=== PATIENT | male | born 1960 | race Caucasian/White ===

== ENCOUNTER 2019-06-28 11:03 | Outpatient (CLI) | payer MEDICARE, MEDICAID, SELFPAY ==
[2019-06-28 12:28] LABS: Free T4 Free Thyroxine 1.35 ng/mL (0.78-2.19)
== END 2019-06-28 11:04 | disposition home or self-care (01) ==
PROVIDERS: Visit Provider Internal Medicine Endocrinology, Diabetes & Metabolism
DX: E03.9 Hypothyroidism, unspecified (principal)
CPT/HCPCS: 36415; 84439; 84443

== ENCOUNTER 2019-07-06 11:41 | Outpatient (CLI) | payer MEDICARE, MEDICAID, SELFPAY ==
[2019-07-06 12:13] LABS: Hematocrit 33.5 % (42.0-52.0); Hemoglobin 10.5 g/dL (14.0-18.0); Immature Platelet Fraction Pct 2.9 % (0.9-11.2); Mean Corpuscular HGB Conc 31.3 g/dl (32-36); Mean Corpuscular Hemoglobin 28.8 pg (26-34); Mean Corpuscular Volume 91.8 fl (80-100); Platelet Count Result 117 k/mm3 (150-375); Red Blood Count 3.65 M/mm3 (4.6-6.20); Red Cell Distribution Width 14.4 % (11.5-14.5); White Blood Count 6.3 K/mm3 (4.5-10.0)
[2019-07-06 12:23] LABS: Alanine Aminotransferase 19 U/L (4-50); Albumin Level 4.5 g/dL (3.5-5.1); Blood Urea Nitrogen 43 mg/dL (9-20); Calcium 9.1 mg/dL (8.4-10.2); Carbon Dioxide 24 mmol/L (22-30); Chloride 106 mmol/L (98-107); Cholesterol 84 mg/dL (0-200); Estimated Glomerular Filt Rate 19; Glucose 153 mg/dL (75-110); HDL Direct 35 mg/dL; Phosphorus 4.3 mg/dL (2.5-4.5); Potassium 4.1 mmol/L (3.4-5.0); Sodium 140 mmol/L (137-145); Triglycerides 136 mg/dL (<150)
[2019-07-06 12:34] LABS: LDL Cholesterol Direct < 30 mg/dL; Parathyroid Intact 155.2 pg/mL (7.5-53.5)
[2019-07-06 13:06] LABS: Total Protein Urine Random 578 mg/dL
[2019-07-06 13:09] LABS: Vitamin D 25 Hydroxy 40.5 ng/mL
== END 2019-07-06 11:42 | disposition home or self-care (01) ==
PROVIDERS: Visit Provider Internal Medicine Nephrology
DX: N18.4 Chronic kidney disease, stage 4 (severe) (principal)
CPT/HCPCS: 36415; 80061; 80069; 82306; 82570; 83970; 84156; 84460; 85027; 85055

== ENCOUNTER 2019-11-12 19:09 | Inpatient (IN) | payer MEDICARE, MEDICAID, SELFPAY ==
--- NOTE | ~2019-11-12 | CT_ITS ---
EXAMINATION: CT brain wo con EXAM DATE: 11/12/2019 20:31 INDICATION: Fall, head injury. TECHNIQUE: Spiral CT of the head was performed without contrast. Axial, coronal and sagittal images were reviewed. The dose-length product (DLP) for this examination was 681.00 mGy-cm. The exposure w as tailored according to patient size, and iterative reconstruction (ASIR) was used as additional dos e reduction technique. There is no prior study for comparison. 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 There is no acute intraparenchymal hemorrhage. N o evidence of intraparenchymal brain mass lesion. No evidence of acute infarction. There is no mass effect or midline shift. The ventricles are normal in size. There are no extra-axial collections. There are no acute calvarial fractures. The orbits are unremarkable. Soft tissue is unremarkable. The visualized sinuses and mastoid air cells are well aerated. IMPRESSION: 1. No acute intracranial findings. Reviewed, dictated and finalized at location A.
--- NOTE | ~2019-11-12 | XR_ITS ---
EXAMINATION: XR hip LT 1V DATE: 11/13/2019 10:56 INDICATION: Proximal left femur fracture. TECHNIQUE: A single view of left hip was obtained. COMPARISON: Pelvis and left hip radiographs 11/12/2019 FINDINGS: There is an intertrochanteric fracture of proximal left femur in near-anatomic alignment. T here is a subcapital fracture of left femoral neck with impaction. There is mild left hip osteoarthri tis. Vascular stents overlie left pelvis. IMPRESSION: 1. Comminuted fracture of proximal left femur including intertrochanteric and subcapital fracture com ponents. 2. Mild left hip osteoarthritis. Reviewed, dictated and finalized at location A. IMPRESSION: 1. Comminuted fracture of proximal left femur including intertrochanteric and s ubcapital fracture components. 2. Mild left hip osteoarthritis.
--- NOTE | ~2019-11-12 | XR_ITS ---
EXAMINATION: XR hip LT 2V w AP pelvis EXAM DATE: 11/12/2019 20:50 INDICATION: Fall, deformity. TECHNIQUE: Left hip frontal, crosstable lateral projections for interpretation. Frontal projection pe lvis. Comparison is made to prior examination from 02/24/2017. FINDINGS: There is acute closed posttraumatic left hip intertrochanteric fracture. No hip dislocation . Aortobiiliac stents. Mild bilateral hip osteoarthritis. Pelvis appears intact. IMPRESSION: Acute left hip intertrochanteric fracture. Reviewed, dictated and finalized at location A.
--- NOTE | ~2019-11-12 | XR_ITS ---
EXAMINATION: XR knee LT 3V DATE: 11/16/2019 13:06 INDICATION: Left knee pain TECHNIQUE: Three views of the left knee were obtained. COMPARISON: None. FINDINGS: Alignment is normal. No fracture or osteochondral lesion. Joint spaces are normal with no e rosions. No joint effusion/synovitis. Calcified atherosclerosis is noted. IMPRESSION: 1. No acute osseous abnormality. Reviewed, dictated and finalized at location A.
--- NOTE | ~2019-11-12 | MR_ITS ---
EXAMINATION: MR knee LT wo con DATE: 11/17/2019 17:54 INDICATION: Left knee pain post trauma TECHNIQUE: Magnetic resonance imaging (MRI) of the left knee was performed without intravenous contra st. Sequences included coronal PD-weighted FSE, coronal PD-weighted FS FSE, sagittal T2-weighted FSE , sagittal PD-weighted FS FSE and axial PD weighted fat saturated FSE. COMPARISON: None. FINDINGS: There is motion artifact or blurring to some degree on all sequences. This mild to moderately limits evaluation, primarily of the articular cartilage. Medial compartment: Medial meniscus is normal. No definitive chondromalacia. Lateral compartment: Lateral meniscus is normal. No definitive chondromalacia. Patellofemoral compartment: No definitive chondromalacia. Ligaments and tendons: Anterior and posterior cruciate ligaments are normal. The medial collateral ligament and fibular meir ateral ligament complex are normal. The extensor mechanism is normal. The visualized medial and later al hamstring tendons as well as the iliotibial band are normal. Fluid: Physiologic amount of fluid in the joint space. No loose osteochondral bodies identified. Small Casey 's cyst. Osseous/other: Normal marrow signal. No fracture or pathologic marrow replacing process. IMPRESSION: 1. Small Casey cyst. Otherwise unremarkable left knee MRI. Assessment of the cartilage is however mod erately limited by motion artifact on multiple sequences. Reviewed, dictated and finalized at location A. IMPRESSION: 1. Small Casey cyst. Otherwise unremarkable left knee MRI. Assessment of the ca rtilage is however moderately limited by motion artifact on multiple sequences.
--- NOTE | ~2019-11-12 | XR_ITS ---
EXAMINATION: XR surgery orthopedic DATE: 11/14/2019 09:05 INDICATION: Intertrochanteric fracture of proximal left femur. TECHNIQUE: 5 intraoperative fluoroscopic views of left femur were obtained. I was not present. Fluoro scopy exposure time was 104 seconds. COMPARISON: Left hip CT 11/13/2019 FINDINGS: There is an intertrochanteric fracture of proximal left femur status post open reduction in ternal fixation with antegrade intramedullary josue, femoral head/neck screw, and distal interlocking s crew. There is mild left hip osteoarthritis. IMPRESSION: 1. Intertrochanteric fracture of proximal left femur status post open reduction internal fixation. 2. Mild left hip osteoarthritis. Reviewed, dictated and finalized at location A.
--- NOTE | ~2019-11-12 | CT_ITS ---
EXAMINATION: CT hip LT wo con DATE: 11/13/2019 12:21 INDICATION: Left hip fracture. TECHNIQUE: Computed tomography (CT) of the left hip was performed without intravenous contrast. Autom ated exposure control and iterative reconstruction technique were employed. The dose-length product w as 669.04 mGy-cm. COMPARISON: Left hip radiographs 11/12/2019, 11/13/2019 FINDINGS: There are stents in abdominal aorta and the common and external iliac arteries. The prostat e is mildly enlarged. There is moderate lumbar spondylosis. There is a comminuted intertrochanteric f racture of proximal left femur. The main distal fracture fragment demonstrates impaction and mild barb us and posterior angulation. There is a large distribution of serpiginous sclerosis in left femoral h ead, consistent with osteonecrosis. There is mild left hip osteoarthritis. IMPRESSION: 1. Comminuted intertrochanteric fracture of proximal left femur. 2. Osteonecrosis of left femoral head. 3. Mild left hip osteoarthritis. Reviewed, dictated and finalized at location A.
--- NOTE | ~2019-11-12 | XR_ITS ---
EXAMINATION: XR chest 1V EXAM DATE: 11/12/2019 20:50 INDICATION: Fall, history COPD, CHF, stents. TECHNIQUE: Portable AP frontal chest x-ray was obtained. Comparison is made to prior examination from 08/21/2018. FINDINGS: Sternotomy wires are present without findings to suggest sternal dehiscence. Cardiac valve replacement. The lungs are clear. There are no pleural effusions. Cardiac silhouette is prominent b ut magnified on this AP technique. There is no pneumothorax suspected. The bones and soft tissues are unremarkable. IMPRESSION: No acute cardiopulmonary findings. Reviewed, dictated and finalized at location A.
--- NOTE | 2019-11-12 19:04 | ED.FALL ---
HPI - Fall General Chief Complaint: Fall Stated Complaint: fall Source: patient and EMS Mode of arrival: EMS Limitations: no limitations History of Present Illness HPI Narrative: Patient is a 59-year-old male with a history of atrial fibrillation, congestive heart failure, CABG in July 2018, single-vessel, COPD, diabetes who presents for evaluation of fall and left hip pain. Patient reports that he was taking some food from his car to inside of his house when he fell ascending 2 steps inside of his garage. Patient denies any prodromal symptoms such as dizziness, palpitations, but is also unsure if he tripped over anything. Patient is unsure if he hit his head. He is currently reporting severe left hip pain. His left leg is shortened and externally rotated. He denies any numbness. Pain is severe in nature. No radiation to the back. No current chest pain or shortness of breath. Related Data Home Medications Medication Instructions Recorded Confirmed amlodipine 10 mg PO DAILY 11/12/19 11/12/19 apixaban [Eliquis] 5 mg PO BID 11/12/19 11/12/19 clopidogrel 11/12/19 finasteride mg 11/12/19 hydrocodone-acetaminophen 1 tablet PO PRN PRN 11/12/19 11/12/19 insulin aspart U-100 [Novolog 11/12/19 U-100 Insulin aspart] levothyroxine 125 mcg PO DAILY 11/12/19 11/12/19 loratadine 10 mg PO DAILY 11/12/19 11/12/19 metoprolol succinate 100 mg PO DAILY 11/12/19 11/12/19 morphine 30 mg PO PRN PRN 11/12/19 11/12/19 rosuvastatin mg 11/12/19 tamsulosin mg PO 11/12/19 Allergies Allergy/AdvReac Type Severity Reaction Status Date / Time Penicillins Allergy Unknown Verified 06/09/14 14:32 Review of Systems Review of Systems: Narrative: CONSTITUTIONAL: Denies fever, chills, or sweats. EYES: Denies visual changes CARDIOVASCULAR: Denies chest pain, palpitations, or edema. RESPIRATORY: Denies cough or dyspnea. GASTROINTESTINAL: Denies abdominal pain, nausea, vomiting, or diarrhea. GENITOURINARY: Denies dysuria or hematuria. SKIN: Denies rash or itching. MUSCULOSKELETAL: Denies back pain, reports left hip pain NEUROLOGIC: Denies headache, numbness, or weakness. [facility] Past Medical History Medical History (Updated 11/12/19 @ 21:25 by Maryann England MD) Congestive heart failure Diabetes Endocarditis Hyperlipidemia Hypertension Surgical History Surgical History (Updated 11/12/19 @ 19:34 by Maryann England MD) S/P CABG x 1 Family History Family History (Updated 11/25/13 @ 07:13 by DOCTOR UNKNOWN) Father Family history of liver disease Mother Family history of heart disease in male family member before age 55 Social History Social History Smoking status: Never smoker Second hand tobacco smoke exposure: Yes Alcohol intake: never Gender identity (if verbalized by the patient): Male Exam Narrative: Exam Narrative: Nursing note and vitals reviewed. CONSTITUTIONAL: The patient appears well-developed and well-nourished. Acutely uncomfortable. HEAD: Normocephalic and atraumatic. EYES: PERRL, EOMI, normal conjunctiva, anicteric EARS: External ears clear bilaterally, no hemotympanum MOUTH: OP clear, no erythema, exudates NECK: midline trachea, supple, FROM. No midline cervical spinal tenderness. CARDIOVASCULAR: Normal rate, regular rhythm, normal heart sounds and intact distal pulses. No murmurs, rubs, gallops. PULMONARY: Effort normal and breath sounds normal. No respiratory distress. The patient has no wheezes, rales, ronchi. No chest wall tenderness, crepitus or ecchymoses. ABDOMINAL: Soft. Nontender, nondistended. No palpable masses EXTREMITIES:: moving all extremities symmetrically. -RUE: No deformity. Normal ROM at shoulder, elbow, wrist, and hand. Sensation intact M/U/R. Pulse 2+. -LUE: No deformity. Normal ROM at shoulder, elbow, wrist, and hand., Sensation intact M/U/R. Pulse 2+ -RLE: No deformity. Normal ROM at hip, knee, ankle. Sensation intact distally. -LLE: There is pain at the left hip. T
[2019-11-12 19:18] VITALS: BP 142/74; PULSE 79; RESP 20; TEMP 37.1; O2SAT 100
--- NOTE | 2019-11-12 19:30 | ECG_ITS ---
Measurements Intervals Alloy Rate: 75 P: 51 UT: 199 QRS: 50 QRSD: 100 T: 84 QT: 405 QTc: 453 Interpretive Statements SINUS RHYTHM BORDERLINE ST-T WAVE ABNORMALITY- HIGH LATERAL LEADS BASELINE ARTIFACT- I, II, III, AVR, AVL, AVF BORDERLINE ECG Electronically Signed On 11-13-2019 7:37:07 CDT by Deondre Wise D.O.
[2019-11-12] MEDS: SODIUM CHLORIDE 0.9% IV 1,000 ML 999 ML IV CONT (19:36)
[2019-11-12] MEDS: ONDANSETRON INJ 4 MG/2 ML VIAL IV PUSH (19:37)
[2019-11-12 20:25] LABS: Basophils Percent Auto 0.1 % (0.2-1.2); Eosinophils Absolute Auto 0.2 K/mm3 (0-0.3); Hematocrit 30.1 % (42.0-52.0); Hemoglobin 9.7 g/dL (14.0-18.0); Immature Granulocyte Absolute 0.08 K/mm3 (0.00-0.031); Lymphocytes Percent Auto 19.7 % (18.3-44.2); Mean Corpuscular HGB Conc 32.2 g/dl (32-36); Mean Corpuscular Hemoglobin 28.7 pg (26-34); Mean Corpuscular Volume 89.1 fl (80-100); Mean Platelet Volume 10.4 fl (7.4-10.4); Monocytes Absolute Auto 0.5 K/mm3 (0.1-0.6); Monocytes Percent Auto 6.7 % (2.6-8.5); Neutrophils Absolute Auto 5.7 K/mm3 (1.3-6.7); Neutrophils Percent Auto 70.5 % (45.5-73.1); Platelet Count Result 104 k/mm3 (150-375); Red Blood Count 3.38 M/mm3 (4.6-6.20); Red Cell Distribution Width 15.1 % (11.5-14.5); White Blood Count 8.1 K/mm3 (4.5-10.0)
[2019-11-12 20:35] LABS: INR 1.2; Prothrombin Time 14.7 Seconds (11.1-14.7)
[2019-11-12 20:36] LABS: Partial Thromboplastin Time 32.7 SECONDS (22.3-36.8)
[2019-11-12 20:37] LABS: Anion Gap 9 mmol/L (8-16); Blood Urea Nitrogen 54 mg/dL (9-20); Calcium 8.1 mg/dL (8.4-10.2); Carbon Dioxide 22 mmol/L (22-30); Chloride 106 mmol/L (98-107); Estimated CRCL calculation 30 ml/min; Estimated Glomerular Filt Rate 19; Glucose 140 mg/dL (75-110); Potassium 4.4 mmol/L (3.4-5.0); Sodium 137 mmol/L (137-145)
[2019-11-12 20:49] LABS: Troponin I < 0.012 ng/mL (0.000-0.034)
[2019-11-12 21:24] VITALS: TEMP 37.1
[2019-11-12 21:28] VITALS: BP 116/79; PULSE 74; RESP 20; O2SAT 92
[2019-11-12 21:52] VITALS: BP 122/73; PULSE 77; RESP 18; O2SAT 94
[2019-11-12 22:20] VITALS: BP 135/79; PULSE 88; RESP 16; TEMP 37.1; O2SAT 94
[2019-11-12 22:28] VITALS: BP 133/72; PULSE 77; RESP 18; TEMP 37.1; O2SAT 97; BMI 30.6
--- NOTE | 2019-11-12 22:55 | PM.IMHP ---
H&P: HPI History of Present Illness Date/Time: 11/12/19 22:55 Chief complaint: left hip fracture Narrative: This is a pleasant 59 year old Diabetic male with known history of atrial fibrillation on chronic anticoagulation w/ Eliquis, CHF, CABG x 1, COPD and Aortic Valve replacement with Porcine valve who presented to the hospital with a complaint of suffering a fall at home and ambulatory dysfunction. The patient was going up 2 steps in his garage when he fell. He doesn't remember exactly if he just lost his balance or tripped on something. He denies any shortness of breath or chest pain before falling and wasn't sure if he suffered any head trauma. The patient could not ambulate after his fall. On arrival to the hospital the patient was found to have a left hip intertrochanteric fracture on xray films. Ortho was consulted by ER provider and we were asked to admit the patient to the hospital for further care. He denies any other symptoms other than left hip pain. No chest pain, shortness of breath, fever, cough, sore throat, abdominal pain, dysuria, headache, abdominal pain, nausea, vomiting, diarrhea or rectal bleeding. The patient has been on antibiotics for the past week for a left ear infection which he states is now resolved. Review of Systems Review of Systems: All systems reviewed & are unremarkable except as noted in HPI and below PMFSH Past Medical History Medical History Atrial fibrillation Congestive heart failure COPD (chronic obstructive pulmonary disease) Diabetes Endocarditis Hyperlipidemia Hypertension Hypothyroidism Surgical History Surgical History S/P CABG x 1 Family History Family History (Updated 11/12/19 @ 23:43 by Pili Roldan RN) Father Family history of liver disease Mother Family history of heart disease in male family member before age 55 Sibling Acute myocardial infarction Social History Social History Smoking packs per day: 1 Smoking cigarettes per day: 20.0 Years smoked: 30 Smoking pack-years: 30.00 Smoking status: Current every day smoker Tobacco type: cigarettes Second hand tobacco smoke exposure: Yes Alcohol intake: never Substance use: never Gender identity (if verbalized by the patient): Male Spiritual care concerns: No Meds Home Medications and Allergies Home Medications Medication Instructions Recorded Confirmed Type amlodipine 10 mg PO DAILY 11/12/19 11/12/19 History apixaban [Eliquis] 5 mg PO BID 11/12/19 11/12/19 History clopidogrel 75 mg PO DAILY 11/12/19 11/13/19 History finasteride 5 mg PO DAILY 11/12/19 11/13/19 History hydrocodone-acetaminophen 1 tablet PO Q6H PRN 11/12/19 11/13/19 History insulin aspart U-100 [Novolog 5 unit SUBCUT USEASDIRECTD 11/12/19 11/13/19 History U-100 Insulin aspart] levothyroxine 125 mcg PO DAILY 11/12/19 11/12/19 History loratadine 10 mg PO DAILY 11/12/19 11/12/19 History metoprolol succinate 100 mg PO DAILY 11/12/19 11/12/19 History morphine 30 mg PO BID 11/12/19 11/13/19 History rosuvastatin 20 mg PO DAILY 11/12/19 11/13/19 History tamsulosin 0.4 mg PO HS 11/12/19 11/13/19 History doxycycline hyclate 100 mg PO BID 11/13/19 11/13/19 History duloxetine 60 mg PO DAILY 11/13/19 11/13/19 History pantoprazole 40 mg PO DAILY 11/13/19 11/13/19 History Allergies Allergy/AdvReac Type Severity Reaction Status Date / Time Penicillins Allergy Unknown Verified 06/09/14 14:32 Vital Signs Vital Signs - 24 hr 11/12/19 19:18 11/12/19 21:24 11/12/19 21:28 Temperature 37.1 C 37.1 C Pulse Rate 79 74 Respiratory Rate 20 20 Blood Pressure 142/74 H 116/79 Pulse Oximetry 100 92 11/12/19 21:52 11/12/19 22:20 11/12/19 22:28 Temperature 37.1 C 37.1 C Pulse Rate 77 88 77 Respiratory Rate 18 16 18 Blood Pressure 122/73 135/79 133/72 Pulse Ox
--- NOTE | 2019-11-12 23:26 | ADMGEN ---
This patient, Dustin Angel, was admitted to [facility] Surg Room 303-01. Patient/family oriented to hospital policies and general routines including ID bracelet, bed and alarms, visiting hours, pain management, procedures, bathroom and other care routines, personal items, smoking policy, room service/diet, and visiting hours. Valuables list has been completed. Information on how to activate the Rapid Response Team has been discussed. Patient/Family are encouraged to report perceived risks to care and to ask questions if they do not understand what they are told or what they should do.
[2019-11-13] VITALS (7 sets, daily range): BP systolic 152–161; BP diastolic 73–84; PULSE 81–98; RESP 16–22; TEMP 36.6–37.9; O2SAT 90–94
[2019-11-13 00:41] LABS: Glucose Point of Care 171 (65-105)
[2019-11-13 06:35] LABS: Basophils Percent Auto 0.1 % (0.2-1.2); Eosinophils Percent Auto 0.4 % (0-4.4); Hematocrit 30.4 % (42.0-52.0); Hemoglobin 9.8 g/dL (14.0-18.0); Immature Granulocyte Absolute 0.06 K/mm3 (0.00-0.031); Immature Granulocyte Percent A 0.6 % (0-0.5); Lymphocytes Absolute Auto 1.18 K/mm3 (0.9-3.2); Lymphocytes Percent Auto 10.9 % (18.3-44.2); Mean Corpuscular HGB Conc 32.2 g/dl (32-36); Mean Corpuscular Hemoglobin 28.4 pg (26-34); Mean Corpuscular Volume 88.1 fl (80-100); Mean Platelet Volume 10.9 fl (7.4-10.4); Monocytes Absolute Auto 0.5 K/mm3 (0.1-0.6); Platelet Count Result 126 k/mm3 (150-375); Red Blood Count 3.45 M/mm3 (4.6-6.20); White Blood Count 10.8 K/mm3 (4.5-10.0)
[2019-11-13 06:54] LABS: Anion Gap 11 mmol/L (8-16); Blood Urea Nitrogen 54 mg/dL (9-20); Calcium 8.5 mg/dL (8.4-10.2); Carbon Dioxide 21 mmol/L (22-30); Chloride 106 mmol/L (98-107); Estimated CRCL calculation 32 ml/min; Estimated Glomerular Filt Rate 21; Glucose 225 mg/dL (75-110); Potassium 4.6 mmol/L (3.4-5.0); Sodium 138 mmol/L (137-145)
--- NOTE | 2019-11-13 08:58 | WPDANESEPP ---
Anes - Eval Pre Procedure Procedure: Left IM nailing Date/Time: 11/13/19 08:58 Surgeon: Kd Grimes M.D. Preop Diagnosis: left hip fracture Pre Op Diagnosis: left hip fracture Patient Data Age: 59 Gender: M Height: 1.91 m Weight: 111.2 kg Last Vital Signs Temp 37.6 C H 11/13/19 06:00 Pulse 98 11/13/19 06:00 Resp 20 11/13/19 06:00 BP 153/84 H 11/13/19 06:00 Pulse Ox 94 11/13/19 06:00 Allergies Allergy/AdvReac Type Severity Reaction Status Date / Time Penicillins Allergy Unknown Verified 06/09/14 14:32 Home Medications Medication Instructions Recorded Confirmed Type amlodipine 10 mg PO DAILY 11/12/19 11/12/19 History apixaban [Eliquis] 5 mg PO BID 11/12/19 11/12/19 History clopidogrel 75 mg PO DAILY 11/12/19 11/13/19 History finasteride 5 mg PO DAILY 11/12/19 11/13/19 History hydrocodone-acetaminophen 1 tablet PO Q6H PRN 11/12/19 11/13/19 History insulin aspart U-100 [Novolog 5 unit SUBCUT USEASDIRECTD 11/12/19 11/13/19 History U-100 Insulin aspart] levothyroxine 125 mcg PO DAILY 11/12/19 11/12/19 History loratadine 10 mg PO DAILY 11/12/19 11/12/19 History metoprolol succinate 100 mg PO DAILY 11/12/19 11/12/19 History morphine 30 mg PO BID 11/12/19 11/13/19 History rosuvastatin 20 mg PO DAILY 11/12/19 11/13/19 History tamsulosin 0.4 mg PO HS 11/12/19 11/13/19 History doxycycline hyclate 100 mg PO BID 11/13/19 11/13/19 History duloxetine 60 mg PO DAILY 11/13/19 11/13/19 History pantoprazole 40 mg PO DAILY 11/13/19 11/13/19 History Laboratory Tests 11/12/19 11/12/19 11/12/19 20:20 20:20 20:20 WBC 8.1 K/mm3 K/mm3 (4.5-10.0) RBC 3.38 M/mm3 L M/mm3 (4.6-6.20) Hgb 9.7 g/dL L g/dL (14.0-18.0) Hct 30.1 % L % (42.0-52.0) MCV 89.1 fl fl (80-100) MCH 28.7 pg pg (26-34) MCHC 32.2 g/dl g/dl (32-36) RDW 15.1 % H % (11.5-14.5) Plt Count 104 k/mm3 L k/mm3 (150-375) MPV 10.4 fl fl (7.4-10.4) Immature Gran % (Auto) 1.0 % H % (0-0.5) Neut % (Auto) 70.5 % % (45.5-73.1) Lymph % (Auto) 19.7 % % (18.3-44.2) Taliaferro % (Auto) 6.7 % % (2.6-8.5) Eos % (Auto) 2.0 % % (0-4.4) Baso % (Auto) 0.1 % L % (0.2-1.2) Lymph # (Auto) 1.60 K/mm3 K/mm3 (0.9-3.2) Tal[place]ferro # (Auto) 0.5 K/mm3 K/mm3 (0.1-0.6) Eos # (Auto) 0.2 K/mm3 K/mm3 (0-0.3) Baso # (Auto) 0.0 K/mm3 K/mm3 (0.0-0.1) Abs Immat Gran (auto) 0.08 K/mm3 H K/mm3 (0.00-0.031) Absolute Neuts (auto) 5.7 K/mm3 K/mm3 (1.3-6.7) Absolute Nucleated RBC 0.0 K/mm3 K/mm3 (0.0-0.012) Nucleated RBC % 0.0 % % (0.0-0.2) PT 14.7 Seconds Seconds (11.1-14.7) INR 1.2 APTT 32.7 SECONDS SECONDS (22.3-36.8) Sodium 137 mmol/L mmol/L (137-145) Potassium 4.4 mmol/L mmol/L (3.4-5.0) Chloride 106 mmol/L mmol/L (98-107) Carbon Dioxide 22 mmol/L mmol/L (22-30) Anion Gap 9 mmol/L mmol/L (8-16) BUN 54 mg/dL H D mg/dL (9-20) Creatinine 3.30 mg/dL H mg/dL (0.7-1.3) Estim Creat Clear Calc 30 ml/min ml/min Estimated GFR 19 L (59 - ) Glucose 140 mg/dL H mg/dL (75-110) POC Capillary Glucose Calcium 8.1 mg/dL L mg/dL (8.4-10.2) Troponin I < 0.012 ng/mL ng/mL (0.000-0.034) 11/12/19 11/13/19 11/13/19 23:35 06:09 06:09 WBC 10.8 K/mm3 H K/mm3 (4.5-10.0) RBC 3.45 M/mm3 L M/mm3 (4.6-6.20) Hgb 9.8 g/dL L g/dL (14.0-18.0) Hct 30.4 % L % (42.0-52.0) MCV 88.1 fl fl (80-100) MCH 28.4 pg pg (26-34) MCHC 32.2 g/dl g/dl (32-36) RDW 15.0 % H % (11.5-14.5) Plt Count 126 k/mm3 L k/mm3 (150-375) MPV 10.9 fl H fl (7.4-10.4) Immature G
[2019-11-13] MEDS: LEVOTHYROXINE SODIUM 125 MCG TABLET PO (09:29)
[2019-11-13] MEDS: amLODIPine BESYLATE 5 MG TABLET 10 MG PO (09:29)
[2019-11-13] MEDS: METOPROLOL SUCCINATE EXT REL 100 MG TABCR PO (09:30)
[2019-11-13] MEDS: LORATADINE 10 MG TABLET PO (09:30)
[2019-11-13] MEDS: FINASTERIDE 5 MG TABLET PO (09:30)
[2019-11-13] MEDS: DULoxetine HCL 60 MG CAPSULE.DR PO (09:30)
[2019-11-13] MEDS: PANTOPRAZOLE 40 MG TABLET PO (09:31)
[2019-11-13] MEDS: ROSUVASTATIN 10 MG TABLET 20 MG PO (09:31)
[2019-11-13 10:30] LABS: Glucose Point of Care 214 (65-105)
[2019-11-13] MEDS: INSULIN ASPART (*BKC) 100 UNITS/ML SUB-Q ×2 (10:34→18:22)
--- NOTE | 2019-11-13 12:33 | PM.CNNEP ---
Assessment and Plan Assessment and plan (1) CKD stage 4 due to type 1 diabetes mellitus: Code(s): E10.22 - Type 1 diabetes mellitus with diabetic chronic kidney disease; N18.4 - Chronic kidney disease, stage 4 (severe) Status: Acute Assessment and Plan: the patient has chronic kidney disease. In June his creatinine was 3.4 and GFR was 19. In February of 2019 it was 3.2 in the GFR was 20. His chronic kidney disease is stable. This is from his diabetes hypertension and probably vascular disease. Patient is a it a bit higher risk for surgery however he is at his baseline risk and we cannot reduce it by waiting. So it is okay to proceed with surgery from the kidney standpoint. (2) Hypertension: Qualifiers: Hypertension type: unspecified Qualified Code(s): I10 - Essential (primary) hypertension Code(s): I10 - Essential (primary) hypertension Status: Chronic Assessment and Plan: his blood pressure is pretty well controlled. It is a bit high when he is in pain. (3) Diabetes: Qualifiers: Diabetes mellitus type: type 2 Diabetes mellitus [employer] insulin use: with fdc use Diabetes mellitus complication status: with kidney complications Diabetes mellitus complication detail: with chronic kidney disease Chronic kidney disease stage: stage 4 (severe) Qualified Code(s): E11.22 - Type 2 diabetes mellitus with diabetic chronic kidney disease; N18.4 - Chronic kidney disease, stage 4 (severe); Z79.4 - longterm (current) use of insulin Code(s): E11.9 - Type 2 diabetes mellitus without complications Status: Chronic Assessment and Plan: On Accu-Cheks and sliding-scale insulin (4) Congestive heart failure: Qualifiers: Heart failure type: unspecified Heart failure chronicity: chronic Qualified Code(s): I50.9 - Heart failure, unspecified Code(s): I50.9 - Heart failure, unspecified Status: Chronic (5) Atrial fibrillation: Qualifiers: Atrial fibrillation type: unspecified Qualified Code(s): I48.91 - Unspecified atrial fibrillation Code(s): I48.91 - Unspecified atrial fibrillation Status: Chronic Assessment and Plan: He is on Eliquis. Heart rate is well controlled. (6) COPD (chronic obstructive pulmonary disease): Qualifiers: COPD type: unspecified COPD Qualified Code(s): J44.9 - Chronic obstructive pulmonary disease, unspecified Code(s): J44.9 - Chronic obstructive pulmonary disease, unspecified Status: Chronic Assessment and Plan: He continues to smoke. History of Present Illness Reason for Consult Consult date: 11/13/19 Chief Complaint Chief complaint: left hip fracture History of Present Illness Narrative: Dustin is a very pleasant 59-year-old gentleman who has multiple medical problems including chronic kidney disease disease stage IV due to diabetes, hypertension, vascular disease. He also has coronary artery disease and had an aortic valve replacement, mitral valve replacement, and bypass earlier this year. He has peripheral vascular disease, gastric ulcer, BPH, diabetes, hypertension, neuropathy,. The patient came in the hospital because he fell at home. He was walking up 1 step and stumbled and fell and fractured his left greater trochanter. The patient is in bed now. Dr. Grimse saw the patient and is going to take him to surgery tomorrow after his Eliquis wears off. The patient received pain meds but is groggy. I get information from the chart, him, and his who was in the room. He says he did not faint but rather he stumbled. Review of Systems Constitutional: Constitutional: Reports no additional constitutional complaints Eyes: Eyes: Reports no additional eye complaints ENT: Reports system reviewed and no additional complaints, except as documented Cardiovascular: Cardiovascular: Reports no additional card
[2019-11-13] MEDS: ACETAMINOPHEN 325 MG TABLET 650 MG PO ×3 (12:51→23:45)
[2019-11-13 13:05] LABS: Glucose Point of Care 196 (65-105)
--- NOTE | 2019-11-13 13:23 | PM.CNCAR ---
Assessment and Plan Additional Plan 59-year-old man with: acute inter trochanteric hip fracture anticipating surgical repair tomorrow ischemic heart disease with PRESTON graft to the LAD last year valvular heart disease with bioprosthetic AVR and mitral valve repair last year atrial fibrillation currently in sinus rhythm not requiring antiarrhythmic therapy sleep apnea chronic renal failure since the patient's cardiac surgery was quite recent I do not believe the cardiac risk for hip surgery is significantly elevated. His principal cardiac concern in my opinion would be the likelihood of recurrence of atrial fibrillation which would not be serious should that occur. The patient's 's principal concern is regarding his chronic kidney disease obviously none of this can be avoided. The operation in question here is not elective and must proceed as soon as is reasonable. Tomorrow seems appropriate given time to withdraw from apixaban. Jose Manuel Hendricks MD [facility] History of Present Illness History of Present Illness Consult date/time: 11/13/19 13:23 Reason For Visit: left hip fracture Narrative: This is a 59-year-old man very unfortunate patient who fell and is carotid yesterday came to the hospital and was found to have sustained an acute hip fracture. The patient has a significant cardiac history also history of renal failure. He follows in our practice with Dr. Hunter. The patient was in his usual state of health when he was in his garage yesterday and had just come back from a shopping trip he was walking up a couple of steps to get into his home missed step fell on the concrete and sustained a hip fracture. He did not fall because of a syncopal episode sounds like a mechanical fall. In any event we have been asked to see him to comment on his cardiac risk preoperatively. He is anticipating surgery to treat his hip fracture tomorrow morning. Surgery is being delayed for a couple of days because he has been anticoagulated with apixaban. The patient has a history of paroxysmal atrial fibrillation, coronary heart disease and valvular heart disease. He was treated at [facility] in August of 2018 for his valvular heart disease and coronary disease with a or aortic valve replacement which was done to treat severe aortic regurgitation. He has a aortic bioprosthesis and he has a PRESTON graft placed to the LAD. At the same time he also had a mitral valve repair I believe an annuloplasty. He does not have any current cardiac symptoms such as palpitations chest pain shortness of breath orthopnea PND or edema. He does also have hypertension a small abdominal aortic aneurysm and a history of obstructive sleep apnea which is being would treated with CPAP. Review of Systems Constitutional: Constitutional: Reports fatigue and Reports weakness Eyes: Eyes: Reports no additional eye complaints ENT: Reports system reviewed and no additional complaints, except as documented Cardiovascular: Cardiovascular: Reports no additional cardiovascular complaints Respiratory: Respiratory: Reports no additional respiratory complaints Gastrointestinal: Gastrointestinal: Reports nausea Genitourinary: Genitourinary: Reports no additional male genitourinary complaints Musculoskeletal: Musculoskeletal: Reports as per HPI Integumentary/Breasts: Skin/Breast: Reports system reviewed and no additional complaints, except as docu Neurologic: Reports system reviewed and no additional complaints, except as documented Psychiatric: Psychiatric: Reports no additional psychiatric complaints Endocrine: Endocrine: Reports no additional endocrine complaints Hematologic/Lymphatic: Hematologic/Lymphatic: Reports no additional hematologic/lymphatic complaints [facility] Past Medical History Medical History (Updated 11/13/19 @ 12:37 by Jabari Hairston MD) Atrial fibrillation 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
--- NOTE | 2019-11-13 15:07 | PM.CNOR ---
Assessment and Plan Additional Plan Patient is a 59-year-old gentleman who stumbled and fell sustaining a left intertrochanteric hip fracture yesterday evening taking the step from his garage into his house. He denies loss of consciousness but noted that he did hit his head as well. He was evaluated emergency room and found to have a mildly comminuted intertrochanteric left femur fracture. 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 He has a significant cardiac history and this is outlined in Dr. Hendricks is consultation note. Since his heart surgery has had stage III to stage IV kidney failure. His most recent creatinine was 3.1 estimated creatinine clearance 32 GFR 21. His tells me that his GFR last week at an office visit was only 18. He normally sees Dr. Hairston and Dr. Hairston has seen him in consultation today as well. His troponin at 820 last night was normal. He has type 1 diabetes as well and chronic numbness in his feet. He has a history of atrial fibrillation and this is why he takes the Eliquis. He also takes Plavix and loaded Pean finasteride morphine 30 mg twice daily for chronic severe back pain, levothyroxine, loratadine, metoprolol, rosuvastatin, and tamsulosin. He has a Carmen catheter in currently in his urine output looks excellent. He has history of COPD in the has smoked 1 pack of cigarettes per day for last 30 years and continues to smoke and he was advised to stop smoking completely at this time. He has history of congestive heart failure endocarditis hyperlipidemia hypertension hypothyroidism history of coronary artery bypass. He lives with his . His states that he does not walk around very much and is a minimal ambulator currently. He states that many years ago he had a rash with penicillin and denies any throat swelling shortness of breath Or angioedema symptoms. His laboratory studies today white count 10.8. Urine and reflex in acid been ordered. Hemoglobin was 9.8 this morning unchanged from yesterday. Four months ago it was 10.4 and 8 months ago was 11.2. He has chronic anemia. His platelets were 126,000. glucose 225. We will check a 25 hydroxy vitamin-D level tomorrow morning. I will also check CBC and Chem panel tomorrow morning. On exam he is alert and oriented. He denies any other injury except for pain in the left hip which is severe. We have him on schedule Tylenol and hydromorphone injections. Cap not graph E is in place in case he develops respiratory depression as he is tolerant to narcotics and will require higher doses than usual. He had 2+ dorsalis pedis and posterior tibial artery pulses in the left foot. He did wiggle his toes a little bit of dorsiflexion but complained of severe pain in his left hip when he tried to move so he is inhibited. He reports diminished light touch sensation in both feet which is chronic due to diabetic neuropathy it is believed. I have discussed options with patient and his . With his degree of comminution I would recommend a trochanteric nail and sliding screw device. We have made arrangements to proceed tomorrow morning at 7:30 a.m. at which point he will be about 46 hours since his last 5 mg Eliquis does. His Eliquis will be metabolized more slowly because of his renal failure. Postoperatively I would want him to be on a lower dose of Eliquis for DVT prophylaxis and hopefully the cardiology service will feel that is acceptable. He is at significantly higher risk for bleeding and needing transfusion since he is on both Plavix and Eliquis now and he starts out with significant anemia which may be lower tomorrow before surgery due to ongoing blood loss. I discussed that he is at some increased risk for infection because of his history of diabetes. We wi
--- NOTE | 2019-11-13 15:11 | PCRCNOTE ---
pt has a cpap at home and does not wear machine and has not worn it in a few years. Family and patient stated he wont wear ours either
--- NOTE | 2019-11-13 15:18 | PM.IMPN ---
Progress Note: A&P Assessment and Plan (1) Closed fracture of left hip: Qualifiers: Encounter type: initial encounter Qualified Code(s): S72.002A - Fracture of unspecified part of neck of left femur, initial encounter for closed fracture Code(s): S72.002A - Fracture of unspecified part of neck of left femur, initial encounter for closed fracture Status: Acute Assessment and Plan: Dr. Grimes has been consulted and appreciate recommendations. Plan is for surgery tomorrow Continue pain control w/ IV dilaudid for now; post op pain per Ortho Continue ashley catheter PT/OT per Ortho CC following and possibly working on placement for disposition (2) Chronic kidney disease: Qualifiers: Chronic kidney disease stage: stage 1 Qualified Code(s): N18.1 - Chronic kidney disease, stage 1 Code(s): N18.9 - Chronic kidney disease, unspecified Status: Chronic Assessment and Plan: Cr 3.10. Appears to be at baseline. Follows Dr. Hairston as outpatient; he has been consulted per Ortho given complexity of continuous pillowcase cutter renal function avoid nephrotoxic agents renally dose medications Appreciate Nephrology recommendations (3) Diabetes: Qualifiers: Chronic kidney disease stage: stage 4 (severe) Diabetes mellitus complication detail: with chronic kidney disease Diabetes mellitus complication status: with kidney complications Diabetes mellitus correction insulin use: with yacht master use Diabetes mellitus type: type 2 Qualified Code(s): E11.22 - Type 2 diabetes mellitus with diabetic chronic kidney disease; N18.4 - Chronic kidney disease, stage 4 (severe); Z79.4 - ornithology teacher (current) use of insulin Code(s): E11.9 - Type 2 diabetes mellitus without complications Status: Chronic Assessment and Plan: BGL high 100s-low 200s Accuchecks, SSI Coverage, hypoglycemic protocol, diabetic diet Consider resuming home insulin regimen (4) Hypertension: Qualifiers: Hypertension type: unspecified Qualified Code(s): I10 - Essential (primary) hypertension Code(s): I10 - Essential (primary) hypertension Status: Chronic Assessment and Plan: Stable but somewhat elevated today - BP 150s sys, Likely secondary to pain Monitor blood pressure. Continue amlodipine and metoprolol. (5) Congestive heart failure: Qualifiers: Heart failure chronicity: chronic Heart failure type: unspecified Qualified Code(s): I50.9 - Heart failure, unspecified Code(s): I50.9 - Heart failure, unspecified Status: Chronic Assessment and Plan: Currently compensated. Monitor Is and Os, daily weights. continue home CHF medications. (6) Atrial fibrillation: Qualifiers: Atrial fibrillation type: unspecified Qualified Code(s): I48.91 - Unspecified atrial fibrillation Code(s): I48.91 - Unspecified atrial fibrillation Status: Chronic Assessment and Plan: Appears to be in sinus rhythm at time of visit; rate controlled Hold Eliquis as the patient will need surgery Continue beta rich. (7) COPD (chronic obstructive pulmonary disease): Qualifiers: COPD type: unspecified COPD Qualified Code(s): J44.9 - Chronic obstructive pulmonary disease, unspecified Code(s): J44.9 - Chronic obstructive pulmonary disease, unspecified Status: Chronic Assessment and Plan: No acute issues. Lung exam unremarkable Continue bronchodilators as needed. (8) Hypothyroidism: Qualifiers: Hypothyroidism type: unspecified Qualified Code(s): E03.9 - Hypothyroidism, unspecified Code(s): E03.9 - Hypothyroidism, unspecifi
[2019-11-13] MEDS: LACTATED RINGERS 1,000 ML 30 ML IV CONT (16:04)
[2019-11-13 19:11] LABS: Glucose Point of Care 207 (65-105)
[2019-11-13] MEDS: TAMSULOSIN HCL 0.4 MG CAPSULE PO (20:17)
[2019-11-13 20:59] LABS: Glucose Point of Care 179 (65-105)
[2019-11-14] VITALS (23 sets, daily range): BP systolic 110–155; BP diastolic 67–103; PULSE 63–82; RESP 12–22; TEMP 36.3–37.1; O2SAT 92–99
[2019-11-14] MEDS: LEVOTHYROXINE SODIUM 125 MCG TABLET PO (05:26)
[2019-11-14] MEDS: ACETAMINOPHEN 325 MG TABLET 650 MG PO ×3 (05:27→17:23)
[2019-11-14 06:32] LABS: Hematocrit 28.5 % (42.0-52.0); Hemoglobin 9.2 g/dL (14.0-18.0); Mean Corpuscular HGB Conc 32.3 g/dl (32-36); Mean Corpuscular Hemoglobin 28.9 pg (26-34); Mean Corpuscular Volume 89.6 fl (80-100); Mean Platelet Volume 11.2 fl (7.4-10.4); Platelet Count Result 111 k/mm3 (150-375); Red Blood Count 3.18 M/mm3 (4.6-6.20); Red Cell Distribution Width 15.1 % (11.5-14.5); White Blood Count 9.2 K/mm3 (4.5-10.0)
--- NOTE | 2019-11-14 06:58 | WPDHPUPDATE1 ---
History and Physical Update Update Date/Time: 11/14/19 06:58 History and Physical has been reviewed, including an updated exam of the patient. There are NO changes in the patient's condition. Risks, benefits, and alternatives have been discussed and questions answered. Patient agrees to proceed with procedure.
[2019-11-14 07:02] LABS: Hemoglobin A1C 7.2 % (<5.7)
[2019-11-14 07:18] LABS: Alanine Aminotransferase 17 U/L (4-50); Albumin Level 3.8 g/dL (3.5-5.1); Alkaline Phosphatase 154 U/L (38-126); Anion Gap 9 mmol/L (8-16); Aspartate Amino Transferase 25 U/L (17-59); Bilirubin,Total 0.4 mg/dL (0.2-1.3); Blood Urea Nitrogen 27 mg/dL (9-20); Calcium 8.9 mg/dL (8.4-10.2); Carbon Dioxide 22 mmol/L (22-30); Chloride 108 mmol/L (98-107); Estimated CRCL calculation 35 ml/min; Estimated Glomerular Filt Rate 23; Glucose 212 mg/dL (75-110); Magnesium 2.1 mg/dL (1.6-2.3); Potassium 4.2 mmol/L (3.4-5.0); Sodium 139 mmol/L (137-145)
--- NOTE | 2019-11-14 07:26 | P.PNAN_ITS ---
Anes - Eval Final PreProcedure Day of Procedure 11/14/19 07:26 Patient weight: obese Heart: regular rate and rhythm Lungs: clear to auscultation Airway: Mallampati scale class II Neurological: alert and oriented Last oral intake: >/= 8 hours ASA classification: III Emergent: yes Anesthetic plan: proceed Anesthesia type and monitoring: general ETT and standard monitoring Informed Consent: The patient's anesthetic plan and its attendant risks and b enefits were discussed with the patient/family/POA. Questions were solicited and answers provided to the satisfaction of the patient/family/POA.
--- NOTE | 2019-11-14 07:30 | PC.NURSE ---
To OR per [hospital bed ], IV [ Infusing 1750mg Vancomycin per doctor Sydney's orders.]. Report given to [ MACHINE CLOTH TRIMMER and Patient SBAR faxed to Preop].
[2019-11-14 07:41] LABS: Glucose Point of Care 217 (65-105)
[2019-11-14] MEDS: ceFAZolin 2 GM/D5W 50 ML 2 GM/50 ML BAG IVPB (08:00)
[2019-11-14 08:16] LABS: Vitamin D 25 Hydroxy 35.9 ng/mL
[2019-11-14] MEDS: ceFAZolin SODIUM 1 GM VIAL IV PUSH ×3 (08:30→09:00)
--- NOTE | 2019-11-14 09:10 | P.OP_ITS ---
Procedure Note - Detailed Date of procedure: 11/14/19 Pre-op diagnosis: left hip fracture Left intertrochanteric hip fracture Post-op diagnosis: same Procedure performed: open reduction internal fixation with Biomet PT and trochanteric nail device left intertrochanteric hip fracture Description of procedure: patient was brought to the operating room and general anesthesia was administered endotracheal tube. He received weight based vancomycin 2 g of Ancef and 1 g of tranexamic acid preoperatively. The lateral left hip and thigh were scrubbed with the chlorhexidine cloth. He was placed on the fracture table and longitudinal traction applied through a traction boot the right hip flexed abducted out of the way and this gave us near anatomic alignment. The left hip and lateral thigh were prepped and draped usual fashion. A 1/2 inch longitudinal incision was made proximal to the greater trochanter and a guide josue inserted through the fascia into the tip of the greater trochanter in the proper position confirmed on biplanar fluoroscopy. A starter hole was made and the long guide josue inserted and the canal reamed to 13 mm which gave us a fair amount of chatter. The proximal femur was reamed to 16 mm in the trochanteric region. A 22 cm x 11 mm Biomet PTN trochanteric nail was chosen and inserted under manual pressure. A guide pin was inserted into the center of the femoral head on the AP and lateral views. Anatomic reduction was maintained. This was reamed in a 105 mm telescoping lag screw was inserted and the sleeve impacted flush the lateral cortex and tightened with the torque limit ing and aluminum shingle roofer handle. Because of the posterior trochanteric comminution, a distal interlocking screw was placed in the static mode. The wounds were irrigated with antibiotic solution. Third g of Ancef given at time of wound closure. Fascia was closed with 0 Vicryl skin with 2 subcutaneous Vicryl and glue EBL was 50 cc. There were no complications and anesthesia reported that he tolerated the surgery well. Implants: Biomet PTN nail Anesthesia: YAKELINA Surgeon: Kd Grimes MD [employer] Supervisor: Brenda Vega Estimated blood loss (mL): 50 Drains: No Packing: No Pathology: none sent Complications: No immediate complications Condition: stable Disposition: PACU
[2019-11-14] MEDS: LACTATED RINGERS 1,000 ML 30 ML IV CONT ×2 (09:35)
[2019-11-14 10:08] LABS: Glucose Point of Care 203 (65-105)
--- NOTE | 2019-11-14 10:35 | SUR.PHASEI ---
LEGS ELEVATED ON PILLOW; ICE PACK TO LEFT HIP.
[2019-11-14] MEDS: amLODIPine BESYLATE 5 MG TABLET 10 MG PO (11:52)
[2019-11-14] MEDS: PANTOPRAZOLE 40 MG TABLET PO (11:52)
[2019-11-14] MEDS: ROSUVASTATIN 10 MG TABLET 20 MG PO (11:52)
[2019-11-14] MEDS: FINASTERIDE 5 MG TABLET PO (11:53)
[2019-11-14] MEDS: LORATADINE 10 MG TABLET PO (11:53)
[2019-11-14] MEDS: DULoxetine HCL 60 MG CAPSULE.DR PO (11:53)
[2019-11-14] MEDS: METOPROLOL SUCCINATE EXT REL 100 MG TABCR PO (11:53)
[2019-11-14 12:12] LABS: Glucose Point of Care 220 (65-105)
[2019-11-14] MEDS: INSULIN ASPART (*BKC) 100 UNITS/ML SUB-Q (12:50)
--- NOTE | 2019-11-14 14:28 | PM.IMPN ---
Progress Note: A&P Assessment and Plan (1) Closed fracture of left hip: Qualifiers: Encounter type: initial encounter Qualified Code(s): S72.002A - Fracture of unspecified part of neck of left femur, initial encounter for closed fracture Code(s): S72.002A - Fracture of unspecified part of neck of left femur, initial encounter for closed fracture Status: Acute Assessment and Plan: Dr. Grimes has been consulted and appreciate recommendations. POD 0 ORIF with Biomet PT and trochanteric nail device left intertrochanteric hip fracture. TOlerated procedure well per EMR. No complaints at the moment Post op care, pain management, PT/OT, DVT ppx per Dr. Grimes Continue Carmen catheter CC following and possibly working on placement for disposition (2) Chronic kidney disease: Qualifiers: Chronic kidney disease stage: stage 1 Qualified Code(s): N18.1 - Chronic kidney disease, stage 1 Code(s): N18.9 - Chronic kidney disease, unspecified Status: Chronic Assessment and Plan: Cr 2.80. Appears to be at baseline. Follows Dr. Hairston as outpatient; he has been consulted per Ortho given complexity of case advocate renal function avoid nephrotoxic agents renally dose medications Appreciate Nephrology recommendations (3) Diabetes: Qualifiers: Diabetes mellitus type: type 2 Diabetes mellitus correction insulin use: with final inspector and tester use Diabetes mellitus complication status: with kidney complications Diabetes mellitus complication detail: with chronic kidney disease Chronic kidney disease stage: stage 4 (severe) Qualified Code(s): E11.22 - Type 2 diabetes mellitus with diabetic chronic kidney disease; N18.4 - Chronic kidney disease, stage 4 (severe); Z79.4 - superintendent operations division (current) use of insulin Code(s): E11.9 - Type 2 diabetes mellitus without complications Status: Chronic Assessment and Plan: BGL low 200s Accuchecks, SSI Coverage, hypoglycemic protocol, diabetic diet Consider resuming home insulin regimen (4) Hypertension: Qualifiers: Hypertension type: unspecified Qualified Code(s): I10 - Essential (primary) hypertension Code(s): I10 - Essential (primary) hypertension Status: Chronic Assessment and Plan: Stable but somewhat elevated today - BP 150s sys postoperatively. 130s sys prior to surgery Monitor blood pressure. Continue amlodipine and metoprolol. (5) Congestive heart failure: Qualifiers: Heart failure type: unspecified Heart failure chronicity: chronic Qualified Code(s): I50.9 - Heart failure, unspecified Code(s): I50.9 - Heart failure, unspecified Status: Chronic Assessment and Plan: Currently compensated. Monitor Is and Os, daily weights. continue home CHF medications. (6) Atrial fibrillation: Qualifiers: Atrial fibrillation type: unspecified Qualified Code(s): I48.91 - Unspecified atrial fibrillation Code(s): I48.91 - Unspecified atrial fibrillation Status: Chronic Assessment and Plan: Appears to be in sinus rhythm at time of visit; rate controlled Will defer resumption of Eliquis to Orthopedic surgery Continue beta rich. (7) COPD (chronic obstructive pulmonary disease): Qualifiers: COPD type: unspecified COPD Qualified Code(s): J44.9 - Chronic obstructive pulmonary disease, unspecified Code(s): J44.9 - Chronic obstructive pulmonary disease, unspecified Status: Chronic Assessment and Plan: No acute issues. Lung exam unremarkable Continue bronchodilators as needed. (8) Hypothyroidism: Qualifiers: Hypothyroidism type: u
[2019-11-14] MEDS: DOCUSATE SODIUM 100 MG CAPSULE PO (17:23)
[2019-11-14] MEDS: SENNA/DOCUSATE SODIUM TABLET 2 TAB PO (17:23)
[2019-11-14 17:57] LABS: Glucose Point of Care 173 (65-105)
[2019-11-14] MEDS: TAMSULOSIN HCL 0.4 MG CAPSULE PO (21:24)
[2019-11-14] MEDS: MELATONIN 3 MG TABLET PO (21:24)
[2019-11-14 23:27] LABS: Glucose Point of Care 180 (65-105)
[2019-11-15] VITALS (13 sets, daily range): BP systolic 107–143; BP diastolic 60–91; PULSE 63–119; RESP 18–20; TEMP 36.4–36.9; O2SAT 93–97; BMI 30.6
[2019-11-15] MEDS: ACETAMINOPHEN 325 MG TABLET 650 MG PO ×4 (00:53→18:19)
--- NOTE | 2019-11-15 05:30 | PC.NURSE ---
Walked in to patient's room to the capnography alarm going off. Asked patient to put the nasal cannula back on, and he began yelling at me, the RN, about him going home immediately. Refusing to put capnography back on, to wear the oxygen, or to take any more medicine. He claims that we are drugging him and not giving him his correct home medications. Patient cannot tell me where he is right now, and when I try to reorient him, he begins yelling more about needing to call his human resources talent manager and his girlfriend. RN requested for a second RN, Rehana to come in and witness the patient's outburst and to try to deescalate the situation. Allowed patient to call and leave his girlfriend a message, RN also left a message requesting that she call back to try and reorient the patient. Patient is refusing all medications at this time.
[2019-11-15] MEDS: LEVOTHYROXINE SODIUM 125 MCG TABLET PO (06:10)
[2019-11-15 06:32] LABS: Hematocrit 25.9 % (42.0-52.0); Hemoglobin 8.4 g/dL (14.0-18.0); Immature Granulocyte Absolute 0.04 K/mm3 (0.00-0.031); Immature Granulocyte Percent A 0.5 % (0-0.5); Immature Platelet Fraction Pct 3.7 % (0.9-11.2); Lymphocytes Absolute Auto 0.72 K/mm3 (0.9-3.2); Lymphocytes Percent Auto 8.2 % (18.3-44.2); Mean Corpuscular HGB Conc 32.4 g/dl (32-36); Mean Corpuscular Hemoglobin 28.8 pg (26-34); Mean Corpuscular Volume 88.7 fl (80-100); Mean Platelet Volume 10.9 fl (7.4-10.4); Monocytes Absolute Auto 0.5 K/mm3 (0.1-0.6); Monocytes Percent Auto 5.6 % (2.6-8.5); Neutrophils Absolute Auto 7.5 K/mm3 (1.3-6.7); Neutrophils Percent Auto 85.7 % (45.5-73.1); Platelet Count Result 110 k/mm3 (150-375); Red Blood Count 2.92 M/mm3 (4.6-6.20); White Blood Count 8.8 K/mm3 (4.5-10.0)
[2019-11-15 06:46] LABS: Anion Gap 7 mmol/L (8-16); Blood Urea Nitrogen 38 mg/dL (9-20); Calcium 8.5 mg/dL (8.4-10.2); Carbon Dioxide 23 mmol/L (22-30); Chloride 106 mmol/L (98-107); Estimated CRCL calculation 34 ml/min; Estimated Glomerular Filt Rate 22; Glucose 187 mg/dL (75-110); Potassium 4.4 mmol/L (3.4-5.0); Sodium 136 mmol/L (137-145)
--- NOTE | 2019-11-15 07:14 | WPDANESPN ---
Anes - Prog Note Post-Op Date/Time: 11/15/19 07:14 Cardiovascular status: normal Respiratory status: normal Airway patency: baseline Mental status: baseline Post-Op hydration status: normal Vital Signs: Last Vital Signs Temp 98.4 F 11/15/19 06:00 Pulse 82 11/15/19 06:00 Resp 20 11/15/19 06:00 BP 143/91 H 11/15/19 06:00 Pulse Ox 94 11/15/19 06:00 I/O: Intake & Output 11/14/19 11/14/19 11/15/19 15:59 23:59 07:59 Intake Total 490 370 150 Output Total 250 600 725 Balance 824 -768 -943 Laboratory Tests 11/15/19 06:05 11/15/19 06:05 11/14/19 11/14/19 11/14/19 05:59 05:59 07:36 WBC RBC Hgb Hct MCV MCH MCHC RDW Plt Count MPV Immature Gran % (Auto) Neut % (Auto) Lymph % (Auto) [place] % (Auto) Eos % (Auto) Baso % (Auto) Lymph # (Auto) [place] # (Auto) Eos # (Auto) Baso # (Auto) Abs Immat Gran (auto) Absolute Neuts (auto) Absolute Nucleated RBC Nucleated RBC % % Immature Plt Fraction Sodium 139 Potassium 4.2 Chloride 108 H Carbon Dioxide 22 Anion Gap 9 BUN 27 H D Creatinine 2.80 H Estim Creat Clear Calc 35 Estimated GFR 23 L Glucose 212 H POC Capillary Glucose 217 H Calcium 8.9 Magnesium 2.1 Total Bilirubin 0.4 AST 25 ALT 17 Alkaline Phosphatase 154 H Total Protein 7.0 Albumin 3.8 Vitamin D 25-Hydroxy 35.9 TSH (Reflex) 2.890 11/14/19 11/14/19 11/14/19 10:06 11:59 16:36 WBC RBC Hgb Hct MCV MCH MCHC RDW Plt Count MPV Immature Gran % (Auto) Neut % (Auto) Lymph % (Auto) [place] % (Auto) Eos % (Auto) Baso % (Auto) Lymph # (Auto) [place] # (Auto) Eos # (Auto) Baso # (Auto) Abs Immat Gran (auto) Absolute Neuts (auto) Absolute Nucleated RBC Nucleated RBC % % Immature Plt Fraction Sodium Potassium Chloride Carbon Dioxide Anion Gap BUN Creatinine Estim Creat Clear Calc Estimated GFR Glucose POC Capillary Glucose 203 H 220 H 173 H Calcium Magnesium Total Bilirubin AST ALT Alkaline Phosphatase Total Protein Albumin Vitamin D 25-Hydroxy TSH (Reflex) 11/14/19 11/15/19 11/15/19 21:23 06:05 06:05 WBC 8.8 RBC 2.92 L Hgb 8.4 L Hct 25.9 L MCV 88.7 MCH 28.8 MCHC 32.4 RDW 15.0 H Plt Count 110 L MPV 10.9 H Immature Gran % (Auto) 0.5 Neut % (Auto) 85.7 H Lymph % (Auto) 8.2 L Canyon % (Auto) 5.6 Eos % (Auto) 0.0 Baso % (Auto) 0.0 L Lymph # (Auto) 0.72 L [place] # (Auto) 0.5 Eos # (Auto) 0.0 Baso # (Auto) 0.0 Abs Immat Gran (auto) 0.04 H Absolute Neuts (auto) 7.5 H Absolute Nucleated RBC 0.0 Nucleated RBC % 0.0 % Immature Plt Fraction 3.7 Sodium 136 L Potassium 4.4 Chloride 106 Carbon Dioxide 23 Anion Gap 7 L BUN 38 H D Creatinine 2.90 H Estim Creat Clear Calc 34 Estimated GFR 22 L Glucose 187 H POC Capillary Glucose 180 H Calcium 8.5 Magnesium 2.0 Total Bilirubin AST ALT Alkaline Phosphatase Total Protein Albumin Vitamin D 25-Hydroxy TSH (Reflex) Post-procedural complaints: none Patient Feedback: Patient satisfied with anesthetic care.
--- NOTE | 2019-11-15 08:42 | PM.PNNEP ---
Progress Note: A&P Assessment and Plan (1) CKD stage 4 due to type 1 diabetes mellitus: Code(s): E10.22 - Type 1 diabetes mellitus with diabetic chronic kidney disease; N18.4 - Chronic kidney disease, stage 4 (severe) Status: Acute Assessment and Plan: the patient has chronic kidney disease. This is from his diabetes hypertension and probably vascular disease. his baseline GFR is around 20 his creatinine looks stable postop. Patient is a it a bit higher risk for surgery however he is at his baseline risk and we cannot reduce it by waiting. So it is okay to proceed with surgery from the kidney standpoint. (2) Hypertension: Qualifiers: Hypertension type: unspecified Qualified Code(s): I10 - Essential (primary) hypertension Code(s): I10 - Essential (primary) hypertension Status: Chronic Assessment and Plan: his blood pressure is pretty well controlled. Systolic is running between 130 and 151 he is on metoprolol and amlodipine. (3) Diabetes: Qualifiers: Diabetes mellitus type: type 2 Diabetes mellitus alf insulin use: with alf use Diabetes mellitus complication status: with kidney complications Diabetes mellitus complication detail: with chronic kidney disease Chronic kidney disease stage: stage 4 (severe) Qualified Code(s): E11.22 - Type 2 diabetes mellitus with diabetic chronic kidney disease; N18.4 - Chronic kidney disease, stage 4 (severe); Z79.4 - terminal gauger (current) use of insulin Code(s): E11.9 - Type 2 diabetes mellitus without complications Status: Chronic Assessment and Plan: On Accu-Cheks and sliding-scale insulin (4) Congestive heart failure: Qualifiers: Heart failure type: unspecified Heart failure chronicity: chronic Qualified Code(s): I50.9 - Heart failure, unspecified Code(s): I50.9 - Heart failure, unspecified Status: Chronic Assessment and Plan: Volume status looks stable. (5) Atrial fibrillation: Qualifiers: Atrial fibrillation type: unspecified Qualified Code(s): I48.91 - Unspecified atrial fibrillation Code(s): I48.91 - Unspecified atrial fibrillation Status: Chronic Assessment and Plan: He is on Eliquis. Heart rate is well controlled. He is currently in sinus rhythm (6) COPD (chronic obstructive pulmonary disease): Qualifiers: COPD type: unspecified COPD Qualified Code(s): J44.9 - Chronic obstructive pulmonary disease, unspecified Code(s): J44.9 - Chronic obstructive pulmonary disease, unspecified Status: Chronic Assessment and Plan: He continues to smoke. hopefully he will quit. Subjective Date/time seen: 11/15/19 08:42 Interval history: Patient is alert. No chest pain or shortness of breath He was uncomfortable overnight. Getting pain medicine. Review of Systems Cardiovascular: Cardiovascular: Reports no additional cardiovascular complaints Respiratory: Respiratory: Reports no additional respiratory complaints Gastrointestinal: Gastrointestinal: Reports no additional gastrointestinal complaints Genitourinary: Genitourinary: Reports no additional male genitourinary complaints Exam Narrative: Exam Narrative: WDWN in NAD skin no rash head ncat lungs clear cor reg no rub abd BS+ nontender and soft ext no edema. Objective Data Vital Signs Vital Signs: Vital Signs - 24 hr 11/14/19 09:35 11/14/19 09:50 11/14/19 10:05 Temperature 36.3 C L Pulse Rate 71 63 63 Respiratory Rate 17 13 12 Blood Pressure 153/81 H 140/81 145/103 H Pulse Oximetry 93 93 93 11/14/19 10:20 11/14/19 10:32 11/14/19 10:45 Temperature Pulse Rate 63 63 64 Respiratory Rate 12 15 13 Blood Pressure 110/97 H 155/80 H 150/79 H Pulse Oximetry 97 96 93 11/14/19 11:00 11/14/19 11:20 11/14/19 11:35 Temperature 36.9 C 36.5 C Pulse Rate 65 68 69 Respiratory Rate 12 20
[2019-11-15] MEDS: PANTOPRAZOLE 40 MG TABLET PO (09:07)
[2019-11-15] MEDS: ROSUVASTATIN 10 MG TABLET 20 MG PO (09:07)
[2019-11-15] MEDS: polyethylene glycoL 3350 17 GM POWD.PACK PO (09:07)
[2019-11-15] MEDS: METOPROLOL SUCCINATE EXT REL 100 MG TABCR PO (09:08)
[2019-11-15] MEDS: DULoxetine HCL 60 MG CAPSULE.DR PO (09:09)
[2019-11-15] MEDS: DOCUSATE SODIUM 100 MG CAPSULE PO ×2 (09:09→18:18)
[2019-11-15] MEDS: FINASTERIDE 5 MG TABLET PO (09:09)
[2019-11-15] MEDS: LORATADINE 10 MG TABLET PO (09:09)
[2019-11-15] MEDS: amLODIPine BESYLATE 5 MG TABLET 10 MG PO (09:10)
[2019-11-15] MEDS: APIXABAN 2.5 MG TABLET PO ×2 (09:10→21:19)
--- NOTE | 2019-11-15 09:29 | WPDCDIQUERY2 ---
CDI Query Clarification Request - 11/11 H&H 9.7/30.1 11/14 H&H 8.4/.9 Please clarify if there is any clinical significance/ diagnosis for above findings.
--- NOTE | 2019-11-15 09:36 | PM.PNCARD ---
Progress Note: A&P Assessment and Plan (1) Atrial fibrillation: Qualifiers: Atrial fibrillation type: unspecified Qualified Code(s): I48.91 - Unspecified atrial fibrillation Code(s): I48.91 - Unspecified atrial fibrillation Status: Chronic Assessment and Plan: Paroxysmal. Maintaining sinus rhythm. Continue Metoprolol succinate. Resume apixaban 5 mg q.12 hours when safe to do so from a surgical standpoint. The criteria for decreasing apixaban from 5 mg to 2.5 mg is 2 of the 3, renal function greater than 1.5, age greater than 80 and weight less than 60 Kg. He does not meet the age or weight criteria. (2) CAD (coronary artery disease) of artery bypass graft: Code(s): I25.810 - Atherosclerosis of coronary artery bypass graft(s) without angina pectoris Status: Acute Assessment and Plan: PRESTON To LAD 2018. Valvular heart disease with bioprosthetic AVR and mitral valve repair 2019. Denied chest discomfort or shortness of breath. Vital signs are stable . Continue clopidogrel, Metoprolol succinate, rosuvastatin and amlodipine. Additional Plan No further cardiac recommendations. Cardiology will sign off. He has an appointment to see Dr Hunter on February 28, 2020 at 3:15 p.m.. Plan discussed with Dr. Hendricks 0950 11/15/2019 Subjective Date/time seen: 11/15/19 09:36 Interval history: Follow-up for: Coronary artery disease status post CABG, aortic valve replacement, hypertension, paroxysmal atrial fibrillation, long-term use of anticoagulation Date of service: 11/15/2019 Subjective: Having a lot of pain in the hip. Denied any chest discomfort, shortness of breath or lightheadedness. Review of Systems Constitutional: Constitutional: Reports fatigue Eyes: Eyes: Denies blurry vision ENT: Reports Normal hearing present Cardiovascular: Cardiovascular: Denies chest pain, Denies pedal edema, Denies leg edema, Denies lightheadedness and Denies dyspnea Respiratory: Respiratory: Denies dyspnea Gastrointestinal: Gastrointestinal: Reports nausea Genitourinary: Genitourinary: Denies hematuria Musculoskeletal: Musculoskeletal: Reports other ( Hip pain) Integumentary/Breasts: Skin/Breast: Denies erythema and Denies rash Neurologic: Reports Normal hearing present and Denies dizziness Psychiatric: Psychiatric: Denies anxiety and Denies depression Endocrine: Endocrine: Reports fatigue Hematologic/Lymphatic: Hematologic/Lymphatic: Denies easy bleeding Allergic/Immunologic: Allergic/Immunologic: Denies throat swelling and Denies wheezing Exam Const: General: uncomfortable Other: Up in chair. Significant pain from hip fracture. HENMT: Mouth: Yes moist mucous membranes Eyes: Sclera: sclerae normal Pupils: Equal, round and reactive pupils present Neck: Neck: supple Resp: Effort & Inspection: normal respiratory effort Auscultation: clear to auscultation bilaterally Cardio: Rate: regular rate Rhythm: regular rhythm Other: Very soft systolic crescendo decrescendo murmur at the base no diastolic murmur no gallop GI: Auscultation: normal bowel sounds Skin: General skin exam: normal color Neuro: General: patient oriented x3 Cranial nerves: Yes Equal, round and reactive pupils present Cognition (Neuro): normal cognition Other: Extrem: General: capillary refill normal and no clubbing, cyanosis or edema Psych: Appearance: grossly normal Mental Status: mental status grossly normal Speech and movement: Normal speech and movement present Affect: normal affect Attitude: cooperative Thought process: Normal thought process present Thought content: Yes Normal thought content present Objective Data Vital Signs Vital Signs: Vital Signs - 24 hr 11/14/19 09:50 11/14/19 10:05 11/14/19 10:20 Temperature Pulse Rate 63 63 63 Respiratory Rate 13 12 12 Blood Pres
[2019-11-15 09:45] LABS: Glucose Point of Care 188 (65-105)
[2019-11-15] MEDS: SENNA/DOCUSATE SODIUM TABLET 2 TAB PO ×2 (10:27→18:18)
[2019-11-15] MEDS: CLOPIDOGREL BISULFATE 75 MG TABLET PO (10:27)
--- NOTE | 2019-11-15 11:49 | PM.PNORT ---
Progress Note: A&P Additional Plan POD 1 alert avss hgb-8.7. wds-dry wiggles toes, mild thigh swelling, pt is confused- was here this am, spoke with her, pt is overall calm, needing max assist with 2 people today. Pt will need rehab facility-psych social worker taqking care of. Pts concerned because of his confusion and going to rehab-at this point it is not safe to send home due to needing max assist. She is agreeable to send to rehab. Will recheck HGB is am-pt may need blood if cont. to trend down <MILLIE Sargent - Last Filed: 11/15/19 11:53> Subjective Subjective Date/Time Seen: 11/15/19 11:49 <MILLIE Sargent - Last Filed: 11/15/19 11:53> Objective Data Vital Signs Vital Signs: Vital Signs - 24 hr 11/14/19 11:53 11/14/19 12:00 11/14/19 14:00 Temperature 36.3 C L Pulse Rate 67 67 69 Respiratory Rate 20 Blood Pressure 136/70 Pulse Oximetry 95 11/14/19 16:00 11/14/19 18:00 11/14/19 19:54 Temperature 36.4 C L Pulse Rate 71 69 78 Respiratory Rate 20 16 Blood Pressure 130/70 Pulse Oximetry 98 96 11/14/19 20:00 11/14/19 21:10 11/14/19 22:00 Temperature 36.9 C Pulse Rate 81 81 Respiratory Rate 20 Blood Pressure 144/82 H Pulse Oximetry 95 93 11/14/19 22:30 11/15/19 00:00 11/15/19 01:21 Temperature Pulse Rate 72 76 Respiratory Rate 19 Blood Pressure Pulse Oximetry 95 94 11/15/19 04:00 11/15/19 05:46 11/15/19 06:00 Temperature 36.9 C Pulse Rate 73 82 Respiratory Rate 20 Blood Pressure 143/91 H Pulse Oximetry 94 94 11/15/19 08:00 11/15/19 09:08 Temperature Pulse Rate 73 78 Respiratory Rate Blood Pressure Pulse Oximetry <MILLIE Sargent - Last Filed: 11/15/19 11:53> Intake/Output Intake/Output: Intake & Output 11/12/19 11/13/19 11/14/1911/14/20 23:59 23:59 23:59 23:59 Intake Total 1100 1090 1410 200 Output Total 7573 2811 631 Balance 1100 -1710 -815 -525 <MILLIE Sargent - Last Filed: 11/15/19 11:53> Meds/Results Medications: Active Medications Generic Name Dose Route Start Last Admin Trade Name Freq PRN Reason Stop Dose Admin Acetaminophen 650 mg 11/13/19 12:00 11/15/19 06:10 Tylenol Tablet PO 650 mg Q6H BEN Administration Albuterol 2 puff 11/13/19 07:42 Proventil Hfa INHALATION QIDRT PRN Shortness Of Breath Amlodipine Besylate 10 mg 11/13/19 09:00 11/15/19 09:10 Norvasc PO 10 mg DAILY BEN Administration Apixaban 2.5 mg 11/15/19 09:00 11/15/19 09:10 Eliquis PO 2.5 mg Q12HR BEN Administration Clopidogrel Bisulfate 75 mg 11/15/19 09:00 11/15/19 10:27 Plavix PO 75 mg DAILY BEN Administration Dextrose 12.5 gm 11/12/19 22:47 Dextrose 50% Syringe IV PUSH PRN PRN Hypoglycemia Protocol Docusate Sodium 100 mg 11/14/19 17:00 11/15/19 09:09 Colace Capsule PO 100 mg BID BEN Administration Duloxetine HCl 60 mg 11/13/19 09:00 11/15/19 09:09 Cymbalta PO 60 mg DAILY BEN Administration Finasteride 5 mg 11/13/19 09:00 11/15/19 09:09 Proscar PO 5 mg DAILY BEN Administration Glucagon 1 mg 11/12/19 22:47 Glucagon For Inj IM PRN PRN Hypoglycemia Protocol Glucose 15 gm 11/12/19 22:47 Glutose 15 PO PRN PRN Hypoglycemia Protocol Hydromorphone HCl 0.5 mg 11/13/19 08:09 11/13/19 23:45 Dilaudid Inj IV PUSH 0.5 mg Q3H PRN Administration Breakthrough Pain Insulin Aspart 3 - 6 units 11/13/19 08:00 11/15/19 09:04 Novolog SUB-Q Not Given TIDWM BEN Protocol Levothyroxine Sodium 125 mcg 11/13/19 06:30 11/15/19 06:10 Synthroid PO 125 mcg DAILY@0630 BEN Administration Loratadine 10 mg 11/13/19 09:00 11/15/19 09:09 Claritin PO 10 mg DAILY BEN Administration Magnesium Hydroxide 30 ml 11/14/19 11:11 Milk Of Magnesia PO BID PRN Constipation Melatonin 3 mg 11/14/19 2
[2019-11-15 12:56] LABS: Glucose Point of Care 167 (65-105)
--- NOTE | 2019-11-15 13:34 | P.PNIM_ITS ---
Progress Note: A&P Assessment and Plan (1) Closed fracture of left hip: Qualifiers: Encounter type: initial encounter Qualified Code(s): S72.002A - Fracture of unspecified part of neck of left femur, initial encounter for closed fracture Code(s): S72.002A - Fracture of unspecified part of neck of left femur, initial encounter for closed fracture Status: Acute Assessment and Plan: Dr. Grimes has been consulted and appreciate recommendations. POD 1 ORIF with [employer] PT and trochanteric nail device left intertrochanteric hip fracture. Tolerated procedure well per EMR. No complaints at the moment * Post op care, pain management, PT/OT, DVT ppx per Dr. Grimes * Carmen catheter management per ortho * CC following and possibly working on placement for disposition (2) Chronic kidney disease: Qualifiers: Chronic kidney disease stage: stage 1 Qualified Code(s): N18.1 - Chronic kidney disease, stage 1 Code(s): N18.9 - Chronic kidney disease, unspecified Status: Chronic Assessment and Plan: Cr 2.90. Appears to be at baseline. Follows Dr. Hairston as outpatient; he has been consulted per Ortho given complexity of case * Monitor renal function * avoid nephrotoxic agents * renally dose medications * Appreciate Nephrology recommendations (3) Diabetes: Qualifiers: Diabetes mellitus type: type 2 Diabetes mellitus skilled nursing insulin use: with skilled nursing use Diabetes mellitus complication status: with kidney com plications Diabetes mellitus complication detail: with chronic kidney disease Chronic kidney disease stage: stage 4 (severe) Qualified Code(s): E11.22 - Type 2 diabetes mellitus with diabetic chronic kidney disease; N18.4 - Chronic kidney disease, stage 4 (severe); Z79.4 - terminal clerk (current) use of insulin Code(s): E11.9 - Type 2 diabetes mellitus without complications Status: Chronic Assessment and Plan: BGL 100s * Accuchecks, SSI Coverage, hypoglycemic protocol, diabetic diet * Consider resuming home insulin regimen (4) Hypertension: Qualifiers: Hypertension type: unspecified Qualified Code(s): I10 - Essential ( primary) hypertension Code(s): I10 - Essential (primary) hypertension Status: Chronic Assessment and Plan: 140s sys today * Monitor blood pressure. * Continue amlodipine and metoprolol. (5) Congestive heart failure: Qualifiers: Heart failure type: unspecified Heart failure chronicity: chronic Qualified Code(s): I50.9 - Heart failure, unspecified Code(s): I50.9 - Heart failure, unspecified Status: Chronic Assessment and Plan: Currently compensated. * Monitor Is and Os, daily weights. * continue home CHF medications. (6) Atrial fibrillation: Qualifiers: Atrial fibrillation type: unspecified Qualified Code(s): I48.91 - Unspecified atrial fibrillation Code(s): I48.91 - Unspecified atrial fibrillation Status: Chronic Assessment and Plan: Appears to be in sinus rhythm at time of visit; rate controlled * Eliquis resumed per Orthopedic surgery * Continue beta rich. (7) COPD (chronic obstructive pulmonary disease): Qualifiers: COPD type: unspecified COPD Qualified Code(s): J44.9 - Chronic obstructive pulmonary disease, unspecified Code(s): J44.9 - Chronic
--- NOTE | 2019-11-15 13:34 | PM.IMPN ---
Progress Note: A&P Assessment and Plan (1) Closed fracture of left hip: Qualifiers: Encounter type: initial encounter Qualified Code(s): S72.002A - Fracture of unspecified part of neck of left femur, initial encounter for closed fracture Code(s): S72.002A - Fracture of unspecified part of neck of left femur, initial encounter for closed fracture Status: Acute Assessment and Plan: Dr. Grimes has been consulted and appreciate recommendations. POD 1 ORIF with [employer] PT and trochanteric nail device left intertrochanteric hip fracture. Tolerated procedure well per EMR. No complaints at the moment Post op care, pain management, PT/OT, DVT ppx per Dr. Grimes Carmen catheter management per ortho CC following and possibly working on placement for disposition (2) Chronic kidney disease: Qualifiers: Chronic kidney disease stage: stage 1 Qualified Code(s): N18.1 - Chronic kidney disease, stage 1 Code(s): N18.9 - Chronic kidney disease, unspecified Status: Chronic Assessment and Plan: Cr 2.90. Appears to be at baseline. Follows Dr. Hairston as outpatient; he has been consulted per Ortho given complexity of spring encaser renal function avoid nephrotoxic agents renally dose medications Appreciate Nephrology recommendations (3) Diabetes: Qualifiers: Diabetes mellitus type: type 2 Diabetes mellitus retirement insulin use: with retirement use Diabetes mellitus complication status: with kidney complications Diabetes mellitus complication detail: with chronic kidney disease Chronic kidney disease stage: stage 4 (severe) Qualified Code(s): E11.22 - Type 2 diabetes mellitus with diabetic chronic kidney disease; N18.4 - Chronic kidney disease, stage 4 (severe); Z79.4 - half-way (current) use of insulin Code(s): E11.9 - Type 2 diabetes mellitus without complications Status: Chronic Assessment and Plan: BGL 100s Accuchecks, SSI Coverage, hypoglycemic protocol, diabetic diet Consider resuming home insulin regimen (4) Hypertension: Qualifiers: Hypertension type: unspecified Qualified Code(s): I10 - Essential (primary) hypertension Code(s): I10 - Essential (primary) hypertension Status: Chronic Assessment and Plan: 140s sys today Monitor blood pressure. Continue amlodipine and metoprolol. (5) Congestive heart failure: Qualifiers: Heart failure type: unspecified Heart failure chronicity: chronic Qualified Code(s): I50.9 - Heart failure, unspecified Code(s): I50.9 - Heart failure, unspecified Status: Chronic Assessment and Plan: Currently compensated. Monitor Is and Os, daily weights. continue home CHF medications. (6) Atrial fibrillation: Qualifiers: Atrial fibrillation type: unspecified Qualified Code(s): I48.91 - Unspecified atrial fibrillation Code(s): I48.91 - Unspecified atrial fibrillation Status: Chronic Assessment and Plan: Appears to be in sinus rhythm at time of visit; rate controlled Eliquis resumed per Orthopedic surgery Continue beta rich. (7) COPD (chronic obstructive pulmonary disease): Qualifiers: COPD type: unspecified COPD Qualified Code(s): J44.9 - Chronic obstructive pulmonary disease, unspecified Code(s): J44.9 - Chronic obstructive pulmonary disease, unspecified Status: Chronic Assessment and Plan: No acute issues. Lung exam unremarkable Continue bronchodilators as needed. (8) Hypothyroidism: Qualifiers: Hypothyroidism type: unspecified Qualified Code(s): E03.9 - Hypothyroidism, unspecified Code(s): E03
[2019-11-15 18:29] LABS: Glucose Point of Care 193 (65-105)
[2019-11-15] MEDS: TAMSULOSIN HCL 0.4 MG CAPSULE PO (21:19)
[2019-11-15] MEDS: MELATONIN 3 MG TABLET PO (21:19)
[2019-11-15 22:24] LABS: Glucose Point of Care 220 (65-105)
[2019-11-16] VITALS (10 sets, daily range): BP systolic 128–140; BP diastolic 63–71; PULSE 60–71; RESP 16–18; TEMP 36.2–36.6; O2SAT 94–100; BMI 10.0
[2019-11-16] MEDS: ACETAMINOPHEN 325 MG TABLET 650 MG PO ×4 (00:38→17:20)
[2019-11-16] MEDS: LEVOTHYROXINE SODIUM 125 MCG TABLET PO (06:16)
[2019-11-16 06:40] LABS: Hematocrit 24.9 % (42.0-52.0); Immature Platelet Fraction Pct 4.4 % (0.9-11.2); Mean Corpuscular HGB Conc 32.1 g/dl (32-36); Mean Corpuscular Hemoglobin 28.7 pg (26-34); Mean Corpuscular Volume 89.2 fl (80-100); Mean Platelet Volume 11.3 fl (7.4-10.4); Platelet Count Result 115 k/mm3 (150-375); Red Blood Count 2.79 M/mm3 (4.6-6.20); Red Cell Distribution Width 15.1 % (11.5-14.5); White Blood Count 7.7 K/mm3 (4.5-10.0)
[2019-11-16 06:56] LABS: Albumin Level 3.5 g/dL (3.5-5.1); Anion Gap 8 mmol/L (8-16); Blood Urea Nitrogen 44 mg/dL (9-20); Calcium 8.5 mg/dL (8.4-10.2); Carbon Dioxide 23 mmol/L (22-30); Chloride 105 mmol/L (98-107); Estimated CRCL calculation 31 ml/min; Estimated Glomerular Filt Rate 20; Glucose 154 mg/dL (75-110); Magnesium 2.3 mg/dL (1.6-2.3); Phosphorus 4.6 mg/dL (2.5-4.5); Potassium 3.8 mmol/L (3.4-5.0); Sodium 136 mmol/L (137-145)
--- NOTE | 2019-11-16 08:38 | PM.PNNEP ---
Progress Note: A&P Assessment and Plan (1) CKD stage 4 due to type 1 diabetes mellitus: Code(s): E10.22 - Type 1 diabetes mellitus with diabetic chronic kidney disease; N18.4 - Chronic kidney disease, stage 4 (severe) Status: Acute Assessment and Plan: the patient has chronic kidney disease. This is from his diabetes hypertension and probably vascular disease. his baseline GFR is around 20 kidney function is stable. (2) Hypertension: Qualifiers: Hypertension type: unspecified Qualified Code(s): I10 - Essential (primary) hypertension Code(s): I10 - Essential (primary) hypertension Status: Chronic Assessment and Plan: his blood pressure is doing well. Systolic is running between 130 and 151 he is on metoprolol and amlodipine. (3) Diabetes: Qualifiers: Diabetes mellitus type: type 2 Diabetes mellitus ferry terminal agent insulin use: with ferry terminal agent use Diabetes mellitus complication status: with kidney complications Diabetes mellitus complication detail: with chronic kidney disease Chronic kidney disease stage: stage 4 (severe) Qualified Code(s): E11.22 - Type 2 diabetes mellitus with diabetic chronic kidney disease; N18.4 - Chronic kidney disease, stage 4 (severe); Z79.4 - termination clerk (current) use of insulin Code(s): E11.9 - Type 2 diabetes mellitus without complications Status: Chronic Assessment and Plan: On Accu-Cheks and sliding-scale insulin (4) Congestive heart failure: Qualifiers: Heart failure type: unspecified Heart failure chronicity: chronic Qualified Code(s): I50.9 - Heart failure, unspecified Code(s): I50.9 - Heart failure, unspecified Status: Chronic Assessment and Plan: Volume status looks stable. Lungs are clear and no swelling (5) Atrial fibrillation: Qualifiers: Atrial fibrillation type: unspecified Qualified Code(s): I48.91 - Unspecified atrial fibrillation Code(s): I48.91 - Unspecified atrial fibrillation Status: Chronic Assessment and Plan: He is on Eliquis. Heart rate is well controlled. He is currently in sinus rhythm (6) COPD (chronic obstructive pulmonary disease): Qualifiers: COPD type: unspecified COPD Qualified Code(s): J44.9 - Chronic obstructive pulmonary disease, unspecified Code(s): J44.9 - Chronic obstructive pulmonary disease, unspecified Status: Chronic Assessment and Plan: He continues to smoke. hopefully he will quit. Subjective Date/time seen: 11/16/19 08:38 Interval history: Patient is alert. Postop day 2. Pain is better. Had physical therapy yesterday Review of Systems Cardiovascular: Cardiovascular: Reports no additional cardiovascular complaints Respiratory: Respiratory: Reports no additional respiratory complaints Gastrointestinal: Gastrointestinal: Reports no additional gastrointestinal complaints Genitourinary: Genitourinary: Reports no additional male genitourinary complaints Exam Narrative: Exam Narrative: WDWN in NAD skin no rash or subcu nodules head ncat lungs clear cor reg no rub or gallop abd BS+ nontender and soft ext no edema. Objective Data Vital Signs Vital Signs: Vital Signs - 24 hr 11/15/19 09:08 11/15/19 12:00 11/15/19 13:37 Temperature Pulse Rate 78 64 Respiratory Rate Blood Pressure Pulse Oximetry 93 11/15/19 14:00 11/15/19 16:00 11/15/19 20:00 Temperature 36.4 C L Pulse Rate 63 103 H 107 H Respiratory Rate 20 Blood Pressure 107/60 Pulse Oximetry 96 11/15/19 22:00 11/16/19 00:00 11/16/19 04:00 Temperature 36.7 C Pulse Rate 119 H 62 60 Respiratory Rate 18 Blood Pressure 129/85 Pulse Oximetry 97 11/16/19 05:51 Temperature 36.6 C Pulse Rate 63 Respiratory Rate 18 Blood Pressure 133/66 Pulse Oximetry 97 Intake/Output Intake/Output: Intake & Output 11/13/19 08
[2019-11-16] MEDS: CLOPIDOGREL BISULFATE 75 MG TABLET PO (09:00)
[2019-11-16] MEDS: APIXABAN 2.5 MG TABLET PO ×2 (09:00→20:54)
[2019-11-16] MEDS: amLODIPine BESYLATE 5 MG TABLET 10 MG PO (09:00)
[2019-11-16] MEDS: polyethylene glycoL 3350 17 GM POWD.PACK PO (09:00)
[2019-11-16] MEDS: DULoxetine HCL 60 MG CAPSULE.DR PO (09:01)
[2019-11-16] MEDS: LORATADINE 10 MG TABLET PO (09:01)
[2019-11-16] MEDS: FINASTERIDE 5 MG TABLET PO (09:01)
[2019-11-16] MEDS: SENNA/DOCUSATE SODIUM TABLET 2 TAB PO ×2 (09:01→17:19)
[2019-11-16] MEDS: DOCUSATE SODIUM 100 MG CAPSULE PO ×2 (09:01→17:20)
[2019-11-16] MEDS: METOPROLOL SUCCINATE EXT REL 100 MG TABCR PO (09:01)
[2019-11-16] MEDS: PANTOPRAZOLE 40 MG TABLET PO (09:06)
[2019-11-16] MEDS: ROSUVASTATIN 10 MG TABLET 20 MG PO (09:07)
[2019-11-16 09:45] LABS: Glucose Point of Care 159 (65-105)
--- NOTE | 2019-11-16 12:14 | PM.PNORT ---
Progress Note: A&P Additional Plan patient Postop day 2. Following open reduction internal fixation left intertrochanteric hip fracture. He is sitting on the chair. He requires max assist of 2 for transfers we did not qualify for the transitional rehab facility. Request has been made for acceptance in to [facility] and insurance authorization is pending. His delirium has subsided today. He is alert and oriented and he is comfortable at rest with the oxycodone 5 mg on Accu 4 hour basis. I talked to him about his home medication usage. He has listed on his home medications Colora [id number] daily as needed and morphine 30 mg p.o. b.i.d.. He actually has not been using the morphine 30 mg b.i.d.. He tried it but could not tolerate it so this is not being used. He takes the hydrocodone set home because of his back pain and usually but not always is taking 2 per day. He is having no pain sitting in the chair or in bed but he has severe pain with transfers and his pain is in the groin and the anteromedial thigh which is very typical for this type of fracture pre also has severe pain in the suprapatellar region of his left knee and over the medial joint line with slight movement. He is sitting in the chair the leg blocked in with the serous steady site could not try and extend the knee fully but he does have tenderness to parapatellar palpation and along the medial tibial plateau more the former the ladder and there is a palpable effusion in the knee [id number]. He has severe pain in this area when he tries to move his foot at all. I would recommend we obtain x-rays of his left knee and if they are negative for fracture I would recommend additional imaging studies to evaluate this for additional injury and the best test to be an MRI scan if he can tolerate that. He may have an inflammatory arthritis such as gout causing the symptoms. Septic arthritis in this setting would be extremely unlikely. It is posttraumatic and he has been on antibiotics recently. His home activity level was basically bed to chair at home walking the disc the difference. He has been very sedentary and very deconditioned since his heart surgery. We noted on day of admission that he has equinus contractures of both ankles and I suspect he has some stiffness in his knees as well in therapy is noted that he has a hard time relaxing and that his knee seems stiff. Some of this may be pain related and he may have a traumatic injury to left knee contributing to this of course. His laboratory studies show that his hemoglobin is only slightly down from yesterday at 8.0. His platelets have been stable 115,000 today. His creatinine is little bit higher today 3.2 creatinine clearance 31 GFR 20. We will check another CBC and BMP in the morning. I reviewed the cardiology note from yesterday. In addition to his Plavix they would like him to also be on full-strength Eliquis for his history of atrial fibrillation. He has not had atrial fibrillation to my knowledge during this hospitalization. His risk of bleeding into his hip wound and from the fracture is course Jason being on full-strength Eliquis particularly considering his borderline renal function but also considering that he is also on Plavix which significantly increases his risk of bleeding complications. I would recommend we wait a full 2 weeks before converting him to full strength Eliquis to minimize the risk of hematoma formation and hemorrhage at the hip which I think is very high in the setting. He is on the DVT prophylaxis dose 2.5 mg Eliquis twice daily and Plavix currently. He has not been showing signs of bleeding except for the slight downward drift of his hemoglobin which is expected. There is no drainage about his hip wounds and he has only mild swelling around the hip today. Subjective Subjective Date/Time Seen: 11/16/19 12:14 Objective Data Vital Signs Vital Signs: Vital Signs - 24 hr 11/15/19 13:37 11/15/19 14:00
--- NOTE | 2019-11-16 12:25 | PM.IMPN ---
Progress Note: A&P Assessment and Plan (1) Closed fracture of left hip: Qualifiers: Encounter type: initial encounter Qualified Code(s): S72.002A - Fracture of unspecified part of neck of left femur, initial encounter for closed fracture Code(s): S72.002A - Fracture of unspecified part of neck of left femur, initial encounter for closed fracture Status: Acute Assessment and Plan: Dr. Grimes has been consulted and appreciate recommendations. POD2 ORIF with [facility] PT and trochanteric nail device left intertrochanteric hip fracture. Tolerated procedure well per EMR. No having left knee pain; unsure if he injured this on fall Post op care, pain management, PT/OT, DVT ppx per Dr. Grimes Carmen catheter management per ortho CC following and working on possible placement for disposition (2) Chronic kidney disease: Qualifiers: Chronic kidney disease stage: stage 1 Qualified Code(s): N18.1 - Chronic kidney disease, stage 1 Code(s): N18.9 - Chronic kidney disease, unspecified Status: Chronic Assessment and Plan: Cr 3.20. Appears to be at baseline. Follows Dr. Hairston as outpatient; he has been consulted per Ortho given complexity of casework specialist renal function avoid nephrotoxic agents renally dose medications Appreciate Nephrology recommendations (3) Diabetes: Qualifiers: Diabetes mellitus type: type 2 Diabetes mellitus [facility] insulin use: with [facility] use Diabetes mellitus complication status: with kidney complications Diabetes mellitus complication detail: with chronic kidney disease Chronic kidney disease stage: stage 4 (severe) Qualified Code(s): E11.22 - Type 2 diabetes mellitus with diabetic chronic kidney disease; N18.4 - Chronic kidney disease, stage 4 (severe); 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 Continue amlodipine and metoprolol. (5) Congestive heart failure: Qualifiers: Heart failure type: unspecified Heart failure chronicity: chronic Qualified Code(s): I50.9 - Heart failure, unspecified Code(s): I50.9 - Heart failure, unspecified Status: Chronic Assessment and Plan: Currently compensated. Monitor Is and Os, daily weights. continue home CHF medications. (6) Atrial fibrillation: Qualifiers: Atrial fibrillation type: unspecified Qualified Code(s): I48.91 - Unspecified atrial fibrillation Code(s): I48.91 - Unspecified atrial fibrillation Status: Chronic Assessment and Plan: Appears to be in sinus rhythm at time of visit; rate controlled Eliquis resumed per Orthopedic surgery Continue beta rich. (7) COPD (chronic obstructive pulmonary disease): Qualifiers: COPD type: unspecified COPD Qualified Code(s): J44.9 - Chronic obstructive pulmonary disease, unspecified Code(s): J44.9 - Chronic obstructive pulmonary disease, unspecified Status: Chronic Assessment and Plan: No acute issues. Lung exam unremarkable Continue bronchodilators as needed. (8) Hypothyroidism: Qualifiers: Hypothyroidism type: unspecified Qualified Code(s): E03.9 - Hypothyroidism, u
[2019-11-16 12:50] LABS: Glucose Point of Care 152 (65-105)
[2019-11-16 17:29] LABS: Glucose Point of Care 152 (65-105)
[2019-11-16] MEDS: TAMSULOSIN HCL 0.4 MG CAPSULE PO (20:54)
[2019-11-16] MEDS: MELATONIN 3 MG TABLET PO (20:54)
[2019-11-16 22:52] LABS: Glucose Point of Care 152 (65-105)
[2019-11-17] VITALS (7 sets, daily range): BP systolic 117; BP diastolic 76; PULSE 55–108; RESP 20; TEMP 36.8; O2SAT 97
[2019-11-17] MEDS: ACETAMINOPHEN 325 MG TABLET 650 MG PO ×4 (00:17→17:59)
[2019-11-17] MEDS: LEVOTHYROXINE SODIUM 125 MCG TABLET PO (05:52)
[2019-11-17 06:13] LABS: Hematocrit 26.5 % (42.0-52.0); Hemoglobin 8.3 g/dL (14.0-18.0); Mean Corpuscular HGB Conc 31.3 g/dl (32-36); Mean Corpuscular Volume 89.5 fl (80-100); Platelet Count Result 132 k/mm3 (150-375); Red Blood Count 2.96 M/mm3 (4.6-6.20); White Blood Count 7.8 K/mm3 (4.5-10.0)
[2019-11-17 06:23] LABS: Albumin Level 3.8 g/dL (3.5-5.1); Anion Gap 9 mmol/L (8-16); Blood Urea Nitrogen 44 mg/dL (9-20); Calcium 8.4 mg/dL (8.4-10.2); Carbon Dioxide 22 mmol/L (22-30); Chloride 106 mmol/L (98-107); Estimated CRCL calculation 30 ml/min; Estimated Glomerular Filt Rate 19; Glucose 137 mg/dL (75-110); Magnesium 2.4 mg/dL (1.6-2.3); Phosphorus 4.1 mg/dL (2.5-4.5); Potassium 3.6 mmol/L (3.4-5.0); Sodium 137 mmol/L (137-145)
[2019-11-17] MEDS: amLODIPine BESYLATE 5 MG TABLET 10 MG PO (08:59)
[2019-11-17] MEDS: DULoxetine HCL 60 MG CAPSULE.DR PO (09:00)
[2019-11-17] MEDS: FINASTERIDE 5 MG TABLET PO (09:00)
[2019-11-17] MEDS: DOCUSATE SODIUM 100 MG CAPSULE PO ×2 (09:00→17:59)
[2019-11-17] MEDS: APIXABAN 2.5 MG TABLET PO ×2 (09:00→21:04)
[2019-11-17] MEDS: SENNA/DOCUSATE SODIUM TABLET 2 TAB PO ×2 (09:00→17:59)
[2019-11-17] MEDS: polyethylene glycoL 3350 17 GM POWD.PACK PO (09:01)
[2019-11-17] MEDS: ROSUVASTATIN 10 MG TABLET 20 MG PO (09:01)
[2019-11-17] MEDS: PANTOPRAZOLE 40 MG TABLET PO (09:01)
[2019-11-17] MEDS: METOPROLOL SUCCINATE EXT REL 100 MG TABCR PO (09:01)
[2019-11-17] MEDS: CLOPIDOGREL BISULFATE 75 MG TABLET PO (09:03)
[2019-11-17] MEDS: LORATADINE 10 MG TABLET PO (09:03)
[2019-11-17] MEDS: INSULIN ASPART (*BKC) 100 UNITS/ML SUB-Q (09:08)
[2019-11-17 09:33] LABS: Glucose Point of Care 339 (65-105)
[2019-11-17] MEDS: POTASSIUM CHLORIDE 20 MEQ TABLET PO (12:50)
[2019-11-17 12:59] LABS: Glucose Point of Care 125 (65-105)
--- NOTE | 2019-11-17 13:05 | PM.IMPN ---
Progress Note: A&P Assessment and Plan (1) Closed fracture of left hip: Qualifiers: Encounter type: initial encounter Qualified Code(s): S72.002A - Fracture of unspecified part of neck of left femur, initial encounter for closed fracture Code(s): S72.002A - Fracture of unspecified part of neck of left femur, initial encounter for closed fracture Status: Acute Assessment and Plan: Dr. Grimes has been consulted and appreciate recommendations. POD3 ORIF with [employer] PT and trochanteric nail device left intertrochanteric hip fracture. Tolerated procedure well per EMR. Lt knee pain has improved; unsure if he injured this on fall. No acute osseous abnormality of left knee on xray today; he is to have mri of knee per Dr. Grimes Post op care, pain management, PT/OT, DVT ppx per Dr. Grimes CC following and working on possible placement for disposition (2) Chronic kidney disease: Qualifiers: Chronic kidney disease stage: stage 1 Qualified Code(s): N18.1 - Chronic kidney disease, stage 1 Code(s): N18.9 - Chronic kidney disease, unspecified Status: Chronic Assessment and Plan: Cr 3.30; slightly trending up. Appears to be at baseline. Follows Dr. 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 Diabetes mellitus complication status: with kidney complications Diabetes mellitus complication detail: with chronic kidney disease Chronic kidney disease stage: stage 4 (severe) Qualified Code(s): E11.22 - Type 2 diabetes mellitus with diabetic chronic kidney disease; N18.4 - Chronic kidney disease, stage 4 (severe); Z79.4 - residential (current) use of insulin Code(s): E11.9 - Type 2 diabetes mellitus without complications Status: Chronic Assessment and Plan: BGL 300s this morning, but 100s this afternoon Accuchecks, SSI Coverage, hypoglycemic protocol, diabetic diet Consider resuming home insulin regimen (4) Hypertension: Qualifiers: Hypertension type: unspecified Qualified Code(s): I10 - Essential (primary) hypertension Code(s): I10 - Essential (primary) hypertension Status: Chronic Assessment and Plan: BP 140s sys today Monitor blood pressure. Continue amlodipine and metoprolol. (5) Congestive heart failure: Qualifiers: Heart failure type: unspecified Heart failure chronicity: chronic Qualified Code(s): I50.9 - Heart failure, unspecified Code(s): I50.9 - Heart failure, unspecified Status: Chronic Assessment and Plan: Currently compensated. Monitor Is and Os, daily weights. continue home CHF medications. (6) Atrial fibrillation: Qualifiers: Atrial fibrillation type: unspecified Qualified Code(s): I48.91 - Unspecified atrial fibrillation Code(s): I48.91 - Unspecified atrial fibrillation Status: Chronic Assessment and Plan: Appears to be in sinus rhythm at time of visit; rate controlled Eliquis resumed per Orthopedic surgery Continue beta rich. (7) COPD (chronic obstructive pulmonary disease): Qualifiers: COPD type: unspecified COPD Qualified Code(s): J44.9 - Chronic obstructive pulmonary disease, unspecified Code(s): J44.9 - Chronic obstructive pulmonary disease, unspecified Status: Chronic Assessment and Plan: No acute issues. Lung exam unremarkable Continue bronchodilators as needed.
[2019-11-17 18:09] LABS: Glucose Point of Care 131 (65-105)
--- NOTE | 2019-11-17 20:12 | PM.PNORT ---
Progress Note: A&P Additional Plan Patient had his MRI scan of the left knee today which showed no definite abnormality. Specifically there was no evidence of fracture ligament tear meniscus tear bone bruising and minimal trace effusion possibly physiologic. His knee is not bothering him now Wood a supine. I could not feel effusion. He does have hamstring tightness in his knee. He has been mostly bedbound and in the chair not doing much ambulating. He has an equinus contracture of his right ankle. On examination of the motor strength on the left, he has absence of dorsiflexion of the left ankle and toes. Tonight for the 1st time he told me that if he has a history of drop foot for many many years. 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 We noted he had weakness and dorsiflexion when we 1st saw him preoperatively but it that time he reported that he had too much pain to dorsiflex the foot. During rehab that would be helpful for him to have stretching of his gastrocsoleus muscles bilaterally so he does not developed too much of a flexion contracture and it will be helpful for them to work on range of motion of his knees. His hemoglobin is improved today up to 8.3. His not require transfusion. He has acute blood loss anemia superimposed on chronic anemia. His platelet count is also increased to 132,000. This is been below the normal range since his admission but is on the rise. His creatinine is a little bit higher today at 3.3 but within the same general range. His GFR is 19 which was the same as it was before his admission or into his . Creatinine clearance is 30. Cardiology wants him to be on the full-strength Eliquis when safe from surgical wound bleeding standpoint. I would feel comfortable increasing his Eliquis to 5 mg daily at 2 weeks postoperatively and will indicate this on the transfer form. I understand he is going to be transferred tomorrow. Over the next couple of weeks it would be prudent to check a weekly CBC. I will defer the decision of how often to check his renal function basic metabolic profile to the medical doctors. I would like to see him in my office in approximately 2 weeks with x-rays of the left hip. If he has any problems in meantime I advised him to call. Subjective Subjective Date/Time Seen: 11/17/19 20:12 Objective Data Vital Signs Vital Signs: Vital Signs - 24 hr 11/16/19 22:00 11/17/19 00:00 11/17/19 04:00 Temperature 36.6 C Pulse Rate 71 68 69 Respiratory Rate 16 Blood Pressure 140/63 Pulse Oximetry 100 11/17/19 09:01 11/17/19 12:00 11/17/19 16:00 Temperature Pulse Rate 68 64 66 Respiratory Rate Blood Pressure Pulse Oximetry Intake/Output Intake/Output: Intake & Output 11/14/19 11/15/19 11/16/19 11/17/19 23:59 23:59 23:59 23:59 Intake Total 1410 1650 1920 1570 Output Total 2225 725 1750 1350 Balance -815 925 170 220 Meds/Results Medications: Active Medications Generic Name Dose Route Start Last Admin Trade Name Freq PRN Reason Stop Dose Admin Acetaminophen 650 mg 11/13/19 12:00 11/17/19 17:59 Tylenol Tablet PO 650 mg Q6H BEN Administration Albuterol 2 puff 11/13/19 07:42 Proventil Hfa INHALATION QIDRT PRN Shortness Of Breath Amlodipine Besylate 10 mg 11/13/19 09:00 11/17/19 08:59 Norvasc PO 10 mg DAILY BEN Administration Apixaban 2.5 mg 11/15/19 09:00 11/17/19 09:00 Eliquis PO 2.5 mg Q12HR BEN Administration Clopidogrel Bisulfate 75 mg 11/15/19 09:00 11/17/19 09:03 Plavix PO 75 mg DAILY BEN Administration Dextrose 12.5 gm 11/12/19 22:47 Dextrose 50% Syringe IV PUSH PRN PRN Hypoglycemia Protocol Docusate Sodium 100 mg 11/14/19 17:00 11/17/19 17:59 Colace Capsule PO 100 mg BID BEN Administration Duloxe
[2019-11-17] MEDS: TAMSULOSIN HCL 0.4 MG CAPSULE PO (21:04)
[2019-11-17] MEDS: MELATONIN 3 MG TABLET PO (21:04)
[2019-11-17 21:14] LABS: Glucose Point of Care 161 (65-105)
[2019-11-18] VITALS (7 sets, daily range): BP systolic 128–142; BP diastolic 61–72; PULSE 63–84; RESP 18; TEMP 36.4–36.6; O2SAT 97–100
[2019-11-18] MEDS: ACETAMINOPHEN 325 MG TABLET 650 MG PO ×4 (01:02→17:27)
[2019-11-18] MEDS: LEVOTHYROXINE SODIUM 125 MCG TABLET PO (05:58)
[2019-11-18 06:35] LABS: Hematocrit 27.7 % (42.0-52.0); Hemoglobin 8.8 g/dL (14.0-18.0); Mean Corpuscular HGB Conc 31.8 g/dl (32-36); Mean Corpuscular Hemoglobin 28.6 pg (26-34); Mean Corpuscular Volume 89.9 fl (80-100); Mean Platelet Volume 10.5 fl (7.4-10.4); Platelet Count Result 147 k/mm3 (150-375); Red Blood Count 3.08 M/mm3 (4.6-6.20); White Blood Count 7.2 K/mm3 (4.5-10.0)
[2019-11-18 06:49] LABS: Albumin Level 3.9 g/dL (3.5-5.1); Anion Gap 10 mmol/L (8-16); Blood Urea Nitrogen 43 mg/dL (9-20); Calcium 8.9 mg/dL (8.4-10.2); Carbon Dioxide 22 mmol/L (22-30); Chloride 107 mmol/L (98-107); Estimated CRCL calculation 32 ml/min; Estimated Glomerular Filt Rate 21; Glucose 131 mg/dL (75-110); Magnesium 2.5 mg/dL (1.6-2.3); Phosphorus 4.2 mg/dL (2.5-4.5); Potassium 4.2 mmol/L (3.4-5.0); Sodium 139 mmol/L (137-145)
[2019-11-18 07:53] LABS: Folic Acid > 20.0 ng/mL (2.76->20); Iron 32 ug/dL (49-181)
[2019-11-18 07:59] LABS: Glucose Point of Care 128 (65-105)
[2019-11-18 08:03] LABS: Percent Iron Saturation 11 % (20-50)
--- NOTE | 2019-11-18 08:28 | PM.PNNEP ---
Progress Note: A&P Assessment and Plan (1) CKD stage 4 due to type 1 diabetes mellitus: Code(s): E10.22 - Type 1 diabetes mellitus with diabetic chronic kidney disease; N18.4 - Chronic kidney disease, stage 4 (severe) Status: Acute Assessment and Plan: the patient has chronic kidney disease. This is from his diabetes hypertension and probably vascular disease. his baseline GFR is around 20 kidney function has been stable. (2) Hypertension: Qualifiers: Hypertension type: unspecified Qualified Code(s): I10 - Essential (primary) hypertension Code(s): I10 - Essential (primary) hypertension Status: Chronic Assessment and Plan: his blood pressure is doing well. Systolic has settled down into the 110-130 range. he is on metoprolol and amlodipine. 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 Code(s): E11.9 - Type 2 diabetes mellitus without complications Status: Chronic Assessment and Plan: On Accu-Cheks and sliding-scale insulin (4) Congestive heart failure: Qualifiers: Heart failure type: unspecified Heart failure chronicity: chronic Qualified Code(s): I50.9 - Heart failure, unspecified Code(s): I50.9 - Heart failure, unspecified Status: Chronic Assessment and Plan: Volume status looks euvolemic Lungs are clear and no swelling (5) Atrial fibrillation: Qualifiers: Atrial fibrillation type: unspecified Qualified Code(s): I48.91 - Unspecified atrial fibrillation Code(s): I48.91 - Unspecified atrial fibrillation Status: Chronic Assessment and Plan: He is on Eliquis. Heart rate is well controlled. He is currently in sinus rhythm (6) COPD (chronic obstructive pulmonary disease): Qualifiers: COPD type: unspecified COPD Qualified Code(s): J44.9 - Chronic obstructive pulmonary disease, unspecified Code(s): J44.9 - Chronic obstructive pulmonary disease, unspecified Status: Chronic Assessment and Plan: He continues to smoke. hopefully he will continue to stay off cigarettes at home Subjective Date/time seen: 11/18/19 08:28 Interval history: Patient is alert. has been bearing 50% of his weight on the leg. Pain is doing better. Eager for discharge Review of Systems Cardiovascular: Cardiovascular: Reports no additional cardiovascular complaints Respiratory: Respiratory: Reports no additional respiratory complaints Gastrointestinal: Gastrointestinal: Reports no additional gastrointestinal complaints Genitourinary: Genitourinary: Reports no additional male genitourinary complaints Exam Narrative: Exam Narrative: WDWN in NAD skin no rash or subcu nodules head ncat lungs clear bilaterally cor reg no rub or gallop abd BS+ nontender and soft ext no edema or cyanosis. Objective Data Vital Signs Vital Signs: Vital Signs - 24 hr 11/17/19 09:01 11/17/19 12:00 11/17/19 16:00 Temperature Pulse Rate 68 64 66 Respiratory Rate Blood Pressure Pulse Oximetry 11/17/19 20:00 11/17/19 22:00 11/18/19 00:00 Temperature 36.8 C Pulse Rate 108 H 55 L 68 Respiratory Rate 20 Blood Pressure 117/76 Pulse Oximetry 97 11/18/19 04:00 11/18/19 05:51 Temperature 36.4 C Pulse Rate 66 63 Respiratory Rate 18 Blood Pressure 128/72 Pulse Oximetry 97 Intake/Output Intake/Output: Intake & Output 11/15/19 11/16/19 11/17/19 11/18/19 23:59 23:59 23:59
[2019-11-18] MEDS: CLOPIDOGREL BISULFATE 75 MG TABLET PO (09:24)
[2019-11-18] MEDS: polyethylene glycoL 3350 17 GM POWD.PACK PO (09:24)
[2019-11-18] MEDS: amLODIPine BESYLATE 5 MG TABLET 10 MG PO (09:25)
[2019-11-18] MEDS: SENNA/DOCUSATE SODIUM TABLET 2 TAB PO (09:25)
[2019-11-18] MEDS: LORATADINE 10 MG TABLET PO (09:25)
[2019-11-18] MEDS: ROSUVASTATIN 10 MG TABLET 20 MG PO (09:25)
[2019-11-18] MEDS: APIXABAN 2.5 MG TABLET PO (09:25)
[2019-11-18] MEDS: FINASTERIDE 5 MG TABLET PO (09:26)
[2019-11-18] MEDS: METOPROLOL SUCCINATE EXT REL 100 MG TABCR PO (09:26)
[2019-11-18] MEDS: PANTOPRAZOLE 40 MG TABLET PO (09:26)
[2019-11-18] MEDS: DOCUSATE SODIUM 100 MG CAPSULE PO ×2 (09:26→17:27)
[2019-11-18] MEDS: DULoxetine HCL 60 MG CAPSULE.DR PO (09:27)
[2019-11-18 11:49] LABS: Glucose Point of Care 134 (65-105)
--- NOTE | 2019-11-18 13:13 | PM.DS ---
DS: Admitting Diagnosis Admitting Diagnosis Admitting Diagnosis: left hip fracture DS: Discharge Diagnosis Discharge Diagnosis (1) Closed fracture of left hip: Qualifiers: Encounter type: initial encounter Qualified Code(s): S72.002A - Fracture of unspecified part of neck of left femur, initial encounter for closed fracture Code(s): S72.002A - Fracture of unspecified part of neck of left femur, initial encounter for closed fracture Status: Acute Assessment and Plan: Dr. Grimes has been consulted and appreciate recommendations. POD3 ORIF with [employer] PT and trochanteric nail device left intertrochanteric hip fracture. Tolerated procedure well per EMR. Lt knee pain has improved; unsure if he injured this on fall. No acute osseous abnormality of left knee on xray today; he is to have mri of knee per Dr. Grimes Post op care, pain management, PT/OT, DVT ppx per Dr. Grimes CC following and working on possible placement for disposition (2) Chronic kidney disease: Qualifiers: Chronic kidney disease stage: stage 1 Qualified Code(s): N18.1 - Chronic kidney disease, stage 1 Code(s): N18.9 - Chronic kidney disease, unspecified Status: Chronic Assessment and Plan: Cr 3.30; slightly trending up. Appears to be at baseline. Follows Dr. 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 Diabetes mellitus complication status: with kidney complications Diabetes mellitus complication detail: with chronic kidney disease Chronic kidney disease stage: stage 4 (severe) Qualified Code(s): E11.22 - Type 2 diabetes mellitus with diabetic chronic kidney disease; N18.4 - Chronic kidney disease, stage 4 (severe); Z79.4 - prison (current) use of insulin Code(s): E11.9 - Type 2 diabetes mellitus without complications Status: Chronic Assessment and Plan: BGL 300s this morning, but 100s this afternoon Accuchecks, SSI Coverage, hypoglycemic protocol, diabetic diet Consider resuming home insulin regimen (4) Hypertension: Qualifiers: Hypertension type: unspecified Qualified Code(s): I10 - Essential (primary) hypertension Code(s): I10 - Essential (primary) hypertension Status: Chronic Assessment and Plan: BP 140s sys today Monitor blood pressure. Continue amlodipine and metoprolol. (5) Congestive heart failure: Qualifiers: Heart failure type: unspecified Heart failure chronicity: chronic Qualified Code(s): I50.9 - Heart failure, unspecified Code(s): I50.9 - Heart failure, unspecified Status: Chronic Assessment and Plan: Currently compensated. Monitor Is and Os, daily weights. continue home CHF medications. (6) Atrial fibrillation: Qualifiers: Atrial fibrillation type: unspecified Qualified Code(s): I48.91 - Unspecified atrial fibrillation Code(s): I48.91 - Unspecified atrial fibrillation Status: Chronic Assessment and Plan: Appears to be in sinus rhythm at time of visit; rate controlled Eliquis resumed per Orthopedic surgery Continue beta rich. (7) COPD (chronic obstructive pulmonary disease): Qualifiers: COPD type: unspecified COPD Qualified Code(s): J44.9 - Chronic obstructive pulmonary disease, unspecified Code(s): J44.9 - Chronic obstructive pulmonary disease, unspecified Status: Chronic Assessment and Plan: No acute issues. Lung
--- NOTE | 2019-11-18 14:14 | PCCCNOTE ---
Per Care Coordination: Pt to discharge to [place] in [facility]. Fax number for nurses station [phone]. Phone number [phone]. Send copy of therapy notes from 11/18/2019.
== END 2019-11-18 17:30 | DRG 481 ==
LOC: ANHED 21:52 → ANH3MEDSUR 21:58
PROVIDERS: Internal Medicine Nephrology; Orthopaedic Surgery; Physician Assistant; Admitting Provider Family Medicine; Emergency Provider Emergency Medicine; Visit Provider Family Medicine
PROC: 0QS734Z Reposition Left Upper Femur with Internal Fixation Device, Percutaneous Approach (ICD-10-PCS; principal; 2019-11-14 07:30)
DX: S72.002A Fracture of unspecified part of neck of left femur, initial encounter for closed fracture (principal); I13.0 Hypertensive heart and chronic kidney disease with heart failure and stage 1 through stage 4 chronic kidney disease, or unspecified chronic kidney disease; N18.4 Chronic kidney disease, stage 4 (severe); E10.40 Type 1 diabetes mellitus with diabetic neuropathy, unspecified; E10.51 Type 1 diabetes mellitus with diabetic peripheral angiopathy without gangrene; E10.22 Type 1 diabetes mellitus with diabetic chronic kidney disease; I50.9 Heart failure, unspecified; D64.9 Anemia, unspecified; M25.562 Pain in left knee; I25.10 Atherosclerotic heart disease of native coronary artery without angina pectoris; J44.9 Chronic obstructive pulmonary disease, unspecified; F17.210 Nicotine dependence, cigarettes, uncomplicated; I48.0 Paroxysmal atrial fibrillation; E78.5 Hyperlipidemia, unspecified; G47.33 Obstructive sleep apnea (adult) (pediatric); I71.4 Abdominal aortic aneurysm, without rupture; N40.0 Benign prostatic hyperplasia without lower urinary tract symptoms; E03.9 Hypothyroidism, unspecified; W10.8XXA Fall (on) (from) other stairs and steps, initial encounter; Z79.01 Long term (current) use of anticoagulants; Z79.4 Long term (current) use of insulin; Z79.899 Other long term (current) drug therapy; Z88.0 Allergy status to penicillin; Z95.1 Presence of aortocoronary bypass graft; Z95.2 Presence of prosthetic heart valve
CPT/HCPCS: 36415; 70450; 71045; 73501; 73502; 73562; 73700; 73721; 80048; 80053; 80069; 82306; 82607; 82728; 82746; 83036; 83540; 83550; 83735; 84443; 84484; 85025; 85027; 85055; 85610; 85730; 86850; 86900; 86901; 93005; 96365; 96375; 96376; 97110; 97162; 97166; 97530; 97535; 99285; A9270; C1713; G0378; J0131; J0330; J0690; J1100; J1170; J1815; J2250; J2405; J2704; J3010; J3370; J7030; J7120

== ENCOUNTER 2019-11-19 08:41 | Emergency (ER) | payer MEDICARE, MEDICAID, SELFPAY ==
--- NOTE | ~2019-11-19 | XR_ITS ---
EXAMINATION: XR hip LT min 3V w AP pelvis INDICATION: Left hip pain TECHNIQUE: AP view the pelvis and four views of the left hip and proximal femur are obtained. COMPARISON: 11/12/2019 FINDINGS: There has been interval internal stabilization of the previously described intertrochanteri c left femur fracture. No new fracture is identified. The femoral head is well-seated in the acetabul um. Endoluminal vascular stents are noted in the pelvis. IMPRESSION: 1. Internally stabilized intertrochanteric fracture of the proximal left femur without new osseous ab normality identified. Reviewed, dictated and finalized at location A. IMPRESSION: 1. Internally stabilized intertrochanteric fracture of the proximal left femur without new osseous abnormality identified.
[2019-11-19 08:43] VITALS: BP 107/68; PULSE 77; RESP 18; TEMP 36.4; O2SAT 100
--- NOTE | 2019-11-19 08:47 | ED.FALL ---
HPI - Fall General Chief Complaint: Fall Stated Complaint: FALL/L HIP PAIN History of Present Illness HPI Narrative: He is in rehab following left hip surgery. This morning her rolled out of bed and landed on the same hip. He is now reporting severe pain and more limited movement in that hip. Related Data Home Medications Medication Instructions Recorded Confirmed Eliquis 5 mg PO BID 11/12/19 11/12/19 amlodipine 10 mg PO DAILY 11/12/19 11/12/19 clopidogrel 75 mg PO DAILY 11/12/19 11/13/19 finasteride 5 mg PO DAILY 11/12/19 11/13/19 insulin aspart U-100 [Novolog 5 unit SUBCUT USEASDIRECTD 11/12/19 11/13/19 U-100 Insulin aspart] levothyroxine 125 mcg PO DAILY 11/12/19 11/12/19 loratadine 10 mg PO DAILY 11/12/19 11/12/19 metoprolol succinate 100 mg PO DAILY 11/12/19 11/12/19 rosuvastatin 20 mg PO DAILY 11/12/19 11/13/19 tamsulosin 0.4 mg PO HS 11/12/19 11/13/19 duloxetine 60 mg PO DAILY 11/13/19 11/13/19 pantoprazole 40 mg PO DAILY 11/13/19 11/13/19 Allergies Allergy/AdvReac Type Severity Reaction Status Date / Time Penicillins Allergy Unknown Unknown Verified 11/19/19 08:49 Review of Systems Review of Systems: All systems reviewed & are unremarkable except as noted in HPI and below Constitutional: Constitutional: Denies fever(s) Eyes: Eyes: Denies change in vision Cardiovascular: Cardiovascular: Denies chest pain Respiratory: Respiratory: Denies dyspnea Musculoskeletal: Musculoskeletal: Denies back pain Neurologic: Reports weakness PMFSH Past Medical History Medical History Atrial fibrillation 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tructive pulmonary disease) Diabetes Endocarditis Hyperlipidemia Hypertension Hypothyroidism Surgical History Surgical History S/P CABG x 1 Family History Family History Father Family history of liver disease Mother Family history of heart disease in male family member before age 55 Sibling Acute myocardial infarction Social History Social History Smoking packs per day: 1 Smoking cigarettes per day: 20.0 Years smoked: 30 Smoking pack-years: 30.00 Smoking status: Current every day smoker Tobacco type: cigarettes Second hand tobacco smoke exposure: Yes Alcohol intake: never Substance use: never Gender identity (if verbalized by the patient): Male Spiritual care concerns: No Exam Const: General: no acute distress and alert Orientation/consciousness: patient oriented x3 HENMT: Head: normal to inspection, no contusions, no hematomas and no lacerations Resp: Effort & Inspection: normal respiratory effort Auscultation: clear to auscultation bilaterally Cardio: Rate: regular rate Rhythm: regular rhythm Skin: Other: Healing surgical incisions to left hip. Neuro: General: patient oriented x3, moves all extremities and CN's II-XI intact bilaterally Speech: normal speech Extrem: Other: Left hip tender with resolving bruising Course Vital Signs Vital signs: Vital Signs Temperature 36.4 C L 11/19/19 08:43 Pulse Rate 77 11/19/19 08:43 Respiratory Rate 18 11/19/19 08:43 Blood Pressure 107/68 11/19/19 08:43 Pulse Oximetry 100 11/19/19 08:43 Temperature 36.4 C L 11/19/19 08:43 Pulse Rate 77 11/19/19 08:43 Respiratory Rate 18 11/19/19 08:43 Blood Pressure 107/68 11/19/19 08:43 Pulse Oximetry 100 11/19/19 08:43 MDM - Fall Imaging Data Radiologist's impression: ITS Impressions Hip/Pelvis X-Ray 11/19/19 09:22 IMPRESSION: 1. Internally stabilized intertrochanteric fracture of the proximal left femur without new osseous abnormality identified. Discharge Plan Discharge Clinical Impression: Hip pain, l
== END 2019-11-19 11:27 ==
PROVIDERS: Emergency Provider Emergency Medicine
DX: M25.552 Pain in left hip (principal); S72.142D Displaced intertrochanteric fracture of left femur, subsequent encounter for closed fracture with routine healing; I48.91 Unspecified atrial fibrillation; E11.22 Type 2 diabetes mellitus with diabetic chronic kidney disease; I13.0 Hypertensive heart and chronic kidney disease with heart failure and stage 1 through stage 4 chronic kidney disease, or unspecified chronic kidney disease; N18.4 Chronic kidney disease, stage 4 (severe); I50.9 Heart failure, unspecified; E78.5 Hyperlipidemia, unspecified; E03.9 Hypothyroidism, unspecified; I25.10 Atherosclerotic heart disease of native coronary artery without angina pectoris; Z95.1 Presence of aortocoronary bypass graft; F17.210 Nicotine dependence, cigarettes, uncomplicated; Z79.4 Long term (current) use of insulin; Z79.01 Long term (current) use of anticoagulants; X58.XXXD Exposure to other specified factors, subsequent encounter; W06.XXXA Fall from bed, initial encounter
CPT/HCPCS: 73502; 99283

== ENCOUNTER 2020-01-01 01:16 | Inpatient (IN) | payer MEDICARE, MEDICAID, SELFPAY ==
[2020-01-01] VITALS (9 sets, daily range): BP systolic 123–140; BP diastolic 52–84; PULSE 57–110; RESP 9–16; TEMP 36.4–36.8; O2SAT 97–100; BMI 28.8
--- NOTE | 2020-01-01 | ECHO_ITS ---
Patient Info Name: Dustin Angel Age: 59 years : 1960 Gender: Male Ht: 74 in Wt: 224 lbs BSA: 2.32 m2 HR: 108 bpm BP: 89 / 62 mmHg Heart Rhythm: Atrial Fibrillation Technical Quality: Fair Exam Date: 01/01/2020 8:51 AM Exam Location: [facility] Patient Status: Inpatient Admit Date: 01/01/2020 Staff Ordering Physician: Kathrin Goddard PA-C Podiatry Professor: Karlee Madrid RDCS Attending Provider: Kathrin Goddard PA-C Referring Physician: Nitza YEE; Exam Type: CA echo doppler w bubble study Study Info Complete two-dimensional, color flow and Doppler transthoracic echocardiogram is performed with agitated saline. Complete two-dimensional, color flow and Doppler transthoracic echocardiogram is performed with contrast to opacify the left ventricle and to improve the deliniation of the left ventricle endocardial borders. Contrast/Agitated Saline Contrast/Ag. Saline: Definity Amount: 2.00 ml Contrast/Ag. Saline: Agitated Saline Amount: 10.00 ml Summary 1. Left ventricular chamber dimension is normal. 2. Left ventricular systolic function is normal, estimated at 60-65%. 3. Left atrial chamber dimension is moderately enlarged. 4. The aortic valve is not well visualized. 5. There is mild aortic valve stenosis with a peak velocity of 219 cm/s, mean gradient of 9 mmHg, and aortic valve area of 2.5 cm2. 6. Suboptimal acoustical windows. Left Ventricle Left ventricular chamber dimension is normal. Left ventricular systolic function is normal, estimated at 60-65%. Right Ventricle Right ventricular chamber dimension is normal. Left Atria Left atrial chamber dimension is moderately enlarged. Right Atria Right atrial chamber dimension is normal. Aortic Valve The aortic valve is not well visualized. There is moderate aortic valve sclerosis. There is mild aortic valve stenosis with a peak velocity of 219 cm/s, mean gradient of 9 mmHg, and aortic valve area of 2.5 cm2. Pulmonic Valve The pulmonic valve is not well visualized. Mitral Valve The mitral valve has normal leaflets. The mitral valve annulus is moderately calcified. Tricuspid Valve The tricuspid valve leaflets are not well visualized. Pericardium/Pleural The pericardium appears normal. Aorta The aortic root size at the sinus of Valsalva is normal. Left Ventricular Outflow Tract Name Value Normal LVOT 2D LVOT Diameter 2.2 cm LVOT Doppler LVOT Peak Velocity 119 cm/s LVOT Peak Gradient 6 mmHg LVOT Mean Gradient 3 mmHg LVOT VTI 23 cm LVOT VTI/AV VTI Ratio 0.6 LVOT Stroke Volume 91 ml LVOT CO 9.4 l/min LVOT CI 4.1 l/min/m2 Pulmonic Valve Name Value Normal
--- NOTE | ~2020-01-01 | US_ITS ---
EXAMINATION: US carotid duplex BI DATE: 01/01/2020 11:28 INDICATION: Stroke TECHNIQUE: Grayscale, color Doppler, and pulsed Doppler images of the cervical carotid arteries were obtained. The degree of vessel stenosis is placed in one of the following categories: normal, <50%, 5 0-69%, >=70% but less than near-occlusion, near-occlusion, or total occlusion. Note that percent sten osis relative to normal distal artery lumen diameter is indirectly measured from velocity measurement s as described by Jas, et al. Radiology 2003; [id number]. COMPARISON: None. FINDINGS: RIGHT: The right common carotid artery (CCA) peak systolic velocity (PSV) is 102 cm/s. The right internal ca rotid artery (ICA) PSV is 82 cm/s. The right ICA end-diastolic velocity (EDV) is 18 cm/s. The right I CA/CCA PSV ratio is 0.8. Grayscale and color Doppler images yield an estimate of <50% diameter reduct ion from plaque in the ICA. The external carotid artery (ECA) PSV is 165 cm/s. There is antegrade chio w in the right vertebral artery. LEFT: The left CCA PSV is 129 cm/s. The left ICA PSV is 113 cm/s. The left ICA EDV is 17 cm/s. The left ICA /CCA PSV ratio is 0.9. Grayscale and color Doppler images yield an estimate of <50% diameter reductio n from plaque in the ICA. The ECA PSV is 121 cm/s. There is antegrade flow in the left vertebral sanjana ry. IMPRESSION: 1. <50% stenosis in the right internal carotid artery. 2. <50% stenosis in the left internal carotid artery. Reviewed, dictated and finalized at location A.
--- NOTE | ~2020-01-01 | MR_ITS ---
EXAMINATION: MR brain/brain stem wo con DATE: 01/01/2020 14:57 INDICATION: Subacute stroke with new onset seizure and confusion TECHNIQUE: Magnetic resonance imaging (MRI) of the brain and brainstem was performed without intraven ous contrast. Sequences included sagittal and axial T1-weighted SE, axial diffusion-weighted FS SE, a xial T2*-weighted GRE, axial T2-weighted FLAIR, and axial T2-weighted FSE. Apparent diffusion coeffic ient (ADC) maps were created. COMPARISON: CT dated 01/01/2020 FINDINGS: Small to moderate sized region of restricted diffusion in the right frontal lobe with associated cyto toxic edema as seen on prior CT consistent with acute to subacute infarct. Suggestion of a small bobby on of encephalomalacia related to more chronic infarct along the inferior margin of the likely subacu te infarct. There are couple additional small regions of encephalomalacia consistent with chronic inf arcts in the more posterior right frontal lobe. No intracranial hemorrhage or abnormal intracranial m ass lesion. There are scattered areas of nonspecific increased T2-weighted signal intensity in the ce rebral white matter, predominantly involving the deep and periventricular white matter. There are no intraparenchymal signal abnormalities seen on the other pulse sequences. The ventricles are symmetric and normal in size. There are no abnormal extra-axial fluid collections. Flow voids are seen in the cerebral arteries on the T2-weighted sequences consistent with their expected patency. Bilateral mast oid effusions. Visualized orbits and soft tissues are unremarkable. IMPRESSION: 1. Small to moderate-sized acute to subacute infarct in the right frontal lobe. 2. 3 additional small regions of encephalomalacia consistent with chronic infarcts in the right front al lobe. Reviewed, dictated and finalized at location A. IMPRESSION: 1. Small to moderate-sized acute to subacute infarct in the right frontal lobe. 2. 3 additional small regions of encephalomalacia consistent with chronic infar cts in the right frontal lobe.
--- NOTE | ~2020-01-01 | CT_ITS ---
EXAMINATION: CT brain wo con EXAM DATE: 01/01/2020 02:29 INDICATION: Seizure. TECHNIQUE: Spiral CT of the head was performed without contrast. Axial, coronal and sagittal images were reviewed. The dose-length product (DLP) for this examination was 605.33 mGy-cm. The exposure w as tailored according to patient size, and iterative reconstruction (ASIR) was used as additional dos e reduction technique. Comparison is made to prior examination from 11/12/2019. FINDINGS: Probable subacute small to moderate-sized right frontal lobe infarction, has developed comp ared to 11/12/2019. There is old small right frontal lobe infarction posteriorly. These are both in th e middle cerebral artery distribution. No brain mass suspected. No acute intracranial hemorrhage, ext ra-axial collections or obstructive hydrocephalus. Calvarium unremarkable. The soft tissue is unremar kable. IMPRESSION: Development of subacute small to moderate right frontal lobe infarction. Old smaller rig ht frontal lobe chronic infarction. Reviewed, dictated and finalized at location A. IMPRESSION: Development of subacute small to moderate right frontal lobe infar ction. Old smaller right frontal lobe chronic infarction.
--- NOTE | 2020-01-01 01:27 | ECG_ITS ---
Measurements Intervals [place] Rate: 63 P: 27 DE: 166 QRS: 41 QRSD: 104 T: 86 QT: 435 QTc: 447 Interpretive Statements SINUS RHYTHM BORDERLINE ST-T WAVE ABNORMALITY- HIGH LATERAL LEADS BASELINE ARTIFACT- I, II, III, AVR, AVL, AVF BORDERLINE ECG Electronically Signed On 01-01-2020 7:32:04 CDT by Deondre Wise D.O.
--- NOTE | 2020-01-01 01:30 | ED.NEUROSD ---
HPI - Neuro Symptoms/Deficit General Chief Complaint: Neuro Symptoms/Deficit Stated Complaint: Neuro symptoms Time Seen by Provider: 01/01/20 01:23 Source: family Mode of arrival: ambulatory Limitations: no limitations History of Present Illness HPI Narrative: THis patient is a 59 year old male with multiple medical problems who presents for evaluation of abnormal shaking. His significant other states patient developed full body shaking approximately 1 hour ago. She reports this lasted 20 minutes and he appeared to be breathing abnormal with tongue sticking out. She also reports urinary incontinence. She reports he was confused afterwards for 30 minutes. She denies history of seizures. PAtient denies any recent falls, headache or head injury. He does take anticoagulation for CHF and valve disease. patient has no complaints. Related Data Home Medications Medication Instructions Recorded Confirmed Eliquis 5 mg PO BID 11/12/19 01/01/20 amlodipine 10 mg PO DAILY 11/12/19 01/01/20 clopidogrel 75 mg PO DAILY 11/12/19 01/01/20 loratadine 10 mg PO DAILY 11/12/19 01/01/20 metoprolol succinate 100 mg PO DAILY 11/12/19 01/01/20 rosuvastatin 20 mg PO DAILY 11/12/19 01/01/20 tamsulosin 0.4 mg PO HS 11/12/19 01/01/20 duloxetine 60 mg PO DAILY 11/13/19 01/01/20 pantoprazole 40 mg PO DAILY 11/13/19 01/01/20 docusate sodium 100 mg PO DAILY 01/01/20 01/01/20 evolocumab [Repatha SureClick] 140 mg SUBCUT 2XW 01/01/20 01/01/20 ferrous sulfate [Iron (ferrous 325 mg PO DAILY 01/01/20 01/01/20 sulfate)] furosemide 40 mg PO BID 01/01/20 01/01/20 hydrocodone-acetaminophen 1 tablet PO QID 01/01/20 01/01/20 insulin aspart U-100 [Novolog 1 sliding scale dose SUBCUT DAILY 01/01/20 01/01/20 U-100 Insulin aspart] levothyroxine 125 mcg PO DAILY 01/01/20 01/01/20 Allergies Allergy/AdvReac Type Severity Reaction Status Date / Time Penicillins Allergy Unknown Unknown Verified 01/01/20 05:59 Review of Systems Review of Systems: All systems reviewed & are unremarkable except as noted in HPI and below Constitutional: Constitutional: Denies chills and Denies fever(s) Eyes: Eyes: Denies change in vision Cardiovascular: Cardiovascular: Denies chest pain Respiratory: Respiratory: Denies dyspnea Gastrointestinal: Gastrointestinal: Denies abdominal pain, Denies nausea and Denies vomiting Neurologic: Denies headache(s) [facility] Past Medical History Medical History Atrial fibrillation 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tructive pulmonary disease) Deficient knowledge of open reduction and internal (ORIF) fixation of hip Left on 11/14/2019 Diabetes Endocarditis Hyperlipidemia Hypertension Hypothyroidism Surgical History Surgical History S/P CABG x 1 Family History Family History Father Family history of liver disease Mother Family history of heart disease in male family member before age 55 Sibling Acute myocardial infarction Social History Social History Years smoked: 30 Smoking status: Former smoker Tobacco type: cigarettes Second hand tobacco smoke exposure: Yes Alcohol intake: never Substance use: never Substance use type: does not use Living arrangements: with family Additional living arrangements comments: Lives in [place], [place] with Christiana [employer] other who is POA. Occupation/Education: retired Gender identity (if verbalized by the patient): Male Spiritual care concerns: No Exam Const: General: no acute distress and alert Orientation/consciousness: patient oriented x3 HENMT: Head: normocephalic and atraumatic Face and sinus: face symmetric Mouth: Yes Normal oral and palatal mucosa present, Yes lip normal, Yes oropharynx normal and Ye
--- NOTE | 2020-01-01 01:37 | PC.NURSE ---
perpt girlfriend sue- michelle is always somewhat confused. He is a& ox 3 at this time.
[2020-01-01 02:02] LABS: Basophils Percent Auto 0.1 % (0.2-1.2); Eosinophils Absolute Auto 0.2 K/mm3 (0-0.3); Eosinophils Percent Auto 2.7 % (0-4.4); Hematocrit 31.4 % (42.0-52.0); Hemoglobin 9.8 g/dL (14.0-18.0); Immature Granulocyte Absolute 0.03 K/mm3 (0.00-0.031); Immature Granulocyte Percent A 0.4 % (0-0.5); Lymphocytes Absolute Auto 1.28 K/mm3 (0.9-3.2); Lymphocytes Percent Auto 18.9 % (18.3-44.2); Mean Corpuscular HGB Conc 31.2 g/dl (32-36); Mean Corpuscular Hemoglobin 28.5 pg (26-34); Mean Corpuscular Volume 91.3 fl (80-100); Mean Platelet Volume 10.7 fl (7.4-10.4); Monocytes Absolute Auto 0.5 K/mm3 (0.1-0.6); Monocytes Percent Auto 7.2 % (2.6-8.5); Neutrophils Absolute Auto 4.8 K/mm3 (1.3-6.7); Neutrophils Percent Auto 70.7 % (45.5-73.1); Platelet Count Result 145 k/mm3 (150-375); Red Blood Count 3.44 M/mm3 (4.6-6.20); Red Cell Distribution Width 15.1 % (11.5-14.5); White Blood Count 6.8 K/mm3 (4.5-10.0)
[2020-01-01 02:06] LABS: INR 1.4; Prothrombin Time 16.4 Seconds (11.1-14.7)
[2020-01-01 02:07] LABS: Partial Thromboplastin Time 34.3 SECONDS (22.3-36.8)
[2020-01-01 02:08] LABS: Alanine Aminotransferase 18 U/L (4-50); Albumin Level 4.5 g/dL (3.5-5.1); Alkaline Phosphatase 176 U/L (38-126); Anion Gap 12 mmol/L (8-16); Aspartate Amino Transferase 27 U/L (17-59); Bilirubin,Total 0.6 mg/dL (0.2-1.3); Blood Urea Nitrogen 32 mg/dL (9-20); Calcium 9.6 mg/dL (8.4-10.2); Carbon Dioxide 30 mmol/L (22-30); Chloride 101 mmol/L (98-107); Estimated CRCL calculation 26 ml/min; Estimated Glomerular Filt Rate 19; Glucose 157 mg/dL (75-110); Potassium 3.8 mmol/L (3.4-5.0); Sodium 143 mmol/L (137-145)
--- NOTE | 2020-01-01 05:58 | ADMGEN ---
This patient, Dustin Angel, was admitted to Medical Room 345-01. Patient/family oriented to hospital policies and general routines including ID bracelet, bed and alarms, visiting hours, pain management, procedures, bathroom and other care routines, personal items, smoking policy, room service/diet, and visiting hours. Valuables list has been completed. Information on how to activate the Rapid Response Team has been discussed. Patient/Family are encouraged to report perceived risks to care and to ask questions if they do not understand what they are told or what they should do.
[2020-01-01 07:49] LABS: Glucose Point of Care 110 (65-105)
[2020-01-01 08:56] LABS: Cholesterol 121 mg/dL (0-200); HDL Direct 37 mg/dL; Triglycerides 170 mg/dL (<150)
[2020-01-01 09:06] LABS: LDL Cholesterol Direct 44 mg/dL
[2020-01-01] MEDS: DIVALPROEX SODIUM 250 MG TABEC 500 MG PO ×2 (09:52→17:31)
[2020-01-01] MEDS: ROSUVASTATIN 10 MG TABLET 20 MG PO (09:52)
[2020-01-01] MEDS: LEVOTHYROXINE SODIUM 125 MCG TABLET PO (09:52)
[2020-01-01] MEDS: DULoxetine HCL 60 MG CAPSULE.DR PO (09:52)
[2020-01-01] MEDS: PANTOPRAZOLE 40 MG TABLET PO (09:52)
[2020-01-01] MEDS: DOCUSATE SODIUM 100 MG CAPSULE PO (09:52)
[2020-01-01] MEDS: LORATADINE 10 MG TABLET PO (09:52)
[2020-01-01] MEDS: FUROSEMIDE 40 MG TABLET PO ×2 (09:52→17:31)
[2020-01-01] MEDS: PERFLUTREN LIPID MICROSPHERES 1.5 ML VIAL DILUTED TO 10 ML TOTAL VOLUME (09:53)
[2020-01-01] MEDS: HYDROcodone/acetaminophen (*CRX) 10-325 MG TABLET 1 TAB PO ×4 (09:53→20:27)
--- NOTE | 2020-01-01 10:27 | PM.IMHP ---
H&P: HPI History of Present Illness Date/Time: 01/01/20 10:27 Chief complaint: new onset seizure, subacute infarct Narrative: Dustin Angel is a 59 year old male with a history of atrial fibrillation on Eliquis, diastolic CHF, COPD, diabetes, who presented to the emergency room after possible seizure. Patient's significant other states he has been having intermittent confusion over the last 6 months to a year. They recently followed up with a neurologist at [facility] any supposed to have neurologic testing coming up soon. He was here back in October after he broke his hip and had surgery. He was discharged to a group home facility and family returned home on December 03. Since being home he has had intermittent confusion and slurred speech which happened a couple of weeks ago and lasted only few days. Then about 4 days ago his confusion symptoms began again. The family was not concerned with his neurologic changes. The patient went to bed last night and the significant other woke up to him shaking in bed. When she called his need he was not responsive. His arms were straight out and shaking, his tongue was at the roof of his mouth and sticking out of his mouth. She states the whole episode lasted about 10 minutes and resolved. Then he was postictal, noticed he was incontinent, not following commands, and was slowly coming back to over about 20 minutes. She then became concerned and brought him to the hospital for further evaluation. Labs showed temperature of 98.3?, blood pressure 140/76, heart rate 64, respiratory rate of 9, oxygen saturation 100% on room air. Initial labs showed normocytic anemia which appears chronic, thrombocytopenia which appears chronic, creatinine of 3.3 which is his baseline, glucose was slightly elevated 157, alk-phos slightly elevated at 176. Lipid panel showed normal LDL at 44, elevated triglycerides at 170 otherwise within normal range. CT head on arrival showed Development of subacute small to moderate right frontal lobe infarction. Old smaller right frontal lobe chronic infarction. He was also started on seizure medications and admitted into the hospital for acute stroke, seizure and further workup and Neurology evaluation. The patient himself states he was at his normal state of health yesterday without any issues. He denies any chest pain, shortness of breath, cough, fever, chills, headache, vision changes, numbness, tingling, focal weakness, nausea, vomiting, abdominal pain, diarrhea, constipation, leg swelling, calf pain, weight gain, lightheadedness, dizziness or any other symptoms at this time. Code status: Full code [id number]: Significant other, Dafne Ayala PCP: Dr. Haroldo Jose Review of Systems Review of Systems: All systems reviewed & are unremarkable except as noted in HPI and below PMFSH Past Medical History Medical History Atrial fibrillation 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tructive pulmonary disease) Deficient knowledge of open reduction and internal (ORIF) fixation of hip Left on 11/14/2019 Diabetes Endocarditis Hyperlipidemia Hypertension Hypothyroidism Surgical History Surgical History S/P CABG x 1 Family History Family History Father Family history of liver disease Mother Family history of heart disease in male family member before age 55 Sibling Acute myocardial infarction Social History Social History Years smoked: 30 Smoking status: Former smoker Tobacco type: cigarettes Second hand tobacco smoke exposure: Yes Alcohol intake: never Substance use: never Substance use type: does not use Living arrangements: with family Additional living arran
[2020-01-01 10:42] LABS: Add Urine Microscopic? YES; Appearance Urine Cloudy (Clear); Bilirubin Urine Negative (Negative); Blood Urine Negative (Negative); Color Urine Yellow (Yellow); Glucose Urine UA Negative (Negative); Ketones Urine Negative (Negative); Leukocyte Esterase Ur Negative LEU/UL (Negative); Mucus Urine Rare /lpf; Nitrate Urine Negative (Negative); Protein Urine 3+ mg/dL (Negative); Specific Grav Ur 1.013 (1.001-1.035); Squamous Epithelial Cell Urine Rare /hpf (Few); Urobilinogen Urine Negative mg/dL (<2.0)
[2020-01-01 11:38] LABS: Glucose Point of Care 125 (65-105)
--- NOTE | 2020-01-01 14:14 | PCRCNOTE ---
Pt states he has a CPAP at home but does not wear it. He does not want one here either.
[2020-01-01] MEDS: CLOPIDOGREL BISULFATE 75 MG TABLET PO (15:09)
[2020-01-01] MEDS: diphenhydrAMINE HCl CAP 25 MG CAPSULE PO (15:09)
[2020-01-01] MEDS: FERROUS SULFATE 324 MG TABLET PO (15:09)
[2020-01-01 16:43] LABS: Glucose Point of Care 128 (65-105)
--- NOTE | 2020-01-01 16:50 | WPDNEURCNPN ---
Assessment and Plan Assessment and plan (1) Seizure: Code(s): R56.9 - Unspecified convulsions Status: Acute (2) CVA (cerebrovascular accident): Code(s): I63.9 - Cerebral infarction, unspecified Status: Acute (3) Normocytic anemia: Code(s): D64.9 - Anemia, unspecified Status: Acute (4) CAD (coronary artery disease) of artery bypass graft: Code(s): I25.810 - Atherosclerosis of coronary artery bypass graft(s) without angina pectoris Status: Acute (5) CKD stage 4 due to type 1 diabetes mellitus: Code(s): E10.22 - Type 1 diabetes mellitus with diabetic chronic kidney disease; N18.4 - Chronic kidney disease, stage 4 (severe) Status: Acute (6) Hypothyroidism: Qualifiers: Hypothyroidism type: unspecified Qualified Code(s): E03.9 - Hypothyroidism, unspecified Code(s): E03.9 - Hypothyroidism, unspecified Status: Chronic (7) COPD (chronic obstructive pulmonary disease): Qualifiers: COPD type: unspecified COPD Qualified Code(s): J44.9 - Chronic obstructive pulmonary disease, unspecified Code(s): J44.9 - Chronic obstructive pulmonary disease, unspecified Status: Chronic (8) Atrial fibrillation: Qualifiers: Atrial fibrillation type: unspecified Qualified Code(s): I48.91 - Unspecified atrial fibrillation Code(s): I48.91 - Unspecified atrial fibrillation Status: Chronic (9) Congestive heart failure: Qualifiers: Heart failure type: unspecified Heart failure chronicity: chronic Qualified Code(s): I50.9 - Heart failure, unspecified Code(s): I50.9 - Heart failure, unspecified Status: Chronic Additional Plan I have already started him on Depakote considering his renal dysfunction and discussed with his the risk in the benefits to have the laboratory data done every few months to make sure that his platelets and the liver functions are within the normal range he is to follow up with his neurologist after the neuropsych testing which is quite appropriate and we will continue the Depakote at this point as it is Consult date: 01/01/20 Time Seen: 16:00 HPI: Dustin Angel is a 59 year old male who is right-handed and not any distress was admitted because of having had a witnessed seizure and the was present at the time of the interview it was roughly about 3 minutes tonic-clonic seizure in a background of having had progressive decline in his cognitive function particularly the short-term memory for which he has seen a neurologist and is lined up to have a neuropsych psychological testing done soon and then the follow-up appointment lately he has been noticed to have some hallucinations for which he saw the neurologist and the question is raised whether not he is having progressive dementia on the line of Lewy body at the time of this examination he killer clearly has short-term memory deficit and unable to abstract but it could very well be a postictal phenomenon rather than real baseline however he denies any headache nausea vomiting chest pain shortness of breath fever chills sore throat A CT scan raises the question of a rather subacute stroke an MRI has been performed and results are pending at this time on the other hand the patient does not have any lateralizing deficit is already on appropriate anticoagulant and antiplatelet therapy and follows the [place] Review of Systems Review of Systems: All systems reviewed & are unremarkable except as noted in HPI and below [facility] Past Medical History Medical History Atrial fibrillation 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tructive pulmonary disease) Deficient knowledge of open reduction and internal (ORIF) fixation of hip Left on 11/14/2019 Diabetes Endocarditis Hyperlipidemia Hypertension Hypothyroidism Surgical History Morris
[2020-01-01] MEDS: MELATONIN 3 MG TABLET PO (20:27)
[2020-01-01] MEDS: TAMSULOSIN HCL 0.4 MG CAPSULE PO (20:27)
[2020-01-01 22:04] LABS: Glucose Point of Care 113 (65-105)
[2020-01-02] VITALS (9 sets, daily range): BP systolic 106–151; BP diastolic 62–79; PULSE 61–124; RESP 16; TEMP 36–36.8; O2SAT 92–100
[2020-01-02 05:35] LABS: Hematocrit 27.2 % (42.0-52.0); Hemoglobin 8.8 g/dL (14.0-18.0); Mean Corpuscular HGB Conc 32.4 g/dl (32-36); Mean Corpuscular Hemoglobin 29.1 pg (26-34); Mean Corpuscular Volume 90.1 fl (80-100); Mean Platelet Volume 10.2 fl (7.4-10.4); Platelet Count Result 116 k/mm3 (150-375); Red Blood Count 3.02 M/mm3 (4.6-6.20); Red Cell Distribution Width 15.1 % (11.5-14.5); White Blood Count 5.7 K/mm3 (4.5-10.0)
[2020-01-02] MEDS: LEVOTHYROXINE SODIUM 125 MCG TABLET PO (05:44)
[2020-01-02 06:01] LABS: Anion Gap 11 mmol/L (8-16); Blood Urea Nitrogen 29 mg/dL (9-20); Calcium 8.7 mg/dL (8.4-10.2); Carbon Dioxide 28 mmol/L (22-30); Chloride 104 mmol/L (98-107); Estimated CRCL calculation 27 ml/min; Estimated Glomerular Filt Rate 20; Glucose 102 mg/dL (75-110); Potassium 3.3 mmol/L (3.4-5.0); Sodium 143 mmol/L (137-145)
[2020-01-02 07:46] LABS: Glucose Point of Care 123 (65-105)
[2020-01-02] MEDS: FUROSEMIDE 40 MG TABLET PO ×2 (08:48→17:38)
[2020-01-02] MEDS: HYDROcodone/acetaminophen (*CRX) 10-325 MG TABLET 1 TAB PO ×4 (08:48→20:55)
[2020-01-02] MEDS: PANTOPRAZOLE 40 MG TABLET PO (08:48)
[2020-01-02] MEDS: DULoxetine HCL 60 MG CAPSULE.DR PO (08:48)
[2020-01-02] MEDS: LORATADINE 10 MG TABLET PO (08:48)
[2020-01-02] MEDS: APIXABAN 5 MG TABLET PO ×2 (08:48→17:38)
[2020-01-02] MEDS: DIVALPROEX SODIUM 250 MG TABEC 500 MG PO ×2 (08:48→17:38)
[2020-01-02] MEDS: ROSUVASTATIN 10 MG TABLET 20 MG PO (08:48)
[2020-01-02] MEDS: DOCUSATE SODIUM 100 MG CAPSULE PO (08:48)
--- NOTE | 2020-01-02 09:21 | PM.IMPN ---
Progress Note: A&P Assessment and Plan (1) Seizure: Code(s): R56.9 - Unspecified convulsions Status: Acute Assessment and Plan: Patient's family witnessed the patient having a possible seizure where he was unresponsive, arms were straight out, rigid and shaking, along with associated incontinence and tongue biting. Patient has no history of seizures in the past. Patient was started on Depakote in the emergency room due to his kidney function. He is on seizure precautions at this time EEG was ordered and pending results Neurology's input is greatly appreciated. Will continue monitoring for seizure activity. (2) CVA (cerebrovascular accident): Code(s): I63.9 - Cerebral infarction, unspecified Status: Acute Assessment and Plan: Patient's family said he has been having intermittent confusion and slurred speech which began a couple weeks ago then resolved a few days and then returned about 4 days ago. Yesterday he was back to his baseline without any issues before the possible seizure occurred. CT brain shows subacute small to moderate right frontal lobe infarct. Old small right frontal lobe chronic infarct. Carotid Dopplers have been ordered, MRI brain, echocardiogram for further evaluation workup Patient does have a history of atrial fibrillation and has been taking his Eliquis as prescribed per the patient. He also states he feels when he is in AFib he is not felt palpitations in a while. Continue monitoring on tele currently he is normal sinus rhythm with a heart rate of 87 with some PVCs otherwise no acute abnormality. No AFib. Continue monitoring, neurology consultation and further workup. (3) Normocytic anemia: Code(s): D64.9 - Anemia, unspecified Status: Acute Assessment and Plan: Chronic. Based on prior labs his anemia is stable. His most recent admission did show he had some iron deficiency with % saturation of 11 % as well as anemia of chronic disease from CKD. He states his primary started him on iron tablets daily. He has no signs of acute bleeding at this time. Will continue monitoring H&H and transfuse as needed. (4) CAD (coronary artery disease) of artery bypass graft: Code(s): I25.810 - Atherosclerosis of coronary artery bypass graft(s) without angina pectoris Status: Acute Assessment and Plan: History of CABG, no chest pain or respiratory symptoms at this time. Will continue Plavix. And currently holding his beta-rich due to low blood pressure since the want to allow permissive hypertension due to recent CVA. Will restart tomorrow if blood pressure is improved. (5) CKD stage 4 due to type 1 diabetes mellitus: Code(s): E10.22 - Type 1 diabetes mellitus with diabetic chronic kidney disease; N18.4 - Chronic kidney disease, stage 4 (severe) Status: Acute Assessment and Plan: Stable creatinine on review of prior labs. Will continue his home diuretics. Will not be adding any medications that would be nephrotoxic. Continue monitoring. (6) Atrial fibrillation: Qualifiers: Atrial fibrillation type: unspecified Qualified Code(s): I48.91 - Unspecified atrial fibrillation Code(s): I48.91 - Unspecified atrial fibrillation Status: Chronic Assessment and Plan: He has a normal sinus rhythm at this time on telemetry. Continue Eliquis this morning. (7) Diabetes: Qualifiers: Chronic kidney disease stage: stage 4 (severe) Diabetes mellitus complication detail: with chronic kidney disease Diabetes mellitus complication status: with kidney complications Diabetes mellitus longterm insulin use: with roasterman u
[2020-01-02 11:49] LABS: Glucose Point of Care 159 (65-105)
[2020-01-02] MEDS: POTASSIUM CHLORIDE 20 MEQ TABLET 40 MEQ PO (12:25)
[2020-01-02] MEDS: diphenhydrAMINE HCl CAP 25 MG CAPSULE PO (12:26)
[2020-01-02] MEDS: CLOPIDOGREL BISULFATE 75 MG TABLET PO (13:13)
[2020-01-02] MEDS: FERROUS SULFATE 324 MG TABLET PO (13:13)
--- NOTE | 2020-01-02 15:19 | WPDNEUROPN ---
Progress Note: A&P Assessment and Plan (1) Seizure: Code(s): R56.9 - Unspecified convulsions Status: Acute (2) CVA (cerebrovascular accident): Code(s): I63.9 - Cerebral infarction, unspecified Status: Acute (3) CAD (coronary artery disease) of artery bypass graft: Code(s): I25.810 - Atherosclerosis of coronary artery bypass graft(s) without angina pectoris Status: Acute (4) CKD stage 4 due to type 1 diabetes mellitus: Code(s): E10.22 - Type 1 diabetes mellitus with diabetic chronic kidney disease; N18.4 - Chronic kidney disease, stage 4 (severe) Status: Acute (5) Hypothyroidism: Qualifiers: Hypothyroidism type: unspecified Qualified Code(s): E03.9 - Hypothyroidism, unspecified Code(s): E03.9 - Hypothyroidism, unspecified Status: Chronic (6) COPD (chronic obstructive pulmonary disease): Qualifiers: COPD type: unspecified COPD Qualified Code(s): J44.9 - Chronic obstructive pulmonary disease, unspecified Code(s): J44.9 - Chronic obstructive pulmonary disease, unspecified Status: Chronic (7) Atrial fibrillation: Qualifiers: Atrial fibrillation type: unspecified Qualified Code(s): I48.91 - Unspecified atrial fibrillation Code(s): I48.91 - Unspecified atrial fibrillation Status: Chronic (8) Congestive heart failure: Qualifiers: Heart failure type: unspecified Heart failure chronicity: chronic Qualified Code(s): I50.9 - Heart failure, unspecified Code(s): I50.9 - Heart failure, unspecified Status: Chronic (9) Hypertension: Qualifiers: Hypertension type: unspecified Qualified Code(s): I10 - Essential (primary) hypertension Code(s): I10 - Essential (primary) hypertension Status: Chronic (10) Diabetes: Qualifiers: Diabetes mellitus type: type 2 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: 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 Diabetes mellitus complication status: with kidney complications Diabetes mellitus complication detail: with chronic kidney disease Chronic kidney disease stage: stage 4 (severe) Qualified Code(s): E11.22 - Type 2 diabetes mellitus with diabetic chronic kidney disease; N18.4 - Chronic kidney disease, stage 4 (severe); Z79.4 - MCC (current) use of insulin Code(s): E11.9 - Type 2 diabetes mellitus without complications Status: Chronic (11) Chronic kidney disease: Qualifiers: Chronic kidney disease stage: stage 1 Qualified Code(s): N18.1 - Chronic kidney disease, stage 1 Code(s): N18.9 - Chronic kidney disease, unspecified Status: Chronic (12) Dementia: Code(s): F03.90 - Unspecified dementia without behavioral disturbance Status: Acute Additional Plan I have discussed with the the differential diagnosis of dementia in general since including multi-infarct dementia frontotemporal dementia dementia of Lewy body disease or frontotemporal dementia and have suggested she should follow up after the cognitive testing with the neurologist he had seen before in the meantime I have requested our family advocate colleagues to see if there is any reason to change his Eliquis to an other novel anticoagulation and if if that could be of any benefit given his recurrent stroke which most likely is embolic in nature Review of Systems Review of Systems: All systems reviewed & are unremarkable except as noted in HPI and below Exam Const: General: comfortable and no acute distress HENMT: General nose exam: Normal nares present Mouth: Yes moist mucous membranes Eyes: General: appearance normal, both eyes and all related structures Neck: Neck: supple and no JVD Resp: Effort & Inspection: normal respiratory effort Auscultation: clear to auscultation bilaterally Cardio: Rate: regular rate Rhythm: regular rhythm GI: Auscultation: normal bowel sounds Skin: General skin exam: normal color an
[2020-01-02 16:24] LABS: Glucose Point of Care 111 (65-105)
[2020-01-02] MEDS: MELATONIN 3 MG TABLET PO (20:55)
[2020-01-02] MEDS: TAMSULOSIN HCL 0.4 MG CAPSULE PO (20:55)
[2020-01-02 21:54] LABS: Glucose Point of Care 133 (65-105)
[2020-01-03] VITALS (8 sets, daily range): BP systolic 125–146; BP diastolic 86–90; PULSE 70–105; RESP 14–18; TEMP 36.6–36.9; O2SAT 94–100
[2020-01-03 05:48] LABS: Hematocrit 28.5 % (42.0-52.0); Hemoglobin 8.9 g/dL (14.0-18.0); Mean Corpuscular HGB Conc 31.2 g/dl (32-36); Mean Corpuscular Volume 92.8 fl (80-100); Mean Platelet Volume 10.7 fl (7.4-10.4); Platelet Count Result 128 k/mm3 (150-375); Red Blood Count 3.07 M/mm3 (4.6-6.20); Red Cell Distribution Width 15.3 % (11.5-14.5); White Blood Count 5.6 K/mm3 (4.5-10.0)
[2020-01-03] MEDS: LEVOTHYROXINE SODIUM 125 MCG TABLET PO (05:53)
[2020-01-03 06:06] LABS: Anion Gap 8 mmol/L (8-16); Blood Urea Nitrogen 29 mg/dL (9-20); Calcium 8.8 mg/dL (8.4-10.2); Carbon Dioxide 31 mmol/L (22-30); Chloride 104 mmol/L (98-107); Estimated CRCL calculation 25 ml/min; Estimated Glomerular Filt Rate 19; Glucose 130 mg/dL (75-110); Magnesium 2.3 mg/dL (1.6-2.3); Potassium 3.6 mmol/L (3.4-5.0); Sodium 143 mmol/L (137-145)
[2020-01-03 08:40] LABS: Glucose Point of Care 111 (65-105)
[2020-01-03] MEDS: CLOPIDOGREL BISULFATE 75 MG TABLET PO (08:50)
[2020-01-03] MEDS: FERROUS SULFATE 324 MG TABLET PO (08:50)
[2020-01-03] MEDS: DOCUSATE SODIUM 100 MG CAPSULE PO (08:50)
[2020-01-03] MEDS: PANTOPRAZOLE 40 MG TABLET PO (08:50)
[2020-01-03] MEDS: APIXABAN 5 MG TABLET PO ×2 (08:50→16:38)
[2020-01-03] MEDS: amLODIPine BESYLATE 5 MG TABLET 10 MG PO (08:51)
[2020-01-03] MEDS: ROSUVASTATIN 10 MG TABLET 20 MG PO (08:52)
[2020-01-03] MEDS: METOPROLOL SUCCINATE EXT REL 100 MG TABCR PO (08:53)
[2020-01-03] MEDS: DIVALPROEX SODIUM 250 MG TABEC 500 MG PO ×2 (08:56→16:39)
[2020-01-03] MEDS: DULoxetine HCL 60 MG CAPSULE.DR PO (08:56)
[2020-01-03] MEDS: FUROSEMIDE 40 MG TABLET PO ×2 (08:56→16:39)
[2020-01-03] MEDS: LORATADINE 10 MG TABLET PO (08:56)
[2020-01-03] MEDS: HYDROcodone/acetaminophen (*CRX) 10-325 MG TABLET 1 TAB PO ×3 (08:58→16:42)
--- NOTE | 2020-01-03 09:34 | WPDNEUROLOGY ---
Neurology EEG Report TEST eeg DIAGNOSIS seizuresw CONDITION OF RECORDING awake ,drowsy and sleep EEG NUMBER [id number] CLINICAL HISTORY seizures EEG DESCRIPTION Basic resting occipital frequency consists of moderate amount of poorly organized low voltage 11 to 12 hertz per 2nd alpha admixed with a large amount of low-voltage 15 to 21 hertz per 2nd beta. During drowsiness low-voltage to medium voltage 5 to 7 hertz per 2nd theta activity is seen admixed super imposed by low-voltage beta activity. Bilateral symmetrical sleep spindles are seen during brief periods of sleep. Non paroxysmal. Nonfocal. Nonlateralizing. IMPRESSION No significant abnormalities noted in this tracing which is mainly during drowsiness and also complicated by superimposed muscle artifact clinical correlation recommended.
[2020-01-03] MEDS: diphenhydrAMINE HCl CAP 25 MG CAPSULE PO (11:26)
[2020-01-03 11:40] LABS: Glucose Point of Care 126 (65-105)
--- NOTE | 2020-01-03 12:10 | WPDNEUROPN ---
Progress Note: A&P Assessment and Plan (1) Dementia: Code(s): F03.90 - Unspecified dementia without behavioral disturbance Status: Acute (2) Hyperlipidemia: Code(s): E78.5 - Hyperlipidemia, unspecified Status: Acute (3) Seizure: Code(s): R56.9 - Unspecified convulsions Status: Acute (4) CVA (cerebrovascular accident): Code(s): I63.9 - Cerebral infarction, unspecified Status: Acute Additional Plan considering that he has been admitted to the hospital for the seizure Depakote is a good choice for him because looks like his right frontal lobe is structural lesion and he is unable to take the Keppra he has a neurologists he will follow with discussed thoroughly with his 5 Review of Systems Review of Systems: All systems reviewed & are unremarkable except as noted in HPI and below Exam Narrative: Exam Narrative: neurological examination revealed him to be awake alert cooperative in no obvious acute distress ear nose throat examination normal, heart regular, lungs clear, abdomen is soft, neurological examination revealed him to have no focal motor deficit but definitely with cognitive deficit Objective Data Vital Signs Vital Signs: Vital Signs - 24 hr 01/02/20 14:00 01/02/20 16:00 01/02/20 20:00 Temperature 36.0 C L Pulse Rate 97 97 124 H Respiratory Rate 16 Blood Pressure 106/68 Pulse Oximetry 100 01/02/20 20:51 01/03/20 00:00 01/03/20 04:00 Temperature 36.8 C Pulse Rate 109 H 105 H 72 Respiratory Rate 16 Blood Pressure 151/79 H Pulse Oximetry 92 01/03/20 06:36 01/03/20 08:53 Temperature 36.6 C Pulse Rate 100 85 Respiratory Rate 14 Blood Pressure 146/90 H Pulse Oximetry 94 Intake/Output Intake/Output: Intake & Output 12/31/19 01/01/20 01/02/20 01/03/20 23:59 23:59 23:59 23:59 Intake Total 1040 1090 840 Output Total 600 800 500 Balance 440 290 340 Meds/Results Medications: Active Medications Generic Name Dose Route Start Last Admin Trade Name Freq PRN Reason Stop Dose Admin Hydrocodone Bitart/Acetaminophen 1 tab 01/01/20 09:00 01/03/20 08:58 [place] 10-325 Mg PO 1 tab QID BEN Administration Amlodipine Besylate 10 mg 01/03/20 09:00 01/03/20 08:51 Norvasc PO 10 mg DAILY BEN Administration Apixaban 5 mg 01/02/20 09:00 01/03/20 08:50 Eliquis PO 5 mg BID BEN Administration Clopidogrel Bisulfate 75 mg 01/01/20 11:20 01/03/20 08:50 Plavix PO 75 mg DAILY BEN Administration Dextrose 12.5 gm 01/01/20 15:33 Dextrose 50% Syringe IV PUSH PRN PRN Hypoglycemia Protocol Diphenhydramine HCl 25 mg 01/01/20 11:17 01/03/20 11:26 Benadryl Cap PO 25 mg Q6H PRN Administration Itching Divalproex Sodium 500 mg 01/01/20 09:00 01/03/20 08:56 Depakote Ec Tab PO 500 mg BIDWM BEN Administration Docusate Sodium 100 mg 01/01/20 09:00 01/03/20 08:50 Colace Capsule PO 100 mg DAILY BEN Administration Duloxetine HCl 60 mg 01/01/20 09:00 01/03/20 08:56 Cymbalta PO 60 mg DAILY BEN Administration Ferrous Sulfate 324 mg 01/01/20 11:20 01/03/20 08:50 Ferrous Sulfate PO 324 mg DAILY BEN Administration Furosemide 40 mg 01/01/20 09:00 01/03/20 08:56 Lasix Tablet PO 40 mg BID BEN Administration Glucagon 1 mg 01/01/20 15:33 Glucagon For Inj IM PRN PRN Hypoglycemia Protocol Glucose 15 gm 01/01/20 15:33 Glutose 15 PO PRN PRN Hypoglycemia Protocol Dextrose 1,000 mls @ 100 mls/hr 01/01/20 15:33 Dextrose 5% 1,000 Ml IVPB PRN PRN Hypoglycemia Protocol Insulin Aspart 3 - 6 units 01/01/20 17:00 01/03/20 11:48 Novolog SUB-Q Not Given TIDWM [facility] Protocol Levothyroxine Sodium 125 mcg 01/01/20 08:55 01/03/20 05:53 Synthroid PO 125 mcg DAILY@0630 BEN Administration Loratadine 10 mg 01/01/20 09:00 01/03/20 08:56 Claritin
[2020-01-03 16:32] LABS: Glucose Point of Care 113 (65-105)
--- NOTE | 2020-01-03 16:40 | PM.DS ---
DS: Admitting Diagnosis Admitting Diagnosis Admitting Diagnosis: new onset seizure, subacute infarct DS: Discharge Diagnosis Discharge Diagnosis (1) Seizure: Code(s): R56.9 - Unspecified convulsions Status: Acute Assessment and Plan: Patient's family witnessed the patient having a possible seizure where he was unresponsive, arms were straight out, rigid and shaking, along with associated incontinence and tongue biting. Patient has no history of seizures in the past. Patient was started on Depakote in the emergency room due to his kidney function. He is on seizure precautions at this time EEG was ordered and shows no acute signs of seizure activity. Neurology agrees with the plan to continue on Depakote, monitor platelets and LFT levels, and have him follow-up with his neurologist at [facility] or he can follow-up with our neurologist that saw him here. The patient and significant other understand agree with the plan all questions answered. (2) CVA (cerebrovascular accident): Code(s): I63.9 - Cerebral infarction, unspecified Status: Acute Assessment and Plan: Patient's family said he has been having intermittent confusion and slurred speech which began a couple weeks ago then resolved a few days and then returned about 4 days ago. Yesterday he was back to his baseline without any issues before the possible seizure occurred. CT brain shows subacute small to moderate right frontal lobe infarct. Old small right frontal lobe chronic infarct. Carotid Dopplers less than 50% bilateral stenosis. MRI brain showed subacute right frontal infarct and 3 old frontal infarcts. Echocardiogram showed left systolic EF of 60-65%. Mild aortic valve stenosis. Patient does have a history of atrial fibrillation will continue Eliquis and Plavix. Continue monitoring on tele currently he is normal sinus rhythm with a heart rate of 70 with some PVCs otherwise no acute abnormality. He was in AFib last night but converted with his metoprolol. Neurology was concerned that his strokes may be associated with embolisms from his atrial fibrillation. All 4 of his strokes have now been in the right frontal lobe so this is low likelihood. Cardiology was consulted and they recommended no adjustments to his medications and continue Eliquis and Plavix. 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 (3) Normocytic anemia: Code(s): D64.9 - Anemia, unspecified Status: Acute Assessment and Plan: Chronic. Based on prior labs his anemia is stable. His most recent admission did show he had some iron deficiency with % saturation of 11 % as well as anemia of chronic disease from CKD. He states his primary started him on iron tablets daily. He has no signs of acute bleeding at this time. (4) CAD (coronary artery disease) of artery bypass graft: Code(s): I25.810 - Atherosclerosis of coronary artery bypass graft(s) without angina pectoris Status: Acute Assessment and Plan: History of CABG, no chest pain or respiratory symptoms at this time. Will continue Plavix. Continue home medications. (5) CKD stage 4 due to type 1 diabetes mellitus: Code(s): E10.22 - Type 1 diabetes mellitus with diabetic chronic kidney disease; N18.4 - Chronic kidney disease, stage 4 (severe) Status: Acute Assessment and Plan: Stable creatinine on review of prior labs. Will continue his home diuretics. (6) Atrial fibrillation: Qualifiers: Atrial fibrillation type: unspecified Qualified Code(s): I48.91 - Unspecified atrial fibrillation Code(s): I48.91 - Unspecified atrial fibrillation
== END 2020-01-03 17:00 | disposition home health service (06) | DRG 100 ==
LOC: ANHED 04:16 → ANH3MED 06:24
PROVIDERS: Admitting Provider Internal Medicine; Emergency Provider General Practice; PCP Nurse Practitioner Family; Visit Provider Physician Assistant
DX: R56.9 Unspecified convulsions (principal); I63.9 Cerebral infarction, unspecified; I25.810 Atherosclerosis of coronary artery bypass graft(s) without angina pectoris; I13.0 Hypertensive heart and chronic kidney disease with heart failure and stage 1 through stage 4 chronic kidney disease, or unspecified chronic kidney disease; N18.4 Chronic kidney disease, stage 4 (severe); I50.32 Chronic diastolic (congestive) heart failure; D63.1 Anemia in chronic kidney disease; R47.81 Slurred speech; F03.90 Unspecified dementia, unspecified severity, without behavioral disturbance, psychotic disturbance, mood disturbance, and anxiety; E10.22 Type 1 diabetes mellitus with diabetic chronic kidney disease; I48.91 Unspecified atrial fibrillation; J44.9 Chronic obstructive pulmonary disease, unspecified; E78.5 Hyperlipidemia, unspecified; R30.0 Dysuria; E03.9 Hypothyroidism, unspecified; E61.1 Iron deficiency; Z79.01 Long term (current) use of anticoagulants; Z79.4 Long term (current) use of insulin; Z88.0 Allergy status to penicillin; Z87.891 Personal history of nicotine dependence; Z95.1 Presence of aortocoronary bypass graft
CPT/HCPCS: 36415; 70450; 70551; 80048; 80053; 80061; 81001; 83036; 83735; 85025; 85027; 85610; 85730; 93005; 93306; 93880; 95816; 96374; 96375; 97110; 97116; 97161; 97165; 99285; A9270; G0378; Q9957

== ENCOUNTER 2020-01-07 12:25 | Observation (INO) | payer MEDICARE, MEDICAID, SELFPAY ==
[2020-01-07] VITALS (25 sets, daily range): BP systolic 105–158; BP diastolic 61–87; PULSE 61–71; RESP 12–18; TEMP 36.5; O2SAT 91–99; BMI 28.0
--- NOTE | ~2020-01-07 | CT_ITS ---
EXAMINATION: CT brain wo con DATE: 01/07/2020 13:22 INDICATION: Multiple falls. Altered mental status. Hallucinations. TECHNIQUE: Computed tomography (CT) of the head was performed without intravenous contrast. The mA wa s adjusted according to patient size. Iterative reconstruction technique was employed. Exam dose: 60 5.33 mGy-cm total exam DLP. COMPARISON: 01/01/2020 MRI brain/brainstem 11/12/2019 CT brain FINDINGS: There is new encephalomalacia in the right frontotemporal parietal area since 11/12/2019, co nsistent with recent infarct within the right middle cerebral artery territory. Chronic focal posterior right parietal cerebrovascular infarct, stable since 11/12/2019. Cerebral atherosclerosis and chronic small vessel ischemic changes of the cerebral white matter. No intracranial mass lesion or hemorrhage, midline shift or mass effect. No subdural or epidural hematoma. No fracture or bone destruction of the cranial vault. There are a few opacified lower right mastoid air cells but the mastoid air cells otherwise are sharron lly developed and aerated. Included paranasal sinuses are unremarkable. IMPRESSION: Subacute right frontotemporal parietal infarct, new since 11/12/2019 Reviewed, dictated and finalized at [facility] Reviewed, dictated and finalized at [facility]. IMPRESSION: Subacute right frontotemporal parietal infarct, new since 0
--- NOTE | 2020-01-07 12:31 | ECG_ITS ---
Measurements Intervals [place] Rate: 63 P: 36 [place]: 178 QRS: 38 QRSD: 106 T: 97 QT: 420 QTc: 431 Interpretive Statements SINUS RHYTHM BORDERLINE ST-T WAVE ABNORMALITY- HIGH LATERAL LEADS BASELINE ARTIFACT- I, II, III, AVR, AVL, AVF BORDERLINE ECG Electronically Signed On 01-07-2020 12:37:40 CDT by Deondre Wise D.O.
[2020-01-07 12:59] LABS: Basophils Percent Auto 0.2 % (0.2-1.2); Eosinophils Absolute Auto 0.2 K/mm3 (0-0.3); Eosinophils Percent Auto 3.2 % (0-4.4); Hematocrit 33.3 % (42.0-52.0); Hemoglobin 10.7 g/dL (14.0-18.0); Immature Granulocyte Absolute 0.04 K/mm3 (0.00-0.031); Immature Granulocyte Percent A 0.6 % (0-0.5); Lymphocytes Absolute Auto 1.27 K/mm3 (0.9-3.2); Lymphocytes Percent Auto 19.2 % (18.3-44.2); Mean Corpuscular HGB Conc 32.1 g/dl (32-36); Mean Corpuscular Hemoglobin 29.2 pg (26-34); Mean Platelet Volume 11.2 fl (7.4-10.4); Monocytes Absolute Auto 0.5 K/mm3 (0.1-0.6); Monocytes Percent Auto 7.3 % (2.6-8.5); Neutrophils Absolute Auto 4.6 K/mm3 (1.3-6.7); Neutrophils Percent Auto 69.5 % (45.5-73.1); Platelet Count Result 149 k/mm3 (150-375); Red Blood Count 3.66 M/mm3 (4.6-6.20); Red Cell Distribution Width 14.8 % (11.5-14.5); White Blood Count 6.6 K/mm3 (4.5-10.0)
[2020-01-07 13:04] LABS: Alanine Aminotransferase 15 U/L (4-50); Albumin Level 4.7 g/dL (3.5-5.1); Alkaline Phosphatase 170 U/L (38-126); Anion Gap 13 mmol/L (8-16); Aspartate Amino Transferase 32 U/L (17-59); Bilirubin,Total 0.6 mg/dL (0.2-1.3); Blood Urea Nitrogen 31 mg/dL (9-20); Calcium 9.6 mg/dL (8.4-10.2); Carbon Dioxide 29 mmol/L (22-30); Chloride 102 mmol/L (98-107); Estimated CRCL calculation 26 ml/min; Estimated Glomerular Filt Rate 19; Glucose 180 mg/dL (75-110); Potassium 3.6 mmol/L (3.4-5.0); Sodium 144 mmol/L (137-145)
[2020-01-07 13:21] LABS: Valproic Acid 57.1 ug/mL (50-120)
--- NOTE | 2020-01-07 14:11 | PC.NURSE ---
Patient attempted x2 to urinate. Unable to get sample at this time. Patient refusing straight cath at this time.
[2020-01-07 14:59] LABS: Add Urine Microscopic? YES; Appearance Urine Clear (Clear); Bacteria Urine Trace /hpf; Bilirubin Urine Negative (Negative); Blood Urine Negative (Negative); Color Urine Yellow (Yellow); Glucose Urine UA Negative (Negative); Ketones Urine Negative (Negative); Leukocyte Esterase Ur Negative LEU/UL (Negative); Mucus Urine Rare /lpf; Nitrate Urine Negative (Negative); Protein Urine 2+ mg/dL (Negative); RBC Urine 0-2 /hpf (0-2); Specific Grav Ur 1.011 (1.001-1.035); Urobilinogen Urine Negative mg/dL (<2.0); WBC Urine 0-3 /hpf
--- NOTE | 2020-01-07 16:06 | ED.AMS ---
HPI - Altered Mental Status General Chief Complaint: Altered Mental Status Stated Complaint: ams again Time Seen by Provider: 01/07/20 12:35 Source: patient and family Mode of arrival: EMS Limitations: no limitations History of Present Illness HPI narrative: 59-year-old with a history of hypertension and diabetes, recent history of CVA and seizures was brought in from home with complaints of altered mental status, unable to sleep for last 36 hours. As per the patient's from the time of discharge from the hospital which is 4 days ago he has been hallucinating and is unable to sleep. Patient also reports that he fell this morning at 1030. No history of loss of consciousness. Patient denies any chest pain or shortness of breath. MD complaint: altered mental status and confusion Onset (ago): day(s) (3) Timing confirmed by: spouse Severity: moderate Consistency of symptoms: waxing and waning Associated symptoms: denies other symptoms Related Data Home Medications Medication Instructions Recorded Confirmed Eliquis 5 mg PO BID 11/12/19 01/01/20 amlodipine 10 mg PO DAILY 11/12/19 01/01/20 clopidogrel 75 mg PO DAILY 11/12/19 01/01/20 loratadine 10 mg PO DAILY 11/12/19 01/01/20 metoprolol succinate 100 mg PO DAILY 11/12/19 01/01/20 rosuvastatin 20 mg PO DAILY 11/12/19 01/01/20 tamsulosin 0.4 mg PO HS 11/12/19 01/01/20 duloxetine 60 mg PO DAILY 11/13/19 01/01/20 pantoprazole 40 mg PO DAILY 11/13/19 01/01/20 Repatha SureClick 140 mg SUBCUT 2XW 01/01/20 01/01/20 docusate sodium 100 mg PO DAILY 01/01/20 01/01/20 ferrous sulfate [Iron (ferrous 325 mg PO DAILY 01/01/20 01/01/20 sulfate)] furosemide 40 mg PO BID 01/01/20 01/01/20 hydrocodone-acetaminophen 1 tablet PO QID 01/01/20 01/01/20 insulin aspart U-100 [Novolog 1 sliding scale dose SUBCUT DAILY 01/01/20 01/01/20 U-100 Insulin aspart] levothyroxine 125 mcg PO DAILY 01/01/20 01/01/20 Allergies Allergy/AdvReac Type Severity Reaction Status Date / Time Penicillins Allergy Unknown Unknown Verified 01/01/20 05:59 tramadol Allergy Unknown Verified 01/07/20 12:43 Review of Systems Review of Systems: All systems reviewed & are unremarkable except as noted in HPI and below Constitutional: Constitutional: Reports no additional constitutional complaints Eyes: Eyes: Reports as per HPI ENT: Reports as per HPI Cardiovascular: Cardiovascular: Reports no additional cardiovascular complaints Respiratory: Respiratory: Reports no additional respiratory complaints Gastrointestinal: Gastrointestinal: Reports no additional gastrointestinal complaints Musculoskeletal: Musculoskeletal: Reports no additional musculoskeletal complaints Psychiatric: Psychiatric: Reports no additional psychiatric complaints Endocrine: Endocrine: Reports no additional endocrine complaints [facility] Past Medical History Medical History Atrial fibrillation 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tructive pulmonary disease) Deficient knowledge of open reduction and internal (ORIF) fixation of hip Left on 11/14/2019 Dementia Diabetes Endocarditis Hyperlipidemia Hypertension Hypothyroidism Surgical History Surgical History S/P CABG x 1 Family History Family History Father Family history of liver disease Mother Family history of heart disease in male family member before age 55 Sibling Acute myocardial infarction Social History Social History Years smoked: 30 Smoking status: Former smoker Tobacco type: cigarettes Second hand tobacco smoke exposure: Yes Alcohol intake: never Substance use: never Substance use type: does not use Additional living arrangements comments: Lives in [place], [place] with Christiana [employer] other
--- NOTE | 2020-01-07 17:00 | PM.IMHP ---
H&P: HPI History of Present Illness Date/Time: 01/07/20 17:00 Chief complaint: altered mental status Narrative: Dustin Angel is a 59 year old male Who has a history of hypertension, diabetes type 2. A recent CVA. Patient was discharged from the hospital on the 4th of this month. Patient was found to have a subacute small to moderate right frontal lobe infarction and small old right frontal lobe chronic infarction. The patient was seen by neurology at that time. Patient was also found to have a new onset of seizure activity was placed on Depakote. According to his significant on the patient has been hallucinating and seeing bugs and has not been sleeping for the last 36 hours. The patient starts to doze off and then jumps. But no seizure activity was noted. Patient's Depakote level was within normal limits today. CT of the brain today it does shows the acute infarction that he had that was present on his last admission.His EKG was read as sinus rhythm today. His significant other is at the bedside answering questions for him. The patient is picking at things in the air. The patient appears to be falling asleep but then losartan jerk and wake back up. The significant other said that he fell 2 times a couple days ago and he hit his right eye and then he fell again today in which she was having difficulty getting him off the floor. The significant other stated that she can no longer take care of him at home at this point because of the hallucinations. Patient was given Tylenol in the emergency room and Zofran. The significant other said that she tried to give him Benadryl to help him sleep which had the opposite affect and made him more restless. Patient's creatinine is 3.3 which is his baseline. Patient does have a history of having diabetes type 2 and significant other stated that his blood sugars were within normal limits. Today his blood sugar was 180. Depakote level was therapeutic. It was noted to be 57.1. Date of service 01/07/2020 Review of Systems Review of Systems: All systems reviewed & are unremarkable except as noted in HPI and below Constitutional: Constitutional: Reports as per HPI and Reports no additional constitutional complaints Eyes: Eyes: Reports as per HPI and Reports no additional eye complaints ENT: Reports system reviewed and no additional complaints, except as documented and Reports Normal hearing present Cardiovascular: Cardiovascular: Reports no additional cardiovascular complaints Respiratory: Respiratory: Reports no additional respiratory complaints and Reports no additional respiratory complaints Gastrointestinal: Gastrointestinal: Reports as per HPI and Reports no additional gastrointestinal complaints Musculoskeletal: Musculoskeletal: Reports no additional musculoskeletal complaints Integumentary/Breasts: Skin/Breast: Reports system reviewed and no additional complaints, except as docu and Reports as per HPI Neurologic: Reports system reviewed and no additional complaints, except as documented, Reports as per HPI and Reports Normal hearing present Psychiatric: Psychiatric: Reports no additional psychiatric complaints and Reports as per HPI Endocrine: Endocrine: Reports no additional endocrine complaints Hematologic/Lymphatic: Hematologic/Lymphatic: Reports no additional hematologic/lymphatic complaints Allergic/Immunologic: Allergic/Immunologic: Reports no additional allergic/immunologic complaints [facility] Past Medical History Medical History Atrial fibrillation CKD (chronic kidney disease) stage 4, GFR 15-29 ml/min Congestive heart failure COPD (chronic obstructive pulmonary disease) Deficient knowledge of open reduction and internal (ORIF) fixation of hip Left on 11/14/2019 Dementia Diabetes Endocarditis Hyperlipidemia Hypertension Hypothyroidism S/P ORIF (open reduction internal fixation) fracture left hip Surgical History [facility]
[2020-01-07 18:37] LABS: Glucose Point of Care 124 (65-105)
[2020-01-07] MEDS: SODIUM CHLORIDE 0.9% IV 1,000 ML 75 ML IV CONT (18:38)
[2020-01-07 18:58] LABS: Alveolar/Arterial O2 Gradient 37.4 mmHg; Base Excess ABG -1.3 mEq/l (+/-2.0); Fractional Inspired Oxygen 21 %; HCO3 ABG 22.7 mEq/l (22.0-26.0); Oxygen Content ABG 15.2 %vol (16.0-22.0); Oxygen Saturation ABG 94.5 % (95.0-100.0); Oxyhemoglobin 91.6 % THb (90.0-100.0); PCO2 ABG 35.6 mmHg (35.0-45.0); PO2 ABG 69.7 mmHg (80.0-100.0); PO2 FiO2 Ratio Arterial Blood 3.32 %; Total Hemoglobin 11.8 g/dL (12.0-18.0); pH ABG 7.423 (7.350-7.450)
[2020-01-07 19:01] LABS: Device ROOM AIR; Modified Allen's Test Pass; Site Drawn RIGHT RADIAL
[2020-01-07] MEDS: MELATONIN 3 MG TABLET PO (20:20)
[2020-01-07] MEDS: TAMSULOSIN HCL 0.4 MG CAPSULE PO (20:20)
[2020-01-07 22:56] LABS: Glucose Point of Care 127 (65-105)
[2020-01-08] VITALS (9 sets, daily range): BP systolic 133–151; BP diastolic 67–70; PULSE 64–78; RESP 16–18; TEMP 36.4–36.8; O2SAT 97–99
[2020-01-08] MEDS: LEVOTHYROXINE SODIUM 125 MCG TABLET PO (05:31)
[2020-01-08 05:38] LABS: Glucose Point of Care 94 (65-105)
[2020-01-08 06:05] LABS: Basophils Percent Auto 0.2 % (0.2-1.2); Eosinophils Absolute Auto 0.2 K/mm3 (0-0.3); Eosinophils Percent Auto 3.7 % (0-4.4); Immature Granulocyte Absolute 0.04 K/mm3 (0.00-0.031); Immature Granulocyte Percent A 0.7 % (0-0.5); Lymphocytes Absolute Auto 1.27 K/mm3 (0.9-3.2); Lymphocytes Percent Auto 23.4 % (18.3-44.2); Mean Corpuscular HGB Conc 31.3 g/dl (32-36); Mean Corpuscular Hemoglobin 28.8 pg (26-34); Mean Corpuscular Volume 92.2 fl (80-100); Mean Platelet Volume 10.6 fl (7.4-10.4); Monocytes Absolute Auto 0.5 K/mm3 (0.1-0.6); Monocytes Percent Auto 9.6 % (2.6-8.5); Neutrophils Absolute Auto 3.4 K/mm3 (1.3-6.7); Neutrophils Percent Auto 62.4 % (45.5-73.1); Platelet Count Result 138 k/mm3 (150-375); Red Blood Count 3.47 M/mm3 (4.6-6.20); Red Cell Distribution Width 14.6 % (11.5-14.5); White Blood Count 5.4 K/mm3 (4.5-10.0)
[2020-01-08 06:34] LABS: Alanine Aminotransferase 13 U/L (4-50); Albumin Level 4.1 g/dL (3.5-5.1); Alkaline Phosphatase 152 U/L (38-126); Anion Gap 12 mmol/L (8-16); Aspartate Amino Transferase 23 U/L (17-59); Bilirubin,Total 0.6 mg/dL (0.2-1.3); Blood Urea Nitrogen 27 mg/dL (9-20); Calcium 9.4 mg/dL (8.4-10.2); Carbon Dioxide 28 mmol/L (22-30); Chloride 106 mmol/L (98-107); Estimated CRCL calculation 25 ml/min; Estimated Glomerular Filt Rate 19; Glucose 103 mg/dL (75-110); Magnesium 2.4 mg/dL (1.6-2.3); Potassium 3.6 mmol/L (3.4-5.0); Sodium 146 mmol/L (137-145)
[2020-01-08 07:57] LABS: Glucose Point of Care 108 (65-105)
[2020-01-08] MEDS: SODIUM CHLORIDE 0.9% IV 1,000 ML 75 ML IV CONT (09:35)
[2020-01-08] MEDS: APIXABAN 5 MG TABLET PO ×2 (09:41→17:32)
[2020-01-08] MEDS: METOPROLOL SUCCINATE EXT REL 100 MG TABCR PO (09:41)
[2020-01-08] MEDS: ROSUVASTATIN 10 MG TABLET 20 MG PO (09:41)
[2020-01-08] MEDS: LORATADINE 10 MG TABLET PO (09:41)
[2020-01-08] MEDS: PANTOPRAZOLE 40 MG TABLET PO (09:41)
[2020-01-08] MEDS: CLOPIDOGREL BISULFATE 75 MG TABLET PO (09:41)
[2020-01-08] MEDS: FUROSEMIDE 40 MG TABLET PO ×2 (09:42→17:32)
[2020-01-08] MEDS: amLODIPine BESYLATE 5 MG TABLET 10 MG PO (09:42)
[2020-01-08] MEDS: DIVALPROEX SODIUM 250 MG TABEC 500 MG PO ×2 (09:42→17:31)
[2020-01-08] MEDS: FERROUS SULFATE 324 MG TABLET PO (09:42)
[2020-01-08] MEDS: DOCUSATE SODIUM 100 MG CAPSULE PO (09:42)
[2020-01-08] MEDS: DULoxetine HCL 60 MG CAPSULE.DR PO (10:47)
[2020-01-08 11:51] LABS: Thyroid Stimulating Hormone Reflex 0.471 uIU/mL (0.465-4.68)
[2020-01-08 12:26] LABS: Glucose Point of Care 171 (65-105)
--- NOTE | 2020-01-08 12:38 | WPDNEURCNPN ---
Assessment and Plan Assessment and plan (1) Hallucinations: Code(s): R44.3 - Hallucinations, unspecified Status: Acute (2) CKD (chronic kidney disease) stage 4, GFR 15-29 ml/min: Code(s): N18.4 - Chronic kidney disease, stage 4 (severe) Status: Chronic (3) Dementia: Code(s): F03.90 - Unspecified dementia without behavioral disturbance Status: Acute (4) Seizure: Code(s): R56.9 - Unspecified convulsions Status: Acute (5) Atrial fibrillation: Qualifiers: Atrial fibrillation type: unspecified Qualified Code(s): I48.91 - Unspecified atrial fibrillation Code(s): I48.91 - Unspecified atrial fibrillation Status: Chronic Additional Plan CONSIDERING THE RECURRENCES SYMPTOM PATIENT HAS ALREADY BEEN STARTED ON APIXABAN IN ADDITION TO THE ASPIRIN EVEN THOUGH ECHOCARDIOGRAM AT THIS STAGE IS NOT CHANGED WE WILL ALSO CONTINUE HIM ON DEPAKOTE BECAUSE OF THE POSSIBILITY OF THE FRONTAL LOBE SEIZURE WILL CHECK THE DEPAKOTE LEVELS AND ALSO CONSIDER THE POSSIBILITY OF ADDING LITHIUM BECAUSE OF THE SLEEP ABNORMALITIES Consult date: 01/08/20 Time Seen: 12:15 HPI: Dustin Angel is a 59 year old male 59 YEARS OLD [facility]ITTED TO [facility] WITH THE COMPLAINT OF NEW ONSET OF SEIZURE, IN ADDITION TO THE HISTORY OF HYPERTENSION, TYPE 2 DIABETES MELLITUS, MODERATE RIGHT FRONTAL LOBE INFARCTION IN ADDITION TO OLD RIGHT FRONTAL LOBE CHRONIC INFARCTION. HE WAS STARTED ON DEPAKOTE BUT PER THE SIGNIFICANT OTHER HAS BEEN HALLUCINATING SEEING BERKS OVER THE LAST [address] SCAN DOCUMENTED THE PREVIOUS FINDING AND SIGNIFICANT OTHER MADE THE STATEMENT THAT SHE WILL BE UNABLE TO TAKE CARE OF HIM AT HOME. ROUTINE LAB REVEALED SERUM CREATININE OF 2.40 ESTIMATED GFR OF ONLY 19 TSH OF 0.[address] SCAN DOCUMENTED SUBACUTE RIGHT FRONTAL TEMPORAL PARIETAL INFARCT WHICH IS NEW SINCE NOVEMBER 12, 2019 THE ECHOCARDIOGRAM ON PREVIOUS HOSPITALIZATION WAS WITH MILD AORTIC VALVE STENOSIS, PATIENT IS RECEIVING DIABETIC TREATMENT ALONG WITH CLOPIDOGREL 75 MG DAILY AND HAS ALSO BEEN STARTED ON APIXABAN Review of Systems Review of Systems: All systems reviewed & are unremarkable except as noted in HPI and below [facility] Past Medical History Medical History Atrial fibrillation CKD (chronic kidney disease) stage 4, GFR 15-29 ml/min Congestive heart failure COPD (chronic obstructive pulmonary disease) Deficient knowledge of open reduction and internal (ORIF) fixation of hip Left on 11/14/2019 Dementia Diabetes Endocarditis Hyperlipidemia Hypertension Hypothyroidism S/P ORIF (open reduction internal fixation) fracture left hip Surgical History Surgical History H/O aortic valve replacement with porcine valve PIg valve H/O mitral valve repair S/P CABG x 1 S/P peripheral artery angioplasty with stent placement a total of 7 stents between both of his legs. Family History Family History Father Family history of liver disease Mother Family history of heart disease in male family member before age 55 Sibling Acute myocardial infarction Social History Social History (Updated 01/07/20 @ 17:22 by Celine Martines NP) Social History: The patient is on disability. 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 He lives with his significant other Yajaira. She is a durable power personal injury attorney for healthcare. He desires to be a full code. He has 3 children. This significant other states that he does not use any alcohol or illicit drugs. He is a former smoker. Years smoked: 30 Smoking status: Former smoker Tobacco type: cigarettes Second hand tobacco smoke exposure: Yes Alcohol intake: never Substance use: never Substance use type: does not use Living arrangements: with family Additional living arrangements
[2020-01-08 16:16] LABS: Amphetamine Screen Urine Negative (Negative); Barbiturate Screen Urine Negative (Negative); Benzodiazepines Screen Urine Negative (Negative); Cannabinoid Screen Urine Negative (Negative); Cocaine Screen Urine Negative (Negative); Methadone Screen Urine Negative (Negative); Opiate Screen Urine Positive (Negative); Phencyclidine Screen Urine Negative (Negative)
--- NOTE | 2020-01-08 16:34 | PM.IMPN ---
Progress Note: A&P Assessment and Plan (1) Altered mental status: Code(s): R41.82 - Altered mental status, unspecified Status: Acute Assessment and Plan: The patient's notes that he is confused at baseline but his confusion worsened in the past several days. CT brain was performed and was unchanged from most recent cerebral imaging 01/01/20 showing subacute right frontal lobe infarction, new since 11/12/19. Will check ammonia, vitamin B12, folate. TSH is normal. He reported not sleeping since Friday and may have sleep deprivation. Depakote level was normal. Neurology is on board. Management per neurology who recommends continuing depakote and possible addition of lithium. Continue to monitor. Await further neurology recommendations. (2) Hallucinations: Code(s): R44.3 - Hallucinations, unspecified Status: Acute Assessment and Plan: Etiology unclear. He may be experiencing delirium due to lack of sleep since Wednesday 01/03. He slept well overnight and already feels better today. Continue ativan PRN. Neurology is on board. Management per neurology. (3) Seizure: Code(s): R56.9 - Unspecified convulsions Status: Acute Assessment and Plan: He had a witnessed seizure which prompted his previous admission to the hospital. He was seen by neurology and started on depakote. Depakote level is normal at 57.1. Continue seizure precautions. Management per neurology. (4) Hypertension: Qualifiers: Hypertension type: unspecified Qualified Code(s): I10 - Essential (primary) hypertension Code(s): I10 - Essential (primary) hypertension Status: Chronic Assessment and Plan: Blood pressures were reviewed and are reasonably controlled. Continue amlodipine, metoprolol, and furosemide. Continue to monitor and adjust treatment as indicated. (5) Diabetes: Qualifiers: Chronic kidney disease stage: stage 4 (severe) Diabetes mellitus complication detail: with chronic kidney disease Diabetes mellitus complication status: with kidney complications Diabetes mellitus long term care phlebotomist insulin use: with long term care phlebotomist use Diabetes mellitus type: type 2 Qualified Code(s): E11.22 - Type 2 diabetes mellitus with diabetic chronic kidney disease; N18.4 - Chronic kidney disease, stage 4 (severe); Z79.4 - long term care phlebotomist (current) use of insulin Code(s): E11.9 - Type 2 diabetes mellitus without complications Status: Chronic Assessment and Plan: Blood sugars are at target. Continue ACHS glucose monitoring, sliding scale insulin, and hypoglycemia protocol. (6) Hyperlipidemia: Code(s): E78.5 - Hyperlipidemia, unspecified Status: Acute Assessment and Plan: Continue rosuvastatin and repatha. (7) Hypothyroidism: Qualifiers: Hypothyroidism type: unspecified Qualified Code(s): E03.9 - Hypothyroidism, unspecified Code(s): E03.9 - Hypothyroidism, unspecified Status: Chronic Assessment and Plan: TSH 0.471. Continue levothyroxine. (8) COPD (chronic obstructive pulmonary disease): Qualifiers: COPD type: unspecified COPD Qualified Code(s): J44.9 - Chronic obstructive pulmonary disease, unspecified Code(s): J44.9 - Chronic obstructive pulmonary disease, unspecified Status: Chronic Assessment and Plan: Chronic with no acute exacerbation. Add albuterol as needed. (9) Atrial fibrillation: Qualifiers: Atrial fibrillation type: unspecified Qualified Code(s): I48.91 - Unspecified atrial fibrillation Code(s): I48.91 - Unspecified atrial fibrillation Status: Chronic Assessment and Plan: Chronic. He is in sinus rhythm. Continue metoprolol and eliquis. (10) Normocytic anemia: Code(s): D64.9 - Anemia, unspecified Status: Acute Assessment and Plan: H&H are improved on review of prior labs. Anemia is lik
[2020-01-08 17:21] LABS: Glucose Point of Care 124 (65-105)
[2020-01-08] MEDS: LORazepam INJ (*CRX) 2 MG/ML VIAL 0.5 MG IV PUSH (21:17)
[2020-01-08] MEDS: MELATONIN 3 MG TABLET PO (21:19)
[2020-01-08] MEDS: TAMSULOSIN HCL 0.4 MG CAPSULE PO (21:19)
[2020-01-08 21:26] LABS: Glucose Point of Care 168 (65-105)
[2020-01-09] VITALS (10 sets, daily range): BP systolic 137–156; BP diastolic 64–87; PULSE 62–80; RESP 16–20; TEMP 36.1–36.8; O2SAT 97–100
[2020-01-09 05:16] LABS: Ammonia < 9 umol/L (9-30)
[2020-01-09 05:34] LABS: Hematocrit 29.6 % (42.0-52.0); Hemoglobin 9.2 g/dL (14.0-18.0); Mean Corpuscular HGB Conc 31.1 g/dl (32-36); Mean Corpuscular Volume 90.2 fl (80-100); Mean Platelet Volume 11.1 fl (7.4-10.4); Platelet Count Result 136 k/mm3 (150-375); Red Blood Count 3.28 M/mm3 (4.6-6.20); Red Cell Distribution Width 14.6 % (11.5-14.5); White Blood Count 5.3 K/mm3 (4.5-10.0)
[2020-01-09 05:58] LABS: Alanine Aminotransferase 13 U/L (4-50); Albumin Level 3.8 g/dL (3.5-5.1); Alkaline Phosphatase 143 U/L (38-126); Anion Gap 11 mmol/L (8-16); Aspartate Amino Transferase 23 U/L (17-59); Bilirubin,Total 0.4 mg/dL (0.2-1.3); Blood Urea Nitrogen 23 mg/dL (9-20); Calcium 9.1 mg/dL (8.4-10.2); Carbon Dioxide 27 mmol/L (22-30); Chloride 106 mmol/L (98-107); Estimated CRCL calculation 28 ml/min; Estimated Glomerular Filt Rate 22; Glucose 111 mg/dL (75-110); Magnesium 2.3 mg/dL (1.6-2.3); Potassium 2.9 mmol/L (3.4-5.0); Sodium 144 mmol/L (137-145)
[2020-01-09] MEDS: LEVOTHYROXINE SODIUM 125 MCG TABLET PO (06:50)
[2020-01-09 07:04] LABS: Folic Acid 19.4 ng/mL (2.76->20)
[2020-01-09 08:08] LABS: Glucose Point of Care 119 (65-105)
[2020-01-09] MEDS: amLODIPine BESYLATE 5 MG TABLET 10 MG PO (08:24)
[2020-01-09] MEDS: APIXABAN 5 MG TABLET PO ×2 (08:24→16:46)
[2020-01-09] MEDS: METOPROLOL SUCCINATE EXT REL 100 MG TABCR PO (08:24)
[2020-01-09] MEDS: LORATADINE 10 MG TABLET PO (08:24)
[2020-01-09] MEDS: PANTOPRAZOLE 40 MG TABLET PO (08:24)
[2020-01-09] MEDS: CLOPIDOGREL BISULFATE 75 MG TABLET PO (08:24)
[2020-01-09] MEDS: DULoxetine HCL 60 MG CAPSULE.DR PO (08:24)
[2020-01-09] MEDS: FERROUS SULFATE 324 MG TABLET PO (08:24)
[2020-01-09] MEDS: FUROSEMIDE 40 MG TABLET PO ×2 (08:24→16:46)
[2020-01-09] MEDS: DIVALPROEX SODIUM 250 MG TABEC 500 MG PO ×2 (08:24→16:46)
[2020-01-09] MEDS: DOCUSATE SODIUM 100 MG CAPSULE PO (08:25)
[2020-01-09] MEDS: ROSUVASTATIN 10 MG TABLET 20 MG PO (08:25)
--- NOTE | 2020-01-09 08:50 | PM.IMPN ---
Progress Note: A&P Assessment and Plan (1) Altered mental status: Code(s): R41.82 - Altered mental status, unspecified Status: Acute Assessment and Plan: The patient's notes that he is confused at baseline with progressive decline but his confusion and hallucinations worsened in the past several days. He has a hx of hallucinations prior to this admission with progressive decline in cognitive function including short-term memory. He may have a component of progressive dementia (DDX includes vascualr, Lewy Body, or Frontotemportal dementia) and needs to follow-up with neurology outpatient as advised for formal cognitive neuropsychiatric testing per review of prior neurology notes. Appreciate further neurology input. CT brain was performed and was unchanged from most recent cerebral imaging 01/01/20 showing subacute right frontal lobe infarction, new since 11/12/19. Ammonia was normal and vitamin B12 and folate are sufficient. TSH is normal. He reported not sleeping since Friday and his confusion may have been caused by sleep deprivation. Depakote level was normal. Neurology is on board. Management per neurology who recommends continuing depakote and adding lithium. Continue to monitor. Await further neurology recommendations. Order PT/OT due to falls. (2) Hallucinations: Code(s): R44.3 - Hallucinations, unspecified Status: Acute Assessment and Plan: Etiology unclear. He may be experiencing delirium due to lack of sleep since Wednesday 01/03. He is doing much better today. Continue ativan PRN. Neurology is on board. Management per neurology. (3) Seizure: Code(s): R56.9 - Unspecified convulsions Status: Acute Assessment and Plan: He had a witnessed seizure which prompted his previous admission to the hospital during his last hospital stay 12/31-01/02. He has not had any further seizures. He was seen by neurology and started on depakote. Depakote level is normal at 57.1. Continue seizure precautions. Management per neurology. (4) Hypertension: Qualifiers: Hypertension type: unspecified Qualified Code(s): I10 - Essential (primary) hypertension Code(s): I10 - Essential (primary) hypertension Status: Chronic Assessment and Plan: Blood pressures were reviewed and are reasonably controlled. Continue amlodipine, metoprolol, and furosemide. Continue to monitor and adjust treatment as indicated. (5) Diabetes: Qualifiers: Chronic kidney disease stage: stage 4 (severe) Diabetes mellitus complication detail: with chronic kidney disease Diabetes mellitus complication status: with kidney complications Diabetes mellitus terminal block assembler insulin use: with terminal block assembler use Diabetes mellitus type: type 2 Qualified Code(s): E11.22 - Type 2 diabetes mellitus with diabetic chronic kidney disease; N18.4 - Chronic kidney disease, stage 4 (severe); Z79.4 - exterminator helper termite (current) use of insulin Code(s): E11.9 - Type 2 diabetes mellitus without complications Status: Chronic Assessment and Plan: Blood sugars are at target. Continue ACHS glucose monitoring, sliding scale insulin, and hypoglycemia protocol. (6) Hyperlipidemia: Code(s): E78.5 - Hyperlipidemia, unspecified Status: Acute Assessment and Plan: Continue rosuvastatin and repatha. (7) Hypothyroidism: Qualifiers: Hypothyroidism type: unspecified Qualified Code(s): E03.9 - Hypothyroidism, unspecified Code(s): E03.9 - Hypothyroidism, unspecified Status: Chronic Assessment and Plan: TSH 0.471. Continue levothyroxine. (8) COPD (chronic obstructive pulmonary disease): Qualifiers: COPD type: unspecified COPD Qualified Code(s): J44.9 - Chronic obstructive pulmonary disease, unspecified Code(s): J44.9 - Chronic obstructive pulmonary disease, unspecified Status: Chronic Assessment and
[2020-01-09 12:03] LABS: Glucose Point of Care 131 (65-105)
[2020-01-09 13:54] LABS: Potassium 3.5 mmol/L (3.4-5.0)
[2020-01-09] MEDS: LITHIUM CARBONATE 150 MG CAPSULE PO ×2 (14:36→20:05)
[2020-01-09 16:29] LABS: Glucose Point of Care 138 (65-105)
[2020-01-09] MEDS: TAMSULOSIN HCL 0.4 MG CAPSULE PO (20:05)
[2020-01-09] MEDS: MELATONIN 3 MG TABLET PO (20:05)
[2020-01-09 21:49] LABS: Glucose Point of Care 165 (65-105)
[2020-01-10] VITALS (10 sets, daily range): BP systolic 115–144; BP diastolic 56–65; PULSE 61–74; RESP 14–16; TEMP 36.6–37.4; O2SAT 97–100
[2020-01-10] MEDS: LEVOTHYROXINE SODIUM 125 MCG TABLET PO (05:36)
[2020-01-10 05:43] LABS: Hemoglobin 9.6 g/dL (14.0-18.0)
[2020-01-10 06:12] LABS: Anion Gap 10 mmol/L (8-16); Blood Urea Nitrogen 23 mg/dL (9-20); Calcium 8.9 mg/dL (8.4-10.2); Carbon Dioxide 27 mmol/L (22-30); Chloride 106 mmol/L (98-107); Estimated CRCL calculation 30 ml/min; Estimated Glomerular Filt Rate 23; Glucose 104 mg/dL (75-110); Magnesium 2.3 mg/dL (1.6-2.3); Potassium 3.2 mmol/L (3.4-5.0); Sodium 143 mmol/L (137-145)
[2020-01-10 07:56] LABS: Glucose Point of Care 102 (65-105)
[2020-01-10] MEDS: FERROUS SULFATE 324 MG TABLET PO (09:18)
[2020-01-10] MEDS: PANTOPRAZOLE 40 MG TABLET PO (09:18)
[2020-01-10] MEDS: POTASSIUM CHLORIDE 20 MEQ TABLET 40 MEQ PO (09:18)
[2020-01-10] MEDS: DIVALPROEX SODIUM 250 MG TABEC 500 MG PO ×2 (09:18→16:29)
[2020-01-10] MEDS: FUROSEMIDE 40 MG TABLET PO ×2 (09:19→16:29)
[2020-01-10] MEDS: amLODIPine BESYLATE 5 MG TABLET 10 MG PO (09:19)
[2020-01-10] MEDS: LITHIUM CARBONATE 150 MG CAPSULE PO ×2 (09:19→21:35)
[2020-01-10] MEDS: LORATADINE 10 MG TABLET PO (09:19)
[2020-01-10] MEDS: APIXABAN 5 MG TABLET PO ×2 (09:19→16:29)
[2020-01-10] MEDS: CLOPIDOGREL BISULFATE 75 MG TABLET PO (09:19)
[2020-01-10] MEDS: DULoxetine HCL 60 MG CAPSULE.DR PO (09:19)
[2020-01-10] MEDS: DOCUSATE SODIUM 100 MG CAPSULE PO (09:19)
[2020-01-10] MEDS: ROSUVASTATIN 10 MG TABLET 20 MG PO (09:20)
[2020-01-10] MEDS: METOPROLOL SUCCINATE EXT REL 100 MG TABCR PO (09:20)
[2020-01-10 11:41] LABS: Glucose Point of Care 164 (65-105)
[2020-01-10 16:15] LABS: Glucose Point of Care 135 (65-105)
--- NOTE | 2020-01-10 18:17 | PM.IMPN ---
Progress Note: A&P Assessment and Plan (1) Altered mental status: Code(s): R41.82 - Altered mental status, unspecified Status: Acute Assessment and Plan: The patient's notes that he is confused at baseline with progressive decline but his confusion and hallucinations worsened in the past several days. He has a hx of hallucinations prior to this admission with progressive decline in cognitive function including short-term memory. He may have a component of progressive dementia (DDX includes vascualr, Lewy Body, or Frontotemportal dementia) and needs to follow-up with neurology outpatient as advised for formal cognitive neuropsychiatric testing per review of prior neurology notes. Appreciate further neurology input. CT brain was performed and was unchanged from most recent cerebral imaging 01/01/20 showing subacute right frontal lobe infarction, new since 11/12/19. Ammonia was normal and vitamin B12 and folate are sufficient. TSH is normal. He reported not sleeping since Friday and his confusion may have been caused by sleep deprivation. Depakote level was normal. Neurology is on board. Management per neurology who recommends continuing depakote and adding lithium. Continue to monitor. Await further neurology recommendations. Will order lithium level for tomorrow. (2) Hallucinations: Code(s): R44.3 - Hallucinations, unspecified Status: Acute Assessment and Plan: Etiology unclear. He may be experiencing delirium due to lack of sleep since Wednesday 01/03. He continues to improve with no further hallucinations during the day. He becomes intermittently confused at night suggesting owning. Continue ativan PRN. Neurology is on board. Management per neurology. (3) Seizure: Code(s): R56.9 - Unspecified convulsions Status: Acute Assessment and Plan: He had a witnessed seizure which prompted his previous admission to the hospital during his last hospital stay 12/31-01/02. He has not had any further seizures. He was seen by neurology and started on depakote. Depakote level is normal at 57.1 on 01/07/20. Continue seizure precautions. Management per neurology. (4) Hypertension: Qualifiers: Hypertension type: unspecified Qualified Code(s): I10 - Essential (primary) hypertension Code(s): I10 - Essential (primary) hypertension Status: Chronic Assessment and Plan: Blood pressures were reviewed and are reasonably controlled. Most recent BP 132/59. Continue amlodipine, metoprolol, and furosemide. Continue to monitor and adjust treatment as indicated. (5) Diabetes: Qualifiers: Diabetes mellitus type: type 2 Diabetes mellitus correction insulin use: with terminal worker use Diabetes mellitus complication status: with kidney complications Diabetes mellitus complication detail: with chronic kidney disease Chronic kidney disease stage: stage 4 (severe) Qualified Code(s): E11.22 - Type 2 diabetes mellitus with diabetic chronic kidney disease; N18.4 - Chronic kidney disease, stage 4 (severe); Z79.4 - care home (current) use of insulin Code(s): E11.9 - Type 2 diabetes mellitus without complications Status: Chronic Assessment and Plan: Blood sugars are at target. Continue ACHS glucose monitoring, sliding scale insulin, and hypoglycemia protocol. (6) Hyperlipidemia: Code(s): E78.5 - Hyperlipidemia, unspecified Status: Acute Assessment and Plan: Continue rosuvastatin and repatha. (7) Hypothyroidism: Qualifiers: Hypothyroidism type: unspecified Qualified Code(s): E03.9 - Hypothyroidism, unspecified Code(s): E03.9 - Hypothyroidism, unspecified Status: Chronic Assessment and Plan: TSH 0.471. Continue levothyroxine. (8) COPD (chronic obstructive pulmonary disease): Qualifiers: COPD type: unspecified COPD Qualified Code(s): J44.9 - Chronic obstructive
[2020-01-10] MEDS: TAMSULOSIN HCL 0.4 MG CAPSULE PO (21:35)
[2020-01-10] MEDS: MELATONIN 3 MG TABLET PO (21:35)
[2020-01-10 22:13] LABS: Glucose Point of Care 133 (65-105)
[2020-01-11] VITALS (10 sets, daily range): BP systolic 112–137; BP diastolic 53–68; PULSE 61–70; RESP 16–20; TEMP 36.6–36.8; O2SAT 99–100
[2020-01-11 06:13] LABS: Hemoglobin 9.5 g/dL (14.0-18.0); Mean Corpuscular HGB Conc 31.7 g/dl (32-36); Mean Corpuscular Hemoglobin 28.8 pg (26-34); Mean Corpuscular Volume 90.9 fl (80-100); Mean Platelet Volume 10.2 fl (7.4-10.4); Platelet Count Result 137 k/mm3 (150-375); Red Cell Distribution Width 14.6 % (11.5-14.5)
[2020-01-11] MEDS: LEVOTHYROXINE SODIUM 125 MCG TABLET PO (06:19)
[2020-01-11 06:34] LABS: Alanine Aminotransferase 13 U/L (4-50); Albumin Level 3.8 g/dL (3.5-5.1); Alkaline Phosphatase 131 U/L (38-126); Anion Gap 7 mmol/L (8-16); Aspartate Amino Transferase 22 U/L (17-59); Bilirubin,Total 0.4 mg/dL (0.2-1.3); Blood Urea Nitrogen 25 mg/dL (9-20); Calcium 8.9 mg/dL (8.4-10.2); Carbon Dioxide 33 mmol/L (22-30); Chloride 106 mmol/L (98-107); Estimated CRCL calculation 25 ml/min; Estimated Glomerular Filt Rate 19; Glucose 114 mg/dL (75-110); Potassium 3.4 mmol/L (3.4-5.0); Sodium 146 mmol/L (137-145)
[2020-01-11 06:36] LABS: Lithium 0.2 mmol/L (0.6-1.2)
[2020-01-11 07:53] LABS: Glucose Point of Care 110 (65-105)
[2020-01-11] MEDS: FERROUS SULFATE 324 MG TABLET PO (09:44)
[2020-01-11] MEDS: amLODIPine BESYLATE 5 MG TABLET 10 MG PO (09:44)
[2020-01-11] MEDS: DULoxetine HCL 60 MG CAPSULE.DR PO (09:44)
[2020-01-11] MEDS: DIVALPROEX SODIUM 250 MG TABEC 500 MG PO ×2 (09:44→16:49)
[2020-01-11] MEDS: DOCUSATE SODIUM 100 MG CAPSULE PO (09:44)
[2020-01-11] MEDS: CLOPIDOGREL BISULFATE 75 MG TABLET PO (09:44)
[2020-01-11] MEDS: APIXABAN 5 MG TABLET PO ×2 (09:44→16:48)
[2020-01-11] MEDS: FUROSEMIDE 40 MG TABLET PO ×2 (09:45→16:48)
[2020-01-11] MEDS: LORATADINE 10 MG TABLET PO (09:45)
[2020-01-11] MEDS: PANTOPRAZOLE 40 MG TABLET PO (09:45)
[2020-01-11] MEDS: ROSUVASTATIN 10 MG TABLET 20 MG PO (09:45)
[2020-01-11] MEDS: LITHIUM CARBONATE 150 MG CAPSULE PO (09:45)
[2020-01-11] MEDS: METOPROLOL SUCCINATE EXT REL 100 MG TABCR PO (09:46)
--- NOTE | 2020-01-11 11:27 | WPDNEUROPN ---
Progress Note: A&P Assessment and Plan (1) Hallucinations: Code(s): R44.3 - Hallucinations, unspecified Status: Acute (2) CKD (chronic kidney disease) stage 4, GFR 15-29 ml/min: Code(s): N18.4 - Chronic kidney disease, stage 4 (severe) Status: Chronic (3) Dementia: Code(s): F03.90 - Unspecified dementia without behavioral disturbance Status: Acute (4) Seizure: Code(s): R56.9 - Unspecified convulsions Status: Acute (5) CVA (cerebrovascular accident): Code(s): I63.9 - Cerebral infarction, unspecified Status: Acute Additional Plan much better/home on same treatment Review of Systems Review of Systems: All systems reviewed & are unremarkable except as noted in HPI and below Exam Narrative: Exam Narrative: reveals him to be awake alert cooperative sitting in the chair with no evidence ofhallucination, feeling very welll head normocephalic with no cranial bruit, ent t examination normal neck supple heart regular lungs clear abdomen is soft neuro examination reveals him to have no focal neurological deficits Objective Data Vital Signs Vital Signs: Vital Signs - 24 hr 01/10/20 12:00 01/10/20 16:00 01/10/20 16:33 Temperature 36.9 C Pulse Rate 74 65 66 Respiratory Rate 14 Blood Pressure 132/59 L Pulse Oximetry 97 01/10/20 19:49 01/10/20 20:00 01/11/20 00:00 Temperature 36.6 C Pulse Rate 65 61 63 Respiratory Rate 16 Blood Pressure 115/56 L Pulse Oximetry 100 01/11/20 04:00 01/11/20 04:11 01/11/20 08:00 Temperature 36.8 C Pulse Rate 65 70 61 Respiratory Rate 16 Blood Pressure 137/68 Pulse Oximetry 100 01/11/20 09:46 Temperature Pulse Rate 65 Respiratory Rate Blood Pressure Pulse Oximetry Intake/Output Intake/Output: Intake & Output 01/08/20 01/09/20 01/10/20 01/11/20 23:59 23:59 23:59 23:59 Intake Total 3341 1440 1780 1440 Output Total 950 475 277 7137 Balance 2391 1090 1055 -360 Meds/Results Medications: Active Medications Generic Name Dose Route Start Last Admin Trade Name Freq PRN Reason Stop Dose Admin Acetaminophen 650 mg 01/07/20 16:02 Acetaminophen 325 Mg Tablet PO Q4H PRN Mild Pain (1-3) or Fever Albuterol 2.5 mg 01/08/20 17:52 Albuterol Sulfate Neb 2.5 Mg/0.5 Ml Inh INHALATION Q6HRT PRN Shortness Of Breath Amlodipine Besylate 10 mg 01/08/20 09:00 01/11/20 09:44 Amlodipine Besylate 5 Mg Tablet PO 10 mg DAILY BEN Administration Apixaban 5 mg 01/08/20 09:00 01/11/20 09:44 Apixaban 5 Mg Tablet PO 5 mg BID BEN Administration Clopidogrel Bisulfate 75 mg 01/08/20 09:00 01/11/20 09:44 Clopidogrel Bisulfate 75 Mg Tablet PO 75 mg DAILY BEN Administration Divalproex Sodium 500 mg 01/08/20 08:00 01/11/20 09:44 Divalproex Sodium 250 Mg Tabec PO 500 mg BIDWM BEN Administration Docusate Sodium 100 mg 01/08/20 09:00 01/11/20 09:44 Docusate Sodium 100 Mg Capsule PO 100 mg DAILY BEN Administration Duloxetine HCl 60 mg 01/08/20 09:00 01/11/20 09:44 Duloxetine Hcl 60 Mg Capsule.Dr PO 60 mg DAILY BEN Administration Ferrous Sulfate 324 mg 01/08/20 09:00 01/11/20 09:44 Ferrous Sulfate 324 Mg Tablet PO 324 mg DAILY BEN Administration Furosemide 40 mg 01/08/20 09:00 01/11/20 09:45 Furosemide 40 Mg Tablet PO 40 mg BID BEN Administration Insulin Aspart 3 - 6 units 01/07/20 17:00 01/11/20 08:17 Insulin Aspart (*Bkc) 100 Units/Ml SUB-Q Not Given [facility] Protocol Levothyroxine Sodium 125 mcg 01/08/20 06:30 01/11/20 06:19 Levothyroxine Sodium 125 Mcg Tablet PO 125 mcg DAILY@0630 BEN Administration [place] Carbonate 150 mg 01/09/20 14:05 01/11/20 09:45 [place] Carbonate 150 Mg Capsule PO 150 mg Q12HR BEN Administration Loratadine 10 mg 01/08/20 09:00 01/11/20 09:45 Loratadine 10 Mg Tablet PO 10 mg DAILY BEN Administration Loraz
[2020-01-11 11:39] LABS: Glucose Point of Care 121 (65-105)
--- NOTE | 2020-01-11 14:27 | PM.IMPN ---
Progress Note: A&P Assessment and Plan (1) Altered mental status: Code(s): R41.82 - Altered mental status, unspecified Status: Acute Assessment and Plan: The patient's notes that he is confused at baseline with progressive decline but his confusion and hallucinations worsened over the past several days prior to admission. He has a hx of hallucinations prior to this admission with progressive decline in cognitive function including short-term memory. He may have a component of progressive dementia (DDX includes vascular, Lewy Body, or Frontotemportal dementia) and needs to follow-up with neurology outpatient as advised for formal cognitive neuropsychiatric testing per review of prior neurology notes, which is scheduled for 01/17/20. CT brain was performed and was unchanged from most recent cerebral imaging 01/01/20 showing subacute right frontal lobe infarction, new since 11/12/19. Ammonia was normal and vitamin B12 and folate are sufficient. TSH is normal. He reported not sleeping since Friday and his confusion may have been caused by sleep deprivation; he is now sleeping well. Depakote level was normal. Neurology is following and recommendations are appreciated. [place] discontinued today due to patients CKD following discussion with nephrology and neurology. Initiate seroquel 25 mg in the evening and 25 mg before bed per neurology recommendations in place of lithium. Monitor patient overnight with this medication. Hopeful discharge tomorrow. (2) Hallucinations: Code(s): R44.3 - Hallucinations, unspecified Status: Acute Assessment and Plan: Etiology unclear. He may be experiencing delirium due to lack of sleep since Wednesday 01/03 or may be due to lewy body dementia. He continues to improve with no further hallucinations in 3 days. He becomes intermittently confused at night suggesting sundowning. Appreciate neurology recommendations Continue ativan PRN. Initiate seroquel as above (3) Seizure: Code(s): R56.9 - Unspecified convulsions Status: Acute Assessment and Plan: He had a witnessed seizure which prompted his previous admission to the hospital during his last hospital stay 12/31-01/02. He has not had any further seizures. He was seen by neurology and started on depakote. Depakote level is normal at 57.1 on 01/07/20. Continue seizure precautions. Management per neurology. (4) Hypertension: Qualifiers: Hypertension type: unspecified Qualified Code(s): I10 - Essential (primary) hypertension Code(s): I10 - Essential (primary) hypertension Status: Chronic Assessment and Plan: Blood pressures were reviewed and are reasonably controlled. Most recent BP 137/68. Continue amlodipine, metoprolol, and furosemide. Continue to monitor and adjust treatment as indicated. 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 Continue ACHS glucose monitoring, sliding scale insulin, and hypoglycemia protocol. (6) Hyperlipidemia: Code(s): E78.5 - Hyperlipidemia, unspecified Status: Acute Assessment and Plan: Continue rosuvastatin and repatha. (7) Hypothyroidism: Qualifiers: Hypothyroidism type: unspecified Qualified Code(s): E03.9 - Hypothyroidism, unspecified Code(s): E03.9 - Hypothyroidism, unspe
[2020-01-11 16:45] LABS: Glucose Point of Care 125 (65-105)
[2020-01-11] MEDS: QUEtiapine FUMARATE 25 MG TABLET PO ×2 (16:48→20:18)
[2020-01-11] MEDS: TAMSULOSIN HCL 0.4 MG CAPSULE PO (20:18)
[2020-01-11] MEDS: MELATONIN 3 MG TABLET PO (20:18)
[2020-01-11 22:18] LABS: Glucose Point of Care 144 (65-105)
[2020-01-12] VITALS (7 sets, daily range): BP systolic 116; BP diastolic 61; PULSE 59–66; RESP 14; TEMP 36.7; O2SAT 97
[2020-01-12 06:12] LABS: Methyl Alcohol Level None Detected (None Detected)
[2020-01-12] MEDS: LEVOTHYROXINE SODIUM 125 MCG TABLET PO (06:17)
[2020-01-12 06:31] LABS: Hemoglobin 9.6 g/dL (14.0-18.0); Mean Corpuscular Hemoglobin 28.8 pg (26-34); Mean Corpuscular Volume 90.1 fl (80-100); Mean Platelet Volume 10.2 fl (7.4-10.4); Platelet Count Result 139 k/mm3 (150-375); Red Blood Count 3.33 M/mm3 (4.6-6.20); Red Cell Distribution Width 14.6 % (11.5-14.5); White Blood Count 6.7 K/mm3 (4.5-10.0)
[2020-01-12 06:42] LABS: Alanine Aminotransferase 12 U/L (4-50); Alkaline Phosphatase 135 U/L (38-126); Anion Gap 11 mmol/L (8-16); Aspartate Amino Transferase 21 U/L (17-59); Bilirubin,Total 0.3 mg/dL (0.2-1.3); Blood Urea Nitrogen 28 mg/dL (9-20); Carbon Dioxide 28 mmol/L (22-30); Chloride 106 mmol/L (98-107); Estimated CRCL calculation 27 ml/min; Estimated Glomerular Filt Rate 20; Glucose 100 mg/dL (75-110); Potassium 3.1 mmol/L (3.4-5.0); Sodium 145 mmol/L (137-145)
[2020-01-12 07:39] LABS: Glucose Point of Care 97 (65-105)
[2020-01-12] MEDS: POTASSIUM CHLORIDE 20 MEQ TABLET 40 MEQ PO (08:21)
[2020-01-12] MEDS: METOPROLOL SUCCINATE EXT REL 100 MG TABCR PO (08:22)
[2020-01-12] MEDS: DULoxetine HCL 60 MG CAPSULE.DR PO (08:22)
[2020-01-12] MEDS: CLOPIDOGREL BISULFATE 75 MG TABLET PO (08:22)
[2020-01-12] MEDS: DIVALPROEX SODIUM 250 MG TABEC 500 MG PO (08:22)
[2020-01-12] MEDS: DOCUSATE SODIUM 100 MG CAPSULE PO (08:22)
[2020-01-12] MEDS: FUROSEMIDE 40 MG TABLET PO (08:22)
[2020-01-12] MEDS: FERROUS SULFATE 324 MG TABLET PO (08:22)
[2020-01-12] MEDS: APIXABAN 5 MG TABLET PO (08:22)
[2020-01-12] MEDS: LORATADINE 10 MG TABLET PO (08:23)
[2020-01-12] MEDS: PANTOPRAZOLE 40 MG TABLET PO (08:23)
[2020-01-12] MEDS: amLODIPine BESYLATE 5 MG TABLET 10 MG PO (08:23)
[2020-01-12] MEDS: ROSUVASTATIN 10 MG TABLET 20 MG PO (08:24)
[2020-01-12 11:28] LABS: Glucose Point of Care 140 (65-105)
--- NOTE | 2020-01-12 11:51 | PM.DS ---
DS: Admitting Diagnosis Admitting Diagnosis Admitting Diagnosis: altered mental status DS: Discharge Diagnosis Discharge Diagnosis (1) Altered mental status: Code(s): R41.82 - Altered mental status, unspecified Status: Acute Assessment and Plan: The patient's notes that he is confused at baseline with progressive decline but his confusion and hallucinations worsened over the past several days prior to admission. He has a hx of hallucinations prior to this admission with progressive decline in cognitive function including short-term memory. He may have a component of progressive dementia (DDX includes vascular, Lewy Body, or frontotemportal dementia) and needs to follow-up with neurology outpatient as advised for formal cognitive neuropsychiatric testing which is scheduled for 01/17/20. CT brain was performed and was unchanged from most recent head CT 01/01/20 showing subacute right frontal lobe infarction, new since 11/12/19. TSH, ammonia, vitamin B12 and folate were wnl. He reported not sleeping for several days due to hallucinations and his confusion may have been caused by sleep deprivation. Depakote level was normal. He was seen in consultation by neurology. [place] was initiated on 01/08 per neurology recommendations but upon review of patients CKD, this medication was discontinued on 01/10. Case discussed with nephrology. Therefore, he was transitioned to seroquel 25 mg in the evening and 25 mg before bed, per neuro recs. He will continue seroquel upon discharge. (2) Hallucinations: Code(s): R44.3 - Hallucinations, unspecified Status: Acute Assessment and Plan: Etiology unclear. [place] to be contributing to AMS as above. May be delirium secondary to sleep deprivation or may be related to progressive dementia as noted above, possibly Lewy body dementia. He did not have any further hallucinations while hospitalized. He becomes intermittently confused at night suggesting sundowning. He will need to attend neurocognitive test as an outpatient next week and follow up with his neurologist. Continue seroquel as above. (3) Seizure: Code(s): R56.9 - Unspecified convulsions Status: Acute Assessment and Plan: He had a witnessed seizure which prompted his previous admission to the hospital during his last hospital stay 12/31-01/02. He has not had any further seizures. He was seen by neurology and started on depakote. Depakote level is normal at 57.1 on 10/9/20. Follow up with neurologist. Educated on avoiding driving. (4) Hypertension: Qualifiers: Hypertension type: unspecified Qualified Code(s): I10 - Essential (primary) hypertension Code(s): I10 - Essential (primary) hypertension Status: Chronic Assessment and Plan: Blood pressures were reviewed and remained reasonably controlled. Continue amlodipine, metoprolol, and furosemide. (5) Diabetes: Qualifiers: Diabetes mellitus type: type 2 Diabetes mellitus group home insulin use: with manager intermediate use Diabetes mellitus complication status: with kidney complications Diabetes mellitus complication detail: with chronic kidney disease Chronic kidney disease stage: stage 4 (severe) Qualified Code(s): E11.22 - Type 2 diabetes mellitus with diabetic chronic kidney disease; N18.4 - Chronic kidney disease, stage 4 (severe); Z79.4 - [facility] (current) use of insulin Code(s): E11.9 - Type 2 diabetes mellitus without complications Status: Chronic Assessment and Plan: Blood sugars are at target. Continue home insulin regimen. (6) Hyperlipidemia: Code(s): E78.5 - Hyperlipidemia, unspecified Status: Acute Assessment and Plan: Continue rosuvastatin and repatha. (7) Hypothyroidism: Qualifiers: Hypothyroidism type: unspecified Qualified Code(s): E03.9 - Hypothyroidism, unspecified Code(s): E03.9 - Hypothyroidism, unspecified Stat
== END 2020-01-12 13:20 | disposition home health service (06) ==
LOC: ANHED 16:18 → ANH3MED 16:46
PROVIDERS: Nurse Practitioner; Physician Assistant; Admitting Provider Internal Medicine; Emergency Provider Family Medicine; PCP Nurse Practitioner Family; Visit Provider Physician Assistant
DX: R41.82 Altered mental status, unspecified (principal); R44.3 Hallucinations, unspecified; I13.0 Hypertensive heart and chronic kidney disease with heart failure and stage 1 through stage 4 chronic kidney disease, or unspecified chronic kidney disease; E10.22 Type 1 diabetes mellitus with diabetic chronic kidney disease; N18.4 Chronic kidney disease, stage 4 (severe); I48.91 Unspecified atrial fibrillation; G40.909 Epilepsy, unspecified, not intractable, without status epilepticus; R53.81 Other malaise; I50.9 Heart failure, unspecified; J44.9 Chronic obstructive pulmonary disease, unspecified; E78.5 Hyperlipidemia, unspecified; E03.9 Hypothyroidism, unspecified; D64.9 Anemia, unspecified; F03.90 Unspecified dementia, unspecified severity, without behavioral disturbance, psychotic disturbance, mood disturbance, and anxiety; Z86.73 Personal history of transient ischemic attack (TIA), and cerebral infarction without residual deficits; Z79.01 Long term (current) use of anticoagulants; Z79.02 Long term (current) use of antithrombotics/antiplatelets; Z95.1 Presence of aortocoronary bypass graft; Z87.891 Personal history of nicotine dependence; Z95.820 Peripheral vascular angioplasty status with implants and grafts; Z95.3 Presence of xenogenic heart valve
CPT/HCPCS: 36415; 36600; 70450; 80048; 80053; 80164; 80178; 80307; 81001; 82140; 82607; 82746; 82805; 83735; 84132; 84443; 84600; 85014; 85018; 85025; 85027; 93005; 96361; 96365; 96366; 96375; 97110; 97116; 97161; 97166; 97535; 99285; A9270; G0378; J2060; J3480; J7030

== ENCOUNTER 2020-01-17 13:07 | Outpatient (CLI) | payer MEDICARE, MEDICAID, SELFPAY ==
[2020-01-17 13:58] LABS: Anion Gap 10 mmol/L (8-16); Blood Urea Nitrogen 39 mg/dL (9-20); Calcium 8.7 mg/dL (8.4-10.2); Carbon Dioxide 29 mmol/L (22-30); Chloride 102 mmol/L (98-107); Estimated Glomerular Filt Rate 17; Glucose 158 mg/dL (75-110); Potassium 3.7 mmol/L (3.4-5.0); Sodium 141 mmol/L (137-145)
== END 2020-01-17 13:08 | disposition home or self-care (01) ==
PROVIDERS: PCP Nurse Practitioner Family; Referring Provider Nurse Practitioner Family; Visit Provider Physician Assistant
DX: E87.6 Hypokalemia (principal)
CPT/HCPCS: 36415; 80048

== ENCOUNTER 2020-02-28 16:36 | Outpatient (CLI) | payer MEDICARE, MEDICAID, SELFPAY ==
[2020-02-28 17:30] LABS: Basophils Percent Auto 0.2 % (0.2-1.2); Eosinophils Absolute Auto 0.1 K/mm3 (0-0.3); Hematocrit 30.6 % (42.0-52.0); Hemoglobin 9.6 g/dL (14.0-18.0); Immature Granulocyte Absolute 0.03 K/mm3 (0.00-0.031); Immature Granulocyte Percent A 0.6 % (0-0.5); Lymphocytes Absolute Auto 1.69 K/mm3 (0.9-3.2); Lymphocytes Percent Auto 31.2 % (18.3-44.2); Mean Corpuscular HGB Conc 31.4 g/dl (32-36); Mean Corpuscular Hemoglobin 27.9 pg (26-34); Mean Platelet Volume 10.1 fl (7.4-10.4); Monocytes Absolute Auto 0.5 K/mm3 (0.1-0.6); Monocytes Percent Auto 9.4 % (2.6-8.5); Neutrophils Absolute Auto 3.1 K/mm3 (1.3-6.7); Neutrophils Percent Auto 56.6 % (45.5-73.1); Platelet Count Result 126 k/mm3 (150-375); Red Blood Count 3.44 M/mm3 (4.6-6.20); Red Cell Distribution Width 15.1 % (11.5-14.5); White Blood Count 5.4 K/mm3 (4.5-10.0)
[2020-02-28 17:45] LABS: Potassium 4.1 mmol/L (3.4-5.0)
[2020-02-28 17:58] LABS: Albumin Level 4.7 g/dL (3.5-5.1); Anion Gap 10 mmol/L (8-16); Blood Urea Nitrogen 48 mg/dL (9-20); CRP 0.6 mg/dL (<1.0); Calcium 9.6 mg/dL (8.4-10.2); Carbon Dioxide 29 mmol/L (22-30); Chloride 105 mmol/L (98-107); Estimated Glomerular Filt Rate 18; Glucose 113 mg/dL (75-110); Phosphorus 4.4 mg/dL (2.5-4.5); Sodium 144 mmol/L (137-145)
[2020-02-28 18:01] LABS: Parathyroid Intact 103.2 pg/mL (7.5-53.5)
[2020-02-28 18:16] LABS: Creatinine Urine 73.3 mg/dL; Total Protein Urine Random 168 mg/dL
[2020-02-28 18:50] LABS: Vitamin D 25 Hydroxy 68.6 ng/mL
[2020-02-28 18:57] LABS: Erythrocyte Sedimentation Rate 63 mm/hr (0-20)
[2020-02-29 11:56] LABS: Cholesterol 67 mg/dL (0-200); HDL Direct 43 mg/dL; Triglycerides 72 mg/dL (<150)
[2020-02-29 12:11] LABS: LDL Cholesterol Direct < 30 mg/dL
== END 2020-02-28 16:37 | disposition home or self-care (01) ==
PROVIDERS: PCP Nurse Practitioner Family; Visit Provider Internal Medicine Nephrology
DX: M25.552 Pain in left hip (principal); N18.4 Chronic kidney disease, stage 4 (severe); E87.6 Hypokalemia; I25.10 Atherosclerotic heart disease of native coronary artery without angina pectoris
CPT/HCPCS: 36415; 80061; 80069; 82306; 82570; 83970; 84132; 84156; 85025; 85652; 86140

== ENCOUNTER 2020-03-15 15:02 | Outpatient (CLI) | payer MEDICARE, MEDICAID, SELFPAY ==
--- NOTE | ~2020-03-15 | DEXA_ITS ---
Bone Density Report Name: Dustin Angel Age: 60 Sex: Male Ethnicity: White Date of : 1960 Indication: prior fracture; seizure disorder; Referring Provider: TAMEKA ORTIZ Study: Bone densitometry was performed. Exam Date: March 15, 2020 Accession number: [id number] Bone Density: Region BMD T-score Z-score Classification AP Spine (L1-L4) 1.081 -0.1 0.5 Normal World Health Organization criteria for BMD impression classify patients as: Normal (T-score at or above -1.0), Osteopenia (T-score between -1.0 and -2.5), or Osteoporosis (T-score at or below -2.5). Clinical Information Provided by Patient: Have had a previous hip or vertebral fracture Has had a low trauma fracture Has the following medical conditions: Any Seizure Disorders Patient maximum height was 74 No regular weight bearing exercise Impression: The patient has normal bone mass. The patient has risk factors, including: previous fracture. Discussion: INCREASED RISK OF FRACTURE DUE TO HISTORY OF LOW TRAUMA FRACTURE. The patient's previous fracture puts the patient at high risk of a future fracture. In untreated patients, the risk of osteoporotic fracture increases approximately two-fold for each 1.0 SD decrease in T-score. Low bone density is not the only risk factor for fracture; also consider factors such as patient's age, frailty or poor health, risk of falling, risk of injury, previous osteoporotic fracture, family history of osteoporosis, cigarette smoking, low body weight, etc. Not everyone with a low trauma fracture has osteoporosis; osteomalacia and other metabolic bone disorders should also be considered. Patients who have osteoporosis should be evaluated for specific diseases and conditions (secondary causes) that may cause or contribute to bone loss and fracture risk. National Osteoporosis Foundation (NOF) recommends pharmacologic intervention for patients with a prior low trauma hip or vertebral fracture regardless of BMD T-score. The patient should follow a healthful lifestyle (good nutrition with adequate calcium and vitamin D, and appropriate weight-bearing exercise). Follow-Up: Consider a repeat BMD and Vertebral Fracture Assessment (VFA) exam in 2 years or sooner if medically necessary, to reassess this patient's status. Reported by: DO on 03/15/2020 3:22:00 PM. Reviewed, dictated and finalized at location Timothy MARTINEZ
== END 2020-03-15 15:03 | disposition home or self-care (01) ==
PROVIDERS: PCP Nurse Practitioner Family; Visit Provider Orthopaedic Surgery
DX: M81.0 Age-related osteoporosis without current pathological fracture (principal)
CPT/HCPCS: 77080

== ENCOUNTER 2020-03-15 15:39 | Outpatient (CLI) | payer MEDICARE, MEDICAID, SELFPAY | END 2020-03-15 15:40 | disposition home or self-care (01) | LOC: ANHLAB 15:45 | PROVIDERS: PCP Nurse Practitioner Family | DX: R56.9 Unspecified convulsions (principal) | CPT/HCPCS: 36415; 77080; 80164 ==

== ENCOUNTER 2020-04-09 16:10 | Observation (INO) | payer MEDICARE, MEDICAID, SELFPAY ==
[2020-04-09] VITALS (18 sets, daily range): BP systolic 111–161; BP diastolic 77–130; PULSE 101–129; RESP 12–31; TEMP 36.5–37.1; O2SAT 83–100; BMI 27.8
--- NOTE | ~2020-04-09 | XR_ITS ---
EXAMINATION: XR chest 2V DATE: 04/09/2020 16:43 INDICATION: Chest pain. Shortness of breath. TECHNIQUE: Frontal and lateral views of the chest were obtained on 4 radiographs. COMPARISON: Chest single view 11/12/2019, CT abdomen and pelvis 11/03/2018 FINDINGS: The chest demonstrates clear lungs without pneumonia, pleural effusion, or pneumothorax. Th e heart size is normal. There are changes of aortic and mitral valve replacements. IMPRESSION: 1. No acute cardiopulmonary disease. Reviewed, dictated and finalized at location A. LE ROUNDER OPERATOR
--- NOTE | 2020-04-09 16:14 | ECG_ITS ---
Measurements Intervals [place] Rate: 114 P: OR: 0 QRS: 91 QRSD: 99 T: 91 QT: 329 QTc: 454 Interpretive Statements ATRIAL FIBRILLATION WITH RAPID VENTRICULAR RESPONSE RIGHT AXIS DEVIATION NONSPECIFIC ST & T-WAVE ABNORMALITY- INF/LAT LEADS BASELINE ARTIFACT- I, II, AVR, V1 ABNORMAL ECG Electronically Signed On 04-09-2020 16:27:15 OSTEOPATHIC MEDICINE TEACHER by Deondre Wise D.O.
--- NOTE | 2020-04-09 16:27 | ED.CHESTPAIN ---
HPI - Chest Pain General Chief Complaint: Chest Pain Stated Complaint: chest pain, left arm pain Time Seen by Provider: 04/09/20 16:14 Source: patient Mode of arrival: ambulatory Limitations: no limitations History of Present Illness HPI narrative: Patient 60-year-old male complaining of chest pain midsternal, 8 out of 10, pressure, radiating to his left upper extremity started today. Patient denies any shortness of breath, abdominal pain, nausea, vomiting, diaphoresis, fever or chills. Related Data Home Medications Medication Instructions Recorded Confirmed clopidogrel 75 mg PO DAILY 11/12/19 01/07/20 metoprolol succinate 200 mg PO DAILY 11/12/19 01/07/20 rosuvastatin 20 mg PO DAILY 11/12/19 01/07/20 tamsulosin 0.4 mg PO HS 11/12/19 01/07/20 duloxetine 60 mg PO DAILY 11/13/19 01/07/20 pantoprazole 40 mg PO DAILY 11/13/19 01/07/20 docusate sodium 100 mg PO BID 01/01/20 01/07/20 ferrous sulfate [Iron (ferrous 325 mg PO DAILY 01/01/20 01/07/20 sulfate)] furosemide 40 mg PO BID 01/01/20 01/07/20 levothyroxine 125 mcg PO DAILY 01/01/20 01/07/20 apixaban 5 mg PO BID 04/09/20 dronedarone [Multaq] mg 04/09/20 evolocumab 140 mg SUBCUT ONCE 04/09/20 famotidine 20 mg PO BID 04/09/20 finasteride 5 mg PO DAILY 04/09/20 fluticasone propionate 1 spray INTRANASAL BID 04/09/20 hydroxyzine HCl 25 mg PO TID PRN 04/09/20 insulin aspart U-100 [Novolog 5 unit SUBCUT TID 04/09/20 PenFill U-100 Insulin] [id number]-FA-vit K tablet PO 04/09/20 04/09/20 [Adults Multivitamin] naloxone [Narcan] INTRANASAL 04/09/20 prochlorperazine maleate 10 mg PO Q6H PRN 04/09/20 [Compazine] quetiapine 150 mg PO HS 04/09/20 Allergies Allergy/AdvReac Type Severity Reaction Status Date / Time Penicillins Allergy Unknown Rash Verified 04/09/20 16:27 tramadol Allergy Rash Verified 04/09/20 16:27 Review of Systems Review of Systems: All systems reviewed & are unremarkable except as noted in HPI and below Constitutional: Constitutional: Denies body ache(s), Denies chills, Denies excessive sweating, Denies fatigue, Denies fever(s), Denies headache(s), Denies lethargy, Denies malaise, Denies weakness and Denies weight loss Eyes: Eyes: Denies blurry vision, Denies change in vision and Denies loss of vision ENT: Denies dizziness, Denies ear discharge, Denies headache(s), Denies lip swelling, Denies epistaxis, Denies nasal congestion, Denies neck pain, Denies throat swelling and Denies tongue swelling Cardiovascular: Cardiovascular: Denies diaphoresis, Denies rapid heart rate, Denies edema, Denies irregular heart rhythm, Denies lightheadedness, Denies palpitations, Denies dyspnea and Denies dyspnea on exertion Respiratory: Respiratory: Denies chest congestion, Denies cough, Denies hemoptysis, Denies dyspnea and Denies dyspnea on exertion Gastrointestinal: Gastrointestinal: Denies abdominal pain, Denies melena, Denies hematochezia, Denies diarrhea, Denies nausea, Denies vomiting and Denies hematemesis Musculoskeletal: Musculoskeletal: Denies abnormal gait, Denies deformity, Denies joint swelling, Denies limited range of motion, Denies neck pain and Denies numbness Neurologic: Denies Abnormal speech present, Denies abnormal gait, Denies confusion, Denies dizziness, Denies headache(s), Denies focal weakness, Denies loss of vision, Denies numbness, Denies Other visual disturbances, Denies Sensory deficit (Neuro) and Denies weakness Psychiatric: Psychiatric: Denies confusion, Denies depression, Denies auditory hallucinations, Denies homicidal ideation and Denies suicidal ideation Endocrine: Endocrine: Denies cold intolerance, Denies excessive sweating, Denies fatigue, Denies heat intolerance and Denies palpitations Hematologic/Lymphatic: Hematologic/Lymphatic: Denies easy bleeding and Denies easy bruising Allergic/Immunologic: Allergic/Immunologic: Denies lip swelling, Denies throat swelling and Denies tongue swelling PMFSH Past Medical Histor
--- NOTE | 2020-04-09 16:37 | PC.NURSE ---
ASA not given. patient on Eliquis and Plavix.
[2020-04-09 16:38] LABS: Basophils Percent Auto 0.2 % (0.2-1.2); Eosinophils Absolute Auto 0.1 K/mm3 (0-0.3); Eosinophils Percent Auto 1.7 % (0-4.4); Hematocrit 28.1 % (42.0-52.0); Hemoglobin 8.7 g/dL (14.0-18.0); Immature Granulocyte Absolute 0.03 K/mm3 (0.00-0.031); Immature Granulocyte Percent A 0.5 % (0-0.5); Lymphocytes Absolute Auto 1.62 K/mm3 (0.9-3.2); Lymphocytes Percent Auto 27.9 % (18.3-44.2); Mean Corpuscular Hemoglobin 27.1 pg (26-34); Mean Corpuscular Volume 87.5 fl (80-100); Mean Platelet Volume 10.7 fl (7.4-10.4); Monocytes Absolute Auto 0.5 K/mm3 (0.1-0.6); Monocytes Percent Auto 8.6 % (2.6-8.5); Neutrophils Absolute Auto 3.5 K/mm3 (1.3-6.7); Neutrophils Percent Auto 61.1 % (45.5-73.1); Platelet Count Result 111 k/mm3 (150-375); Red Blood Count 3.21 M/mm3 (4.6-6.20); White Blood Count 5.8 K/mm3 (4.5-10.0)
[2020-04-09] MEDS: METOPROLOL TARTRATE INJ 5 MG/5 ML VIAL IV PUSH (16:41)
[2020-04-09 16:42] LABS: INR 1.4
[2020-04-09 16:44] LABS: Anion Gap 13 mmol/L (8-16); Blood Urea Nitrogen 49 mg/dL (9-20); Calcium 9.1 mg/dL (8.4-10.2); Carbon Dioxide 26 mmol/L (22-30); Chloride 103 mmol/L (98-107); Estimated CRCL calculation 26 ml/min; Estimated Glomerular Filt Rate 20; Glucose 151 mg/dL (75-110); Potassium 3.9 mmol/L (3.4-5.0); Sodium 142 mmol/L (137-145)
--- NOTE | 2020-04-09 16:47 | PC.NURSE ---
patient medicated as ordered. resting on stretcher. blanket given. patient wants ice water. advised to remain NPO for now.
[2020-04-09 16:56] LABS: Troponin I 0.019 ng/mL (0.000-0.034)
--- NOTE | 2020-04-09 17:43 | PC.NURSE ---
provider in room now.
[2020-04-09] MEDS: dilTIAZem HCl INJ 25 MG/5 ML VIAL 10 MG IV PUSH (17:46)
--- NOTE | 2020-04-09 18:03 | PC.NURSE ---
patient will be admitted upstairs. patient and aware.
--- NOTE | 2020-04-09 19:30 | PC.NURSE ---
patient's at nurse's station. states that patient needs seizure pads on his bed due to seizure hx. also states that patient has a history of dementia at night. also hx of hallucinations at night where he sees bugs and spiders. wants to make sure this information is communcated to the floor nurses. has also written a list of medications patient would take at night if he were at home.
--- NOTE | 2020-04-09 19:32 | PC.NURSE ---
patient now assigned to [facility]. SBAR faxed and tubed.
--- NOTE | 2020-04-09 19:40 | PC.NURSE ---
report given to RN in [facility]. also covered all of the patient's 's concerns. patient will be transfered to [facility].
[2020-04-09 20:04] LABS: Troponin I 0.017 ng/mL (0.000-0.034)
[2020-04-09 20:52] LABS: D Dimer 1.25 ug/mL (<0.48)
--- NOTE | 2020-04-09 21:10 | ADMGEN ---
This patient, Dustin Angel, was admitted to [facility] [place] at 1955. Patient oriented to hospital policies and general routines including ID bracelet, bed and alarms, pain management, procedures, bathroom and other care routines, personal items, smoking policy, and room service/diet. Information on how to activate the Rapid Response Team has been discussed. Patient is encouraged to report perceived risks to care and to ask questions if they do not understand what they are told or what they should do.
--- NOTE | 2020-04-09 22:19 | PCRCNOTE ---
Pt states he does not wear his home CPAP on a regular basis. He does not want to use ours.
[2020-04-09 23:18] LABS: Troponin I 0.016 ng/mL (0.000-0.034)
--- NOTE | 2020-04-09 23:28 | PM.IMHP ---
H&P: HPI History of Present Illness Date/Time: 04/09/20 23:28 Chief Complaint: Chest pain Narrative: Dustin Angel is a 60 year old male with a past medical history of dementia, type 2 diabetes, CHF, and atrial fibrillation who presented to the ER with chest pain. The patient report he was lying in bed around 3:30 p.m. when he started having pain between his shoulder blades accompanied by some nausea. He reports that the pain was fluttering and achy in nature. It was accompanied by sudden onset of shortness of breath. The symptoms lasted until just before he came to the hospital at which time his pain resolved. Reported that some fluttering sensation was still present. When he arrived to the ER he was in AFib RVR with heart rates in the 130s. He denies any cough or congestion. Shortness of breath a subsequently resolved. He has not been having any lower extremity swelling. He denies orthopnea. This episode did sound a bit as if he may have been having some paroxysmal nocturnal dyspnea. He does have obstructive sleep apnea and is post wear BiPAP at night but only does so intermittently. He was not wearing BiPAP at the time of onset of symptoms. He follows with Dr. Nichole who recently added Multaq to the patient's cardiac medications. He has also on metoprolol 200 mg p.o. daily. Since admission to the chest pains and the patient has had variable heart rates ranging between the low 100s up to 130. He has had not had a recurrence of his chest pain symptoms. IV Cardizem and 1 dose of IV Lopressor. Congestion. He has not had any fevers or chills. When he arrived to the ER he was hypoxic with a pulse ox of 83%. Improved to 90% on 2 L and he has been weaned down to 1 L nasal cannula and satting 98% currently. Review of Systems Review of Systems: Narrative: 12 systems were reviewed with pertinent positives and negatives per HPI. Except as documented in the HPI, all other systems were reviewed and are negative. [facility] Past Medical History Medical History (Updated 04/10/20 @ 03:12 by Nette Randolph DO) Atrial fibrillation Bowel obstruction 2011 BPH (benign prostatic hyperplasia) Chronic anemia CKD (chronic kidney disease) stage 4, GFR 15-29 ml/min With baseline creatinine 2.8 in 3.5 Congestive heart failure Systolic congestive heart failure COPD (chronic obstructive pulmonary disease) CVA (cerebrovascular accident) Subacute right frontal temporal parietal infarct noted on CT 11/12/2019 Deficient knowledge of open reduction and internal (ORIF) fixation of hip Left on 11/14/2019 Dementia With hallucinations and episodes of agitation Diabetes Endocarditis GERD (gastroesophageal reflux disease) Hyperlipidemia Hypertension Hypothyroidism Obstructive sleep apnea Intermittent use of BiPAP Peripheral neuropathy Surgical History Surgical History (Updated 04/10/20 @ 03:08 by Nette Randolph DO) H/O aortic valve replacement with porcine valve Bioprosthetic valve due to severe aortic regurgitation performed at [place] August 2018 H/O mitral valve repair August 2018 at [place] History of bunionectomy of both great toes History of colonoscopy with polypectomy S/P CABG x 29 August 2018 [place] graft to the LAD S/P ORIF (open reduction internal fixation) fracture left hip October 2019 S/P peripheral artery angioplasty with stent placement a total of 7 stents between both of his legs. Family History Family History Father Family history of liver disease Mother Family history of heart disease in male family member before age 55 Sibling Acute myocardial infarction Social History Social History (Updated 04/10/20 @ 03:10 by Nette Randolph DO) Social History: The patient is on disability. 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 He lives with his significant other Christiana. She is a durable power assistant district attorney for healthcare. He desires to be a full code. He has 3 children and 9 g
[2020-04-10] VITALS (16 sets, daily range): BP systolic 114–143; BP diastolic 66–97; PULSE 110–138; RESP 16–20; TEMP 36.6–36.8; O2SAT 96–100
[2020-04-10] MEDS: LEVOTHYROXINE SODIUM 125 MCG TABLET PO (06:04)
--- NOTE | 2020-04-10 09:05 | PC.NURSE ---
DR. CHRISTINE TO BEDSIDE TO SEE PT. CONDITION UPDATE GIVEN. PLAN TO CARDIOVERT PT. TODAY. WILL NOW KEEP PT.NPO. VQ LUNG SCAN CANCELLED. DR. CHRISTINE TO UPDATE PT'S POA.
--- NOTE | 2020-04-10 09:13 | PM.CNCAR ---
Assessment and Plan Additional Plan This is a 60-year-old male with: Atrial fibrillation with underlying valvular and coronary disease as described above patient underwent bioprosthetic aortic valve replacement and mitral valve repair in August of 2018. Previously was converted to sinus rhythm electrically and maintained on amiodarone treatment. This was stopped several months ago and he is back in atrial fibrillation. According to the office notes he was started on Multaq last week obviously with the intention of attempting to restore sinus rhythm again. He entered the hospital through the emergency room with some left shoulder pain which has ruled out to be an acute coronary syndrome. While he is here it seems reasonable to attempt to restore sinus rhythm electrically since that was the plan as an outpatient and he is on his medication and he is taking apixaban as such he is systemically anticoagulated. I will keep him NPO and anticipate attempting electrical cardioversion later today Jose Manuel Hendricks MD [facility] History of Present Illness History of Present Illness Consult date/time: 04/10/20 09:13 Consult reason: chest pain and atrial fibrillation Reason For Visit: ATRIAL FIB WITH RVR, CHEST PAIN Narrative: This is a 60-year-old man who has a significant cardiac history and follows with Dr. Hunter of our practice. The patient came to the emergency room last night because he was experiencing some pain in the region of his left scapula that was causing him to cry of concern as well as his girlfriend with whom he lives. He states this started to occur last evening when he was relaxing at home he was not exerting himself he in fact he does not exert much at all in the last couple of years. The discomfort because of his history was concerning to him so he came to the emergency department for evaluation. In the emergency department he was found to be essentially in no distress the symptom resolved spontaneously after about 20 minutes. He was admitted for rule out a ND/ACS. His biomarkers have been negative x3 sets any reports this morning to be asymptomatic. This patient has a history of coronary heart disease valvular heart disease and atrial fibrillation. 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 He underwent a bioprosthetic aortic valve replacement and mitral valve repair and of single-vessel bypass with a PRESTON to the LAD at that time. He has been in atrial fibrillation off and on has previously been treated with amiodarone and cardioverted. He was maintaining sinus rhythm successfully and was taken off of amiodarone in October of this year. He was having some hallucinations I suppose at that time and there was some concern that this medication might be contributing to this. Hallucinations however have continued. Shortly after that was unfortunately hospitalized when he missed a step in his garage fell and sustained a hip fracture and underwent repair of that at this hospital as well. He was last seen in the office by our nurse practitioner in April 04 of this year just last week and was back in atrial fib with RVR heart rate was about 110-120. Dr. Hunter started him back on antiarrhythmic therapy with Multaq at that time. He says since last week Friday or Friday he has been taking Multaq 400 mg q.12 hours. The chart indicates there was some discussion about placing him back on amiodarone but his significant other/girlfriend did not want him to take that medication any longer. In the chest Pain Center today he is still in atrial fib heart rate varies between 100-120 and he seems to be largely asymptomatic with it. Plan however set forth in the office last week was obviously to attempt to restore sinus rhythm again. Review of Systems
[2020-04-10 09:42] LABS: Hematocrit 28.3 % (42.0-52.0); Hemoglobin 8.8 g/dL (14.0-18.0); Mean Corpuscular HGB Conc 31.1 g/dl (32-36); Mean Corpuscular Volume 86.8 fl (80-100); Platelet Count Result 104 k/mm3 (150-375); Red Blood Count 3.26 M/mm3 (4.6-6.20); Red Cell Distribution Width 14.9 % (11.5-14.5)
[2020-04-10] MEDS: DRONEDARONE HCL 400 MG TABLET BY MOUTH (09:50)
[2020-04-10] MEDS: DIVALPROEX SODIUM 250 MG TABEC 500 MG PO ×2 (09:50→15:55)
[2020-04-10 09:59] LABS: Anion Gap 10 mmol/L (8-16); Blood Urea Nitrogen 46 mg/dL (9-20); Calcium 9.2 mg/dL (8.4-10.2); Carbon Dioxide 29 mmol/L (22-30); Chloride 103 mmol/L (98-107); Estimated CRCL calculation 25 ml/min; Estimated Glomerular Filt Rate 19; Glucose 122 mg/dL (75-110); Magnesium 2.1 mg/dL (1.6-2.3); Potassium 3.6 mmol/L (3.4-5.0); Sodium 142 mmol/L (137-145)
[2020-04-10] MEDS: APIXABAN 5 MG TABLET PO ×2 (09:59→15:54)
[2020-04-10] MEDS: CLOPIDOGREL BISULFATE 75 MG TABLET PO (10:00)
[2020-04-10] MEDS: METOPROLOL SUCCINATE EXT REL 100 MG TABCR 200 MG PO (10:01)
[2020-04-10] MEDS: DULoxetine HCL 60 MG CAPSULE.DR PO (10:01)
[2020-04-10] MEDS: DOCUSATE SODIUM 100 MG CAPSULE PO ×2 (10:01→15:56)
[2020-04-10] MEDS: FAMOTIDINE 20 MG TABLET PO ×2 (10:02→15:56)
[2020-04-10] MEDS: FINASTERIDE 5 MG TABLET PO (10:03)
[2020-04-10] MEDS: MULTIVITAMINS /C LUTEIN (CENTRUM SILVER) TABLET *BKC 1 TAB PO (10:03)
[2020-04-10] MEDS: PANTOPRAZOLE 40 MG TABLET PO (10:03)
[2020-04-10] MEDS: ROSUVASTATIN 10 MG TABLET 20 MG PO (10:03)
[2020-04-10 12:03] LABS: Glucose Point of Care 136 (65-105)
--- NOTE | 2020-04-10 12:20 | ECG_ITS ---
Measurements Intervals [place] Rate: 117 P: [place]: 0 QRS: 91 QRSD: 96 T: 91 QT: 324 QTc: 453 Interpretive Statements ATRIAL FIBRILLATION WITH RAPID VENTRICULAR RESPONSE RIGHT AXIS DEVIATION NONSPECIFIC ST & T-WAVE ABNORMALITY- INF/HIGH LAT LEADS ABNORMAL ECG Electronically Signed On 04-10-2020 12:43:[address] [employer] by Deondre Wise D.O.
--- NOTE | 2020-04-10 12:28 | WPDMODSED ---
Moderate Sedation Note-Pt Data Patient Data Diagnosis: Recurrent atrial fibrillation History of valvular heart disease/coronary disease Present Complaint: Patient admitted for musculoskeletal left shoulder pain Procedure to be performed/Plan: DC cardioversion Allergies Allergy/AdvReac Type Severity Reaction Status Date / Time Penicillins Allergy Unknown Rash Verified 04/09/20 16:27 tramadol Allergy Rash Verified 04/09/20 16:27 Home Medications Medication Instructions Recorded Confirmed Type clopidogrel 75 mg PO DAILY 11/12/19 04/09/20 History metoprolol succinate 200 mg PO DAILY 11/12/19 04/09/20 History rosuvastatin 20 mg PO DAILY 11/12/19 04/09/20 History tamsulosin 0.4 mg PO HS 11/12/19 04/09/20 History duloxetine 60 mg PO DAILY 11/13/19 04/09/20 History pantoprazole 40 mg PO DAILY 11/13/19 04/09/20 History melatonin 3 mg PO HS #30 tablet 11/18/19 04/09/20 Rx docusate sodium 100 mg PO BID 01/01/20 04/09/20 History ferrous sulfate [Iron (ferrous 142 mg PO DAILY 01/01/20 04/09/20 History sulfate)] furosemide 40 mg PO EVERY OTHER DAY 01/01/20 04/09/20 History levothyroxine 125 mcg PO DAILY 01/01/20 04/09/20 History divalproex [Depakote] 500 mg PO BIDWM 30 Days #120 tablet 01/03/20 04/09/20 Rx hydrocodone-acetaminophen 1 tablet PO QID PRN #0 tablet 01/11/20 04/09/20 Rx apixaban 5 mg PO BID 04/09/20 04/09/20 History dronedarone [Multaq] 400 mg BID 04/09/20 04/09/20 History evolocumab 140 mg SUBCUT [id number] 04/09/20 04/09/20 History famotidine 20 mg PO BID 04/09/20 04/09/20 History finasteride 5 mg PO DAILY 04/09/20 04/09/20 History fluticasone propionate 1 spray INTRANASAL BID PRN 04/09/20 04/09/20 History furosemide 80 mg PO EVERY OTHER DAY 04/09/20 04/09/20 History hydroxyzine HCl 25 mg PO TID PRN 04/09/20 04/09/20 History insulin aspart U-100 [Novolog 5 unit SUBCUT HS 04/09/20 04/09/20 History PenFill U-100 Insulin] [id number]-vit K 1 tablet PO DAILY 04/09/20 04/09/20 History [Adults Multivitamin] naloxone [Narcan] 1 spray INTRANASAL PRN PRN 04/09/20 04/09/20 History prochlorperazine maleate 10 mg PO Q6H PRN 04/09/20 04/09/20 History [Compazine] quetiapine 150 mg PO HS 04/09/20 04/09/20 History Current Medications: Active Medications Hydrocodone Bitart/Acetaminophen (Hydrocodone/Acetaminophen (*Crx) 10-325 Mg Tablet) 1 tab PO QID PRN PRN Reason: pain 7-10 Apixaban (Apixaban 5 Mg Tablet) 5 mg PO BID [facility] Last Admin: 04/10/20 09:59 Dose: 5 mg Documented by: Clopidogrel Bisulfate (Clopidogrel Bisulfate 75 Mg Tablet) 75 mg PO DAILY [facility] Last Admin: 04/10/20 10:00 Dose: 75 mg Documented by: Dextrose (Dextrose 50% 25 Gm/50 Ml Syringe) 12.5 gm IV PUSH PRN PRN; Protocol PRN Reason: Hypoglycemia Divalproex Sodium (Divalproex Sodium 250 Mg Tabec) 500 mg PO BIDWM [facility] Last Admin: 04/10/20 09:50 Dose: 500 mg Documented by: Docusate Sodium (Docusate Sodium 100 Mg Capsule) 100 mg PO BID [facility] Last Admin: 04/10/20 10:01 Dose: 100 mg Documented by: Dronedarone (Dronedarone Hcl 400 Mg Tablet) 400 mg BY MOUTH BIDWM [facility] Last Admin: 04/10/20 09:50 Dose: 400 mg Documented by: Duloxetine HCl (Duloxetine Hcl 60 Mg Capsule.Dr) 60 mg PO DAILY [facility] Last Admin: 04/10/20 10:01 Dose: 60 mg Documented by: Famotidine (Famotidine 20 Mg Tablet) 20 mg PO BID [facility] Last Admin: 04/10/20 10:02 Dose: 20 mg Documented by: Ferrous Sulfate (Ferrous Sulfate 324 Mg Tablet) 142 mg PO DAILY [facility] Finasteride (Finasteride 5 Mg Tablet) 5 mg PO DAILY [facility] Last Admin: 04/10/20 10:03 Dose: 5 mg Documented by: Fluticasone Propionate (Fluticasone Propionate 0.05% Na Spr 16 Gm Btl (*Bkc)) 1 spray NASAL BID PRN PRN Reason: Allergy Symptoms Furosemide (Furosemide 40 Mg Tablet) 80 mg PO EVERY OTHER DAY BEN Furosemide (Furosemide 40 Mg Tablet) 40 mg PO EVERY OTHER DAY BEN Glucagon (Glucagon For Inj 1 Mg Vial) 1 mg IM PRN PRN; Protocol PRN Reason: Hypoglycemia Glucose (Glucose Oral Gel 15 Gm Of Glucse In 37.5 Gm Tub
--- NOTE | 2020-04-10 12:42 | PC.NURSE ---
SEE INTRAOPERATIVE CHARTING AND PHASE II CHARTING FOR DOCUMENTATION OF CARDIOVERSION PROCEDURE IN [facility].
--- NOTE | 2020-04-10 12:49 | P.PCNCC_ITS ---
Cardiac Cath Procedure Note Date of procedure:: 04/10/20 Performing physician:: oJse Manuel Hendricks MD Indication:: Recurrent atrial fibrillation Brief clinical history:: 60-year-old man with coronary disease and valvular heart disease who had single-vessel bypass grafting, aortic valve replacement and mitral valve repair done at another hospital. He has a history of atrial fibrillation and has a symptomatic recurrence. He has been placed on dronedarone and admitted to the hospital with some atypical shoulder pain. ACS has been ruled out. In this setting and attempted electrically restoring sinus rhythm has been recommended Procedure Procedure performed:: DC cardioversion Sedation/Medication given:: Intravenous propofol in aliquots total of 60 mg given Estimated blood loss:: No blood loss Procedure note:: Patient was sedated with propofol in aliquots total dosage of 60 mg was given. He was nicely sedated sedated with this and was DC cardioverted with 200 joules restoring normal sinus rhythm with heart rate in the 60s. While the patient was still sedated and before 12 lead ECG could even be done he was back in atrial fibrillation. Findings:: As above DC cardioversion successfully but only transiently restoring sinus rhythm Conclusion:: 1. Successful DC cardioversion of atrial fibrillation which very rapidly degenerated back into AFib before the patient could even have a 12 lead ECG done while still sedated. Jose Manuel Hendricks MD [facility]
--- NOTE | 2020-04-10 12:50 | ECG_ITS ---
Measurements Intervals [place] Rate: 114 P: [place]: 0 QRS: 85 QRSD: 106 T: 89 QT: 355 QTc: 491 Interpretive Statements ATRIAL FIBRILLATION WITH RAPID VENTRICULAR RESPONSE NONSPECIFIC ST & T-WAVE ABNORMALITY- INF/HIGH LAT LEADS ABNORMAL ECG Electronically Signed On 04-10-2020 12:58:37 [employer]LE[employer] SALES REPRESENTATIVE by Deondre Wise D.O.
--- NOTE | 2020-04-10 12:50 | SUR.PHASEII ---
BEGIN PHASE II RECOVERY POST UNSUCCESSFUL CARDIOVERSION W/ DR. CHRISTINE. PT. REMAINS IN HYBRID DERIVATIVES TRADER 7 FOR RECOVERY. INITIALLY CONVERTED TO SR, THEN AFTER 2 MINUTES, RETURNED TO AFIB BEFORE EKG COULD BE COMPLETED. CAPTURED ON TELEMETRY STRIPS AND PLACED IN CHART. PT. TOLERATED PROCEDURE WELL. VSS. WILL CONTINUE TO MONITOR.
--- NOTE | 2020-04-10 13:50 | SUR.PHASEII ---
END PHASE II RECOVERY S/P UNSUCCESSFUL CARDIOVERSION W/ DR. CHRISTINE. PT. RECEIVED TOTAL 60MG IVP PROPOFOL ADMINISTERED BY DR. CHRISTINE DURING PROCEDURE. NOW FULLY AWAKE AND ALERT. VSS. ON ROOM AIR. HAS BEEN UPDATED ON OUTCOME OF PROCEDURE. CONTINUES TO REST IN BED AT THIS TIME. RETURN TO [facility] CHARTING AT THIS TIME.
--- NOTE | 2020-04-10 13:51 | PC.NURSE ---
RETURN TO [facility] CHARTING POST UNSUCCESSFUL CARDIOVERSION. DENIES PAIN OR SOB. ON ROOM AIR. DANGLES FEET, LOUNGES IN BED WITHOUT COMPLAINT. WILL CONTINUE TO MONITOR.
--- NOTE | 2020-04-10 14:28 | PM.PNCARD ---
Progress Note: A&P Additional Plan 60-year-old man admitted to the hospital chest Pain Center because of atypical scapular pain acute coronary syndrome ruled out Has previous history of single-vessel bypass, aortic valve replacement and mitral valve repair Has recurrent atrial fibrillation started on Multaq last week in the outpatient setting. Because he is in the hospital I attempted to electrically restore sinus rhythm this afternoon. This was successful but only lasted a couple of minutes and now he is back in atrial fib. Discuss this with the patient obviously Multaq will not be effective for him I am going to stop this and he agrees to resume amiodarone treatment which he was hesitant to do in the outpatient setting. It seems that that he will have to either except chronic atrial fibrillation or try another cardioversion after being orally loaded with amiodarone. Resume amiodarone at 200 mg q.12 hours starting with this evening's dose. The reason he was brought to the chest Pain Center was because of the scapular pain which is clearly not ischemic in nature. In my opinion he can be discharged for follow-up with Dr. Hunter the office and plans can be made to consider cardioversion again in approximately a month or so after taking amiodarone for a while Jose Manuel Hendricks MD [facility] Subjective Date/time seen: 04/10/20 14:28 Interval history: 60-year-old man with: Valvular heart disease/coronary artery disease previous single-vessel bypass grafting, aortic valve replacement and mitral valve repair. Recurrent, problematic atrial fibrillation Cardioverted to sinus rhythm this morning which lasted for 2 minutes and then reverted back to atrial fib Asymptomatic this afternoon hoping to be discharged Exam Const: General: comfortable and no acute distress HENMT: Mouth: Yes moist mucous membranes Eyes: Sclera: sclerae normal Pupils: Equal, round and reactive pupils present Neck: Neck: supple and no JVD Resp: Effort & Inspection: normal respiratory effort Auscultation: clear to auscultation bilaterally Cardio: Rhythm: abnormal rhythm irregularly irregular GI: GI Palp: Yes Soft to palpation Auscultation: normal bowel sounds Skin: General skin exam: normal color Neuro: Cognition (Neuro): normal cognition Extrem: General: normal to inspection Objective Data Vital Signs Vital Signs: Vital Signs - 24 hr 04/09/20 16:24 04/09/20 16:25 04/09/20 16:41 Temperature 37.1 C Pulse Rate 129 H 129 H 115 H Respiratory Rate 13 Blood Pressure 142/77 H Pulse Oximetry 98 04/09/20 17:01 04/09/20 17:23 04/09/20 17:35 Temperature Pulse Rate 114 H 115 H 105 H Respiratory Rate 30 H 18 20 Blood Pressure Pulse Oximetry 100 100 04/09/20 18:31 04/09/20 18:33 04/09/20 18:54 Temperature Pulse Rate 107 H 108 H 124 H Respiratory Rate 16 15 18 Blood Pressure 161/130 H Pulse Oximetry 100 100 04/09/20 19:00 04/09/20 19:01 04/09/20 19:15 Temperature Pulse Rate 111 H 113 H 108 H Respiratory Rate 18 17 18 Blood Pressure 111/92 H 120/89 Pulse Oximetry 83 L 87 L 04/09/20 19:16 04/09/20 19:30 04/09/20 19:31 Temperature Pulse Rate 116 H 127 H 101 H Respiratory Rate 12 31 H 14 Blood Pressure 126/114 H Pulse Oximetry 04/09/20 20:00 04/09/20 22:00 04/09/20 22:20 Temperature 36.5 C Pulse Rate 103 H 120 H 101 H Respiratory Rate 16 16 Blood Pressure 144/96 H Pulse Oximetry 98 98 04/10/20 00:00 04/10/20 02:00 04/10/20 04:00 Temperature 36.7 C 36.8 C Pulse Rate 122 H 115 H 110 H Respiratory Rate 16 16 Blood Pressure 116/95 H 120/93 H Pulse Oximetry 98 99 04/10/20 06:00 04/10/20 09:50 04/10/20 10:01 Temperature Pulse Rate 115 H 129 H 134 H Respiratory Rate Blood Pressure Pulse Oximetry Intake/Output Intake/Output: Intake & Output 04/07/20 04/08/20 04/09/20 04/10/20 23:59 23:59 23:59 23:59 Intake Total 1050 Output Total 850 Balance
[2020-04-10 15:54] LABS: Glucose Point of Care 145 (65-105)
--- NOTE | 2020-04-10 16:00 | PM.DS ---
DS: Admitting Diagnosis Admitting Diagnosis Admitting Diagnosis: Chief Complaint: Chest pain DS: Discharge Diagnosis Discharge Diagnosis (1) Atrial fibrillation with RVR: Code(s): I48.91 - Unspecified atrial fibrillation Status: Acute (2) Chest pain: Qualifiers: Chest pain type: unspecified Qualified Code(s): R07.9 - Chest pain, unspecified Code(s): R07.9 - Chest pain, unspecified Status: Acute (3) Diabetes mellitus: Qualifiers: Diabetes mellitus type: type 2 Diabetes mellitus long-term insulin use: with long-term use Diabetes mellitus complication status: with other specified complication Qualified Code(s): E11.69 - Type 2 diabetes mellitus with other specified complication; Z79.4 - terminal makeup operator (current) use of insulin Code(s): E11.9 - Type 2 diabetes mellitus without complications Status: Acute (4) Elevated d-dimer: Code(s): R79.89 - Other specified abnormal findings of blood chemistry Status: Acute (5) Hypoxia: Code(s): R09.02 - Hypoxemia Status: Acute DS: Summary Hospital Course Reason for hospitalization: Chief Complaint: Chest pain Narrative: Dustin Angel is a 60 year old male with a past medical history of dementia, type 2 diabetes, CHF, and atrial fibrillation who presented to the ER with chest pain. The patient report he was lying in bed around 3:30 p.m. when he started having pain between his shoulder blades accompanied by some nausea. He reports that the pain was fluttering and achy in nature. It was accompanied by sudden onset of shortness of breath. The symptoms lasted until just before he came to the hospital at which time his pain resolved. Reported that some fluttering sensation was still present. When he arrived to the ER he was in AFib RVR with heart rates in the 130s. He denies any cough or congestion. Shortness of breath a subsequently resolved. He has not been having any lower extremity swelling. He denies orthopnea. This episode did sound a bit as if he may have been having some paroxysmal nocturnal dyspnea. He does have obstructive sleep apnea and is post wear BiPAP at night but only does so intermittently. He was not wearing BiPAP at the time of onset of symptoms. He follows with Dr. Nichole who recently added Multaq to the patient's cardiac medications. He has also on metoprolol 200 mg p.o. daily. Since admission to the chest pains and the patient has had variable heart rates ranging between the low 100s up to 130. He has had not had a recurrence of his chest pain symptoms. IV Cardizem and 1 dose of IV Lopressor. Congestion. He has not had any fevers or chills. When he arrived to the ER he was hypoxic with a pulse ox of 83%. Improved to 90% on 2 L and he has been weaned down to 1 L nasal cannula and satting 98% currently. Hospital Course: Patient with history of atrial fibrillation on Multaq presented emergency department with atrial fibrillation RVR patient was seen his cardiology was taken to the woods laborer for cardioversion, patient did convert to sinus rhythm unfortunately it only lasted for little while and patient went back into A. fibrillation, his brand marketing coordinator recommended that Multaq is not working for the patient and recommended to start the patient on amiodarone and has agreed to take the medication as he was reluctant in the past, patient started on amiodarone his clinically stable will discharge the patient today to follow-up with brand marketing coordinator in 2 weeks, Status at Discharge Functional status at discharge: independent ambulation Overall status at discharge: patient is back to baseline Time Spent with Patient Time attestation: Total time spent providing and/or coordinating discharge services: Patient was seen and examined at the time of the discharge Condition at discharge is stable Code status: Full code. Time spent preparing discharge summary, discharge medications, discussing discharge planning with ca
--- NOTE | 2020-04-10 16:45 | PC.NURSE ---
PLAN DISCHARGE HOME SOON ORDERS COMPLETE FROM HOSPITALIST. VSS. PT. WILL BE DISCHARGED HOME ON AMIODARONE AND MULTAQ IS DISCONTINUED.
--- NOTE | 2020-04-10 17:30 | PC.NURSE ---
DISCHARGE INSTRUCTIONS GIVEN AND REVIEWED W/ PT. ALL QUESTIONS ANSWERED. VOICED UNDERSTANDING. DISCHARGED HOME, OUT VIA WC TO [employer] WAITING CAR WITH DISCHARGE PACKET AND ALL PERSONAL BELONGINGS. REVIEWED DISCHARGE INSTRUCTIONS W/ [facility]/[address]. VOICED UNDERSTANDING. NO DISTRESS NOTED. NO C/O VOICED.
== END 2020-04-10 17:30 | disposition home or self-care (01) ==
LOC: ANHED 18:22 → ANHCPC 04-10 11:43
PROVIDERS: Internal Medicine; Specialist; Admitting Provider Internal Medicine; Emergency Provider Emergency Medicine; PCP Nurse Practitioner Family; Visit Provider Family Medicine
PROC: 5A2204Z Restoration of Cardiac Rhythm, Single (ICD-10-PCS; principal; 2020-04-10 12:30)
DX: I48.91 Unspecified atrial fibrillation (principal); R07.9 Chest pain, unspecified; R06.02 Shortness of breath; R09.02 Hypoxemia; R79.1 Abnormal coagulation profile; I13.0 Hypertensive heart and chronic kidney disease with heart failure and stage 1 through stage 4 chronic kidney disease, or unspecified chronic kidney disease; N18.4 Chronic kidney disease, stage 4 (severe); I50.20 Unspecified systolic (congestive) heart failure; J44.9 Chronic obstructive pulmonary disease, unspecified; F03.90 Unspecified dementia, unspecified severity, without behavioral disturbance, psychotic disturbance, mood disturbance, and anxiety; E11.22 Type 2 diabetes mellitus with diabetic chronic kidney disease; E78.5 Hyperlipidemia, unspecified; E03.9 Hypothyroidism, unspecified; G47.33 Obstructive sleep apnea (adult) (pediatric); E11.40 Type 2 diabetes mellitus with diabetic neuropathy, unspecified; N40.0 Benign prostatic hyperplasia without lower urinary tract symptoms; D64.9 Anemia, unspecified; Z95.3 Presence of xenogenic heart valve; Z95.1 Presence of aortocoronary bypass graft; Z95.820 Peripheral vascular angioplasty status with implants and grafts; Z87.891 Personal history of nicotine dependence; Z79.02 Long term (current) use of antithrombotics/antiplatelets; Z79.01 Long term (current) use of anticoagulants; Z79.4 Long term (current) use of insulin; Z86.73 Personal history of transient ischemic attack (TIA), and cerebral infarction without residual deficits
CPT/HCPCS: 36415; 71046; 80048; 83735; 84484; 85025; 85027; 85380; 85610; 85730; 92960; 93005; 96374; 96375; 99285; A9270; G0378; J2704; J7040

== ENCOUNTER 2020-04-20 18:03 | Emergency (ER) | payer MEDICARE, MEDICAID, SELFPAY ==
--- NOTE | 2020-04-20 18:12 | ECG_ITS ---
Measurements Intervals [place] Rate: 98 P: [place]: 0 QRS: 73 QRSD: 101 T: 96 QT: 402 QTc: 515 Interpretive Statements ATRIAL FIBRILLATION VENTRICULAR PREMATURE COMPLEX NONSPECIFIC ST & T-WAVE ABNORMALITY- INF/HIGH LAT LEADS BASELINE WANDER- II, III, AVF ABNORMAL ECG Electronically Signed On 04-21-2020 7:05:18 [employer] SALES REPRESENTATIVE AND ASSESSOR by Deondre Wise D.O.
[2020-04-20 18:59] VITALS: BP 147/92; PULSE 92; RESP 16; TEMP 36.1; O2SAT 99
[2020-04-20 19:28] LABS: Eosinophils Absolute Auto 0.1 K/mm3 (0-0.3); Eosinophils Percent Auto 1.7 % (0-4.4); Hematocrit 30.2 % (42.0-52.0); Hemoglobin 9.5 g/dL (14.0-18.0); Immature Granulocyte Absolute 0.04 K/mm3 (0.00-0.031); Immature Granulocyte Percent A 0.5 % (0-0.5); Lymphocytes Absolute Auto 1.42 K/mm3 (0.9-3.2); Lymphocytes Percent Auto 18.7 % (18.3-44.2); Mean Corpuscular HGB Conc 31.5 g/dl (32-36); Mean Corpuscular Hemoglobin 27.3 pg (26-34); Mean Corpuscular Volume 86.8 fl (80-100); Mean Platelet Volume 10.1 fl (7.4-10.4); Monocytes Absolute Auto 0.6 K/mm3 (0.1-0.6); Monocytes Percent Auto 7.8 % (2.6-8.5); Neutrophils Absolute Auto 5.4 K/mm3 (1.3-6.7); Neutrophils Percent Auto 71.3 % (45.5-73.1); Platelet Count Result 107 k/mm3 (150-375); Red Blood Count 3.48 M/mm3 (4.6-6.20); Red Cell Distribution Width 15.6 % (11.5-14.5); White Blood Count 7.6 K/mm3 (4.5-10.0)
[2020-04-20 19:30] VITALS: BP 124/68; PULSE 82; RESP 17; O2SAT 97
[2020-04-20 19:39] LABS: Anion Gap 7 mmol/L (8-16); Blood Urea Nitrogen 52 mg/dL (9-20); Calcium 8.9 mg/dL (8.4-10.2); Carbon Dioxide 31 mmol/L (22-30); Chloride 102 mmol/L (98-107); Estimated CRCL calculation 20 ml/min; Estimated Glomerular Filt Rate 16; Glucose 156 mg/dL (75-110); Potassium 3.6 mmol/L (3.4-5.0); Sodium 140 mmol/L (137-145)
--- NOTE | 2020-04-20 20:15 | ED.SEIZURE ---
HPI - Seizure General Chief Complaint: Seizure Stated Complaint: SYNCOPE Time Seen by Provider: 04/20/20 19:25 Source: family Mode of arrival: EMS Limitations: clinical condition and dementia History of Present Illness HPI Narrative: 60-year-old male History is all from his History of multiple strokes, sounds like mostly lacunar strokes, and of an onset of seizures about 3 or 4 months ago He follows with a neurologist elsewhere but is seen Dr. Mendez here He was started on valproic acid after his initial seizure presentation and his been taking it as far as she knows Tonight while at home he had another generalized seizure episode Unclear exactly how long it lasted but 's impression was that it was a fairly long time and that there was a lengthy postictal period as well although the patient is baseline at this time There are currently no new neurologic deficits noted or complained of There were no oral injuries or tongue biting but he was incontinent of urine Seizure History: Yes (last 04/08/20) Related Data Home Medications Medication Instructions Recorded Confirmed clopidogrel 75 mg PO DAILY 11/12/19 04/09/20 metoprolol succinate 200 mg PO DAILY 11/12/19 04/09/20 rosuvastatin 20 mg PO DAILY 11/12/19 04/09/20 tamsulosin 0.4 mg PO HS 11/12/19 04/09/20 duloxetine 60 mg PO DAILY 11/13/19 04/09/20 pantoprazole 40 mg PO DAILY 11/13/19 04/09/20 docusate sodium 100 mg PO BID 01/01/20 04/09/20 ferrous sulfate [Iron (ferrous 142 mg PO DAILY 01/01/20 04/09/20 sulfate)] furosemide 40 mg PO EVERY OTHER DAY 01/01/20 04/09/20 levothyroxine 125 mcg PO DAILY 01/01/20 04/09/20 Adults Multivitamin 1 tablet PO DAILY 04/09/20 04/09/20 Narcan 1 spray INTRANASAL PRN PRN 04/09/20 04/09/20 apixaban 5 mg PO BID 04/09/20 04/09/20 evolocumab 140 mg SUBCUT [id number] 04/09/20 04/09/20 famotidine 20 mg PO BID 04/09/20 04/09/20 finasteride 5 mg PO DAILY 04/09/20 04/09/20 fluticasone propionate 1 spray INTRANASAL BID PRN 04/09/20 04/09/20 furosemide 80 mg PO EVERY OTHER DAY 04/09/20 04/09/20 hydroxyzine HCl 25 mg PO TID PRN 04/09/20 04/09/20 insulin aspart U-100 [Novolog 5 unit SUBCUT HS 04/09/20 04/09/20 PenFill U-100 Insulin] prochlorperazine maleate 10 mg PO Q6H PRN 04/09/20 04/09/20 [Compazine] quetiapine 150 mg PO HS 04/09/20 04/09/20 Allergies Allergy/AdvReac Type Severity Reaction Status Date / Time Penicillins Allergy Unknown Rash Verified 04/09/20 16:27 tramadol Allergy Rash Verified 04/09/20 16:27 [facility] Past Medical History Medical History (Updated 04/20/20 @ 21:26 by Aquiles Alcala MD) Atrial fibrillation Bowel obstruction 2011 BPH (benign prostatic hyperplasia) Chronic anemia CKD (chronic kidney disease) stage 4, GFR 15-29 ml/min With baseline creatinine 2.8 in 3.5 Congestive heart failure Systolic congestive heart failure COPD (chronic obstructive pulmonary disease) CVA (cerebrovascular accident) Subacute right frontal temporal parietal infarct noted on CT 11/12/2019 Deficient knowledge of open reduction and internal (ORIF) fixation of hip Left on 11/14/2019 Dementia With hallucinations and episodes of agitation Diabetes Endocarditis GERD (gastroesophageal reflux disease) Hyperlipidemia Hypertension Hypothyroidism Obstructive sleep apnea Intermittent use of BiPAP Peripheral neuropathy Surgical History Surgical History (Updated 04/10/20 @ 03:08 by Nette Randolph DO) H/O aortic valve replacement with porcine valve Bioprosthetic valve due to severe aortic regurgitation performed at [place] August 2018 H/O mitral valve repair August 2018 at [place] History of bunionectomy of both great toes History of colonoscopy with polypectomy S/P CABG x 29 August 2018 [place] graft to the LAD S/P ORIF (open reduction internal fixation) fracture left hip October 2019 S/P peripheral artery angioplasty with stent placement a total of 7 stents between both of his legs. Family History Family History (Rev
[2020-04-20 20:32] LABS: Valproic Acid 44.3 ug/mL (50-120)
[2020-04-20 20:56] VITALS: BP 155/80; PULSE 91
[2020-04-20 20:57] VITALS: BP 135/86; PULSE 87
[2020-04-20 20:59] VITALS: BP 105/65; PULSE 93
[2020-04-20] MEDS: DIVALPROEX SODIUM ER 500 MG TAB PO (21:21)
[2020-04-20 21:26] VITALS: BP 159/55; PULSE 63; RESP 20; O2SAT 99
[2020-04-20] MEDS: diphenhydrAMINE HCl CAP 25 MG CAPSULE PO (21:40)
== END 2020-04-20 21:40 | disposition home or self-care (01) ==
PROVIDERS: Emergency Provider Emergency Medicine; PCP Nurse Practitioner Family
DX: G40.909 Epilepsy, unspecified, not intractable, without status epilepticus (principal); T42.6X5A Adverse effect of other antiepileptic and sedative-hypnotic drugs, initial encounter; I48.91 Unspecified atrial fibrillation; N40.0 Benign prostatic hyperplasia without lower urinary tract symptoms; D63.1 Anemia in chronic kidney disease; E11.22 Type 2 diabetes mellitus with diabetic chronic kidney disease; I13.0 Hypertensive heart and chronic kidney disease with heart failure and stage 1 through stage 4 chronic kidney disease, or unspecified chronic kidney disease; N18.4 Chronic kidney disease, stage 4 (severe); I50.9 Heart failure, unspecified; Z87.891 Personal history of nicotine dependence; Z79.4 Long term (current) use of insulin; J44.9 Chronic obstructive pulmonary disease, unspecified; Z86.73 Personal history of transient ischemic attack (TIA), and cerebral infarction without residual deficits; F03.90 Unspecified dementia, unspecified severity, without behavioral disturbance, psychotic disturbance, mood disturbance, and anxiety; K21.9 Gastro-esophageal reflux disease without esophagitis; E03.9 Hypothyroidism, unspecified; G47.33 Obstructive sleep apnea (adult) (pediatric); E11.42 Type 2 diabetes mellitus with diabetic polyneuropathy; I25.10 Atherosclerotic heart disease of native coronary artery without angina pectoris; Z95.2 Presence of prosthetic heart valve; Z95.1 Presence of aortocoronary bypass graft; Z95.5 Presence of coronary angioplasty implant and graft; I49.3 Ventricular premature depolarization; R94.31 Abnormal electrocardiogram [ECG] [EKG]
CPT/HCPCS: 36415; 80048; 80164; 85025; 93005; 99284; A9270

== ENCOUNTER 2020-05-01 16:25 | Outpatient (CLI) | payer MEDICARE, MEDICAID, SELFPAY ==
[2020-05-01 17:41] LABS: Anion Gap 10 mmol/L (8-16); Blood Urea Nitrogen 47 mg/dL (9-20); Calcium 9.3 mg/dL (8.4-10.2); Carbon Dioxide 31 mmol/L (22-30); Chloride 103 mmol/L (98-107); Estimated Glomerular Filt Rate 17; Glucose 139 mg/dL (75-110); Potassium 3.8 mmol/L (3.4-5.0); Sodium 144 mmol/L (137-145)
[2020-05-01 21:18] LABS: Valproic Acid 73.6 ug/mL (50-120)
== END 2020-05-01 16:26 | disposition home or self-care (01) ==
LOC: ANHLAB 16:29
PROVIDERS: PCP Nurse Practitioner Family; Visit Provider Internal Medicine Cardiovascular Disease
DX: G40.909 Epilepsy, unspecified, not intractable, without status epilepticus (principal); I50.32 Chronic diastolic (congestive) heart failure
CPT/HCPCS: 36415; 80048; 80164

== ENCOUNTER 2020-05-12 12:12 | Inpatient (IN) | payer MEDICARE, MEDICAID, SELFPAY ==
[2020-05-12] VITALS (12 sets, daily range): BP systolic 141–162; BP diastolic 55–100; PULSE 77–102; RESP 14–20; TEMP 36.1–36.6; O2SAT 94–100; BMI 26.2
--- NOTE | ~2020-05-12 | CT_ITS ---
EXAMINATION: CT brain wo con DATE: 05/12/2020 12:59 INDICATION: Altered mental status TECHNIQUE: Computed tomography (CT) of the head was performed without intravenous contrast. The dose- length product was 605.33 mGy-cm. Automated exposure control and iterative reconstruction technique w ere employed. COMPARISON: CT dated 01/07/2020 FINDINGS: There are chronic right frontal and parietal infarctions. No ventriculomegaly or midline sh ift. Basilar cisterns are patent. No acute intracranial hemorrhage, infarction, mass or mass effect. There is intracranial atherosclerosis. Mild generalized atrophy. There are scattered mild periventric ular and subcortical white matter changes, most likely related to small vessel ischemic disease (micr oangiopathy). IMPRESSION: 1. No acute intracranial abnormality. 2: Chronic right frontal and parietal infarctions. Reviewed, dictated and finalized at location B. RTAINMENT MANAGER
--- NOTE | ~2020-05-12 | MR_ITS ---
EXAMINATION: MR cervical spine wo con EXAM DATE: 05/18/2020 12:27 INDICATION: Increasing weakness. TECHNIQUE: Multi-sequential, multiplanar MR images of the cervical spine were obtained without contra st. Axial T2, axial T2 MERGE sequence. Sagittal T1, T2, T2 fat saturation images also obtained. Th ere is no prior study for comparison. FINDINGS: The vertebral bodies are aligned in the AP dimension. There is moderate to severe disc dis ease C5-6, moderate at C6-7, mild at the other cervical levels. The spinal cord signal intensity and intrinsic morphology is normal. Cervicomedullary junction is normal in appearance. Paraspinal soft ti ssue is unremarkable. Level by level evaluation: Study is limited due to patient motion. C2-C3: Disc does not extend beyond the endplate margin. Uncovertebral joint arthropathy: Mild right. Facet joint arthropathy: Mild to moderate bilateral. Neural foraminal stenosis: Mild bilateral. Central canal stenosis: No stenosis. C3-C4: There is a mild diffuse disc bulge. Uncovertebral joint arthropathy: Mild to moderate bilateral. Facet joint arthropathy: Moderate bilateral. Neural foraminal stenosis: Moderate right, mild to moderate left. Central canal stenosis: Mild. C4-C5: There is a mild to moderate diffuse disc bulge. Spinal cord being mildly flattened without si gnal change, chronic compression. Uncovertebral joint arthropathy: Moderate right, mild to moderate left. Facet joint arthropathy: Moderate bilateral. Neural foraminal stenosis: Moderate to severe right, mild left. Central canal stenosis: Mild to moderate . Central canal measures 6 mm in mid sagittal AP diameter . C5-C6: There is a mild diffuse disc bulge. Uncovertebral joint arthropathy: Severe right, moderate to severe left. Facet joint arthropathy: Mild to moderate bilateral. Neural foraminal stenosis: Moderate to severe left, moderate right. Central canal stenosis: Mild. C6-C7: There is a mild diffuse disc bulge. Uncovertebral joint arthropathy: Severe bilateral. Facet joint arthropathy: Mild bilateral. Neural foraminal stenosis: Moderate to severe bilateral. Central canal stenosis: Mild. C7-T1: There is a mild diffuse disc bulge. Uncovertebral joint arthropathy: Moderate bilateral. Facet joint arthropathy: Mild to moderate bilateral. Neural foraminal stenosis: Mild bilateral. Central canal stenosis: Mild. IMPRESSION: 1. Advanced cervical spondylosis as detailed above. Reviewed, dictated and finalized at location A. F WEAPONS OFFICER
--- NOTE | ~2020-05-12 | MR_ITS ---
EXAMINATION: MR thoracic spine wo con EXAM DATE: 05/18/2020 12:27 INDICATION: Increasing weakness. TECHNIQUE: Multi-sequential, multiplanar MR images of the thoracic spine were obtained without contra st. Sagittal T1, T2, T2 fat saturation, axial T2 weighted images reviewed. There is no prior study for comparison. FINDINGS: There are no suspicious marrow signal abnormalities. The vertebral bodies are aligned in th e AP dimension. There is mild diffuse thoracic disc disease. Thoracic central canal and neural forame n are widely patent. The spinal cord signal intensity and intrinsic morphology is normal. Paraspinal soft tissue is unremarkable. Mild to moderate diffuse thoracic facet arthropathy. IMPRESSION: Mild thoracic disc disease, mild to moderate arthropathy. Reviewed, dictated and finalized at location A. [place] MERCHANDISING MANAGER
--- NOTE | ~2020-05-12 | MR_ITS ---
EXAMINATION: MR lumbar spine wo con EXAM DATE: 05/18/2020 12:27 INDICATION: Weakness. TECHNIQUE: Multi-sequential, multiplanar MR images of the lumbar spine were obtained without contrast . Sagittal T1, T2, T2 fat saturation images. Axial T2 weighted images. Correlation is made to lumba r x-ray 2017. FINDINGS: There is mild to moderate disc disease at L5-S1, mild at L2-3 and L4-5. The vertebral mateus s are aligned in the AP dimension. The conus medullaris terminates at the L1/2 level and has normal s ignal intensity and morphology. There are no suspicious marrow signal abnormalities. Paraspinal soft tissue is unremarkable. Annular fissure at L4-5. Several left renal lesions, imaged portions are con sistent with cysts. Level by level evaluation: T12-L1: Disc does not extend beyond the endplate margin. Facet arthropathy: Mild bilateral. Neural foraminal stenosis: No stenosis. Central canal stenosis: No stenosis. L1-L2: There is a minimal diffuse disc bulge. Facet arthropathy: Mild to moderate bilateral. Neural foraminal stenosis: No stenosis. Central canal stenosis: No stenosis. L2-L3: There is a moderate diffuse disc bulge. Facet arthropathy: Mild to moderate. Neural foraminal stenosis: Mild bilateral. Central canal stenosis: Mild. L3-L4: There is a moderate diffuse disc bulge. Facet arthropathy: Mild to moderate. Neural foraminal stenosis: Mild to moderate bilateral. Central canal stenosis: Mild. L4-L5: There is a moderate to large diffuse disc bulge. Facet arthropathy: Mild to moderate bilateral. Neural foraminal stenosis: Mild to moderate bilateral. Central canal stenosis: Mild to moderate. Narrowing of the lateral recesses. L5-S1: There is a large diffuse disc bulge. Facet arthropathy: Mild to moderate. Neural foraminal stenosis: Mild to moderate bilateral. Central canal stenosis: Mild to moderate. IMPRESSION: 1. Overall mild to moderate lumbar spondylosis. Reviewed, dictated and finalized at location A. ERER
--- NOTE | 2020-05-12 12:32 | ECG_ITS ---
Measurements Intervals [place] Rate: 82 P: WI: 0 QRS: 122 QRSD: 175 T: 23 QT: 454 QTc: 532 Interpretive Statements ATRIAL FIBRILLATION RIGHT AXIS DEVIATION RIGHT BUNDLE BRANCH BLOCK BORDERLINE ST-T WAVE ABNORMALITY- ANTEROLATERAL LEADS ABNORMAL ECG Electronically Signed On 05-12-2020 12:59:32 TWISTER DOFFER by Deondre Wise D.O.
--- NOTE | 2020-05-12 12:41 | ED.WEAKNESS ---
HPI - Weakness General Chief complaint: Weakness Stated complaint: weakness Source: family Mode of arrival: EMS Limitations: altered mental status History of Present Illness HPI Narrative: A 60-year-old male comes into the emergency department today with complaints of weakness and altered mental status. His is his primary caregiver and states that she is giving most of the history. She notes that the patient does have some baseline dementia but seems far more confused beyond his normal. She also notes that he has been very weak. Even with the aid of the home health nurse that patient still collapsed and was not able to hold up his own weight. His states that he has been unable to eat. She notes that this is very abnormal for him. She does note that he has a history of strokes. She notes that they have all been silent and has not presented with any kind of symptoms. 60 she notes that the patient has not eaten or drank anything the last several days and this is very abnormal for him. Patient was recently started on new medication, carbamazepine on last Friday his symptoms started Friday. She is uncertain if this may be causing his problems. Related Data Home Medications Medication Instructions Recorded Confirmed clopidogrel 75 mg PO DAILY 11/12/19 04/09/20 metoprolol succinate 200 mg PO DAILY 11/12/19 04/09/20 rosuvastatin 20 mg PO DAILY 11/12/19 04/09/20 tamsulosin 0.4 mg PO HS 11/12/19 04/09/20 duloxetine 60 mg PO DAILY 11/13/19 04/09/20 pantoprazole 40 mg PO DAILY 11/13/19 04/09/20 docusate sodium 100 mg PO BID 01/01/20 04/09/20 ferrous sulfate [Iron (ferrous 142 mg PO DAILY 01/01/20 04/09/20 sulfate)] furosemide 40 mg PO EVERY OTHER DAY 01/01/20 04/09/20 levothyroxine 125 mcg PO DAILY 01/01/20 04/09/20 Adults Multivitamin 1 tablet PO DAILY 04/09/20 04/09/20 Narcan 1 spray INTRANASAL PRN PRN 04/09/20 04/09/20 apixaban 5 mg PO BID 04/09/20 04/09/20 evolocumab 140 mg SUBCUT [id number] 04/09/20 04/09/20 famotidine 20 mg PO BID 04/09/20 04/09/20 finasteride 5 mg PO DAILY 04/09/20 04/09/20 fluticasone propionate 1 spray INTRANASAL BID PRN 04/09/20 04/09/20 furosemide 80 mg PO EVERY OTHER DAY 04/09/20 04/09/20 hydroxyzine HCl 25 mg PO TID PRN 04/09/20 04/09/20 insulin aspart U-100 [Novolog 5 unit SUBCUT HS 04/09/20 04/09/20 PenFill U-100 Insulin] prochlorperazine maleate 10 mg PO Q6H PRN 04/09/20 04/09/20 [Compazine] quetiapine 150 mg PO HS 04/09/20 04/09/20 carbamazepine 200 mg PO BID 05/12/20 melatonin 3 mg PO HS PRN 05/12/20 [id number] K tablet PO 05/12/20 [Adults Multivitamin] Allergies Allergy/AdvReac Type Severity Reaction Status Date / Time Penicillins Allergy Unknown Rash Verified 05/12/20 12:25 tramadol Allergy Rash Verified 05/12/20 12:25 Review of Systems Review of Systems: ROS unobtainable: Yes unobtainable due to medical condition and unobtainable due to mental status PMFSH Past Medical History Medical History Atrial fibrillation Bowel obstruction 2011 BPH (benign prostatic hyperplasia) Chronic anemia CKD (chronic kidney disease) stage 4, GFR 15-29 ml/min With baseline creatinine 2.8 in 3.5 Congestive heart failure Systolic congestive heart failure COPD (chronic obstructive pulmonary disease) CVA (cerebrovascular accident) Subacute right frontal temporal parietal infarct noted on CT 11/12/2019 Deficient knowledge of open reduction and internal (ORIF) fixation of hip Left on 11/14/2019 Dementia With hallucinations and episodes of agitation Diabetes Endocarditis GERD (gastroesophageal reflux disease) Hyperlipidemia Hypertension Hypothyroidism Obstructive sleep apnea Intermittent use of BiPAP Peripheral neuropathy Surgical History Surgical History H/O aortic valve replacement with porcine valve Bioprosthetic valve due to severe aortic regurgitation pe
[2020-05-12] MEDS: LACTATED RINGERS 1,000 ML 999 ML IV CONT (12:42)
[2020-05-12 13:26] LABS: Add Urine Microscopic? YES; Appearance Urine Clear (Clear); Bilirubin Urine Negative (Negative); Blood Urine Negative (Negative); Color Urine Yellow (Yellow); Glucose Urine UA Negative (Negative); Ketones Urine Negative (Negative); Leukocyte Esterase Ur Negative LEU/UL (Negative); Mucus Urine Rare /lpf; Nitrate Urine Negative (Negative); Protein Urine 3+ mg/dL (Negative); Specific Grav Ur 1.013 (1.001-1.035); Squamous Epithelial Cell Urine Rare /hpf (Few); Urobilinogen Urine Negative mg/dL (<2.0); WBC Urine 0-3 /hpf
[2020-05-12 13:40] LABS: Amphetamine Screen Urine Negative (Negative); Barbiturate Screen Urine Negative (Negative); Benzodiazepines Screen Urine Negative (Negative); Cannabinoid Screen Urine Negative (Negative); Cocaine Screen Urine Negative (Negative); Methadone Screen Urine Negative (Negative); Opiate Screen Urine Negative (Negative); Phencyclidine Screen Urine Negative (Negative)
[2020-05-12 13:56] LABS: Eosinophils Absolute Auto 0.1 K/mm3 (0-0.3); Eosinophils Percent Auto 1.3 % (0-4.4); Hematocrit 31.6 % (42.0-52.0); Immature Granulocyte Absolute 0.02 K/mm3 (0.00-0.031); Immature Granulocyte Percent A 0.4 % (0-0.5); Lymphocytes Percent Auto 19.9 % (18.3-44.2); Mean Corpuscular HGB Conc 31.6 g/dl (32-36); Mean Corpuscular Hemoglobin 27.2 pg (26-34); Mean Corpuscular Volume 86.1 fl (80-100); Monocytes Absolute Auto 0.4 K/mm3 (0.1-0.6); Monocytes Percent Auto 7.8 % (2.6-8.5); Neutrophils Absolute Auto 3.9 K/mm3 (1.3-6.7); Neutrophils Percent Auto 70.6 % (45.5-73.1); Platelet Count Result 96 k/mm3 (150-375); Red Blood Count 3.67 M/mm3 (4.6-6.20); Red Cell Distribution Width 15.8 % (11.5-14.5); White Blood Count 5.5 K/mm3 (4.5-10.0)
[2020-05-12 14:10] LABS: Alanine Aminotransferase 12 U/L (4-50); Albumin Level 4.1 g/dL (3.5-5.1); Alkaline Phosphatase 155 U/L (38-126); Anion Gap 8 mmol/L (8-16); Aspartate Amino Transferase 29 U/L (17-59); Bilirubin,Total 0.6 mg/dL (0.2-1.3); Blood Urea Nitrogen 41 mg/dL (9-20); Calcium 9.4 mg/dL (8.4-10.2); Carbon Dioxide 32 mmol/L (22-30); Chloride 103 mmol/L (98-107); Creatine Kinase 47 U/L (55-170); Estimated Glomerular Filt Rate 16; Glucose 123 mg/dL (75-110); Potassium 3.7 mmol/L (3.4-5.0); Sodium 143 mmol/L (137-145)
[2020-05-12 14:21] LABS: Troponin I 0.019 ng/mL (0.000-0.034)
[2020-05-12 15:28] LABS: Thyroid Stimulating Hormone Reflex < 0.015 uIU/mL (0.465-4.68)
[2020-05-12 15:54] LABS: Free T4 Free Thyroxine Reflex 1.78 ng/dL (0.78-2.19)
[2020-05-12 16:14] LABS: Valproic Acid 49.8 ug/mL (50-120)
--- NOTE | 2020-05-12 16:40 | ADMGEN ---
This patient, Dustin Angel, was admitted to Medical Room 344-01. Patient/family oriented to hospital policies and general routines including ID bracelet, bed and alarms, visiting hours, pain management, procedures, bathroom and other care routines, personal items, smoking policy, room service/diet, and visiting hours. Information on how to activate the Rapid Response Team has been discussed. Patient/Family are encouraged to report perceived risks to care and to ask questions if they do not understand what they are told or what they should do.
[2020-05-12 16:54] LABS: Total Triiodothyronine (T3) 0.55 NG/ML (0.97-1.69)
[2020-05-12 18:38] LABS: Troponin I < 0.012 ng/mL (0.000-0.034)
--- NOTE | 2020-05-12 22:20 | PM.IMHP ---
H&P: HPI History of Present Illness Date/Time: 05/12/20 22:20 Chief Complaint: Confusion Narrative: Dustin Angel is a 60 year old male who has a history of seizure disorder, coronary artery disease, atrial fibrillation, and dementia. The patient lives at home with his significant other. She brought him in today because of an altered mental status. The significant other was giving most of the information today. The patient is now wide awake and trying to get out of bed. The patient does not understand why he is here in the hospital and he is wanting to go home. The patient was just in the emergency room on 04/20/2020 for possible seizure. Patient had a prolonged postictal. At that time. He sees Dr. Mendez. Patient was discharged from ER at that time to see his neurologist the next day for medication adjustment. This Today was a different kind of confusion then his dementia. The patient has home health. Today the patient was noted to be very weak and even with a home health nurse there the patient still collapse and was not able to hold up his own weight. The patient was started on new medication carbamazepine this past Friday and his symptoms of weakness started this past Friday. He has had multiple strokes. He has been very quiet lately and has not been eating or drinking very well which is abnormal for him.. Chronic right frontal and parietal infarctions. His baseline with a GFR 16. His glucose is 123. Troponins have been negative x2. His T3 was slightly low and to his TSH was slightly low. The patient was started on IV fluids for dehydration. Keppra and carbamazepine levels were sent out labs. Patient is being admitted to observation on the date of service of 05/12/2020 Review of Systems Review of Systems: ROS unobtainable: Yes unobtainable due to mental status Constitutional: Constitutional: Reports as per HPI and Reports no additional constitutional complaints Eyes: Eyes: Reports as per HPI and Reports no additional eye complaints ENT: Reports system reviewed and no additional complaints, except as documented and Reports Normal hearing present Cardiovascular: Cardiovascular: Reports no additional cardiovascular complaints Respiratory: Respiratory: Reports no additional respiratory complaints and Reports no additional respiratory complaints Gastrointestinal: Gastrointestinal: Reports as per HPI and Reports no additional gastrointestinal complaints Musculoskeletal: Musculoskeletal: Reports no additional musculoskeletal complaints Integumentary/Breasts: Skin/Breast: Reports system reviewed and no additional complaints, except as docu and Reports as per HPI Neurologic: Reports system reviewed and no additional complaints, except as documented, Reports as per HPI and Reports Normal hearing present Psychiatric: Psychiatric: Reports no additional psychiatric complaints and Reports as per HPI Endocrine: Endocrine: Reports no additional endocrine complaints Hematologic/Lymphatic: Hematologic/Lymphatic: Reports no additional hematologic/lymphatic complaints Allergic/Immunologic: Allergic/Immunologic: Reports no additional allergic/immunologic complaints [facility] Past Medical History Medical History (Updated 05/12/20 @ 22:33 by Celine Martines NP) Atrial fibrillation Bowel obstruction 2011 BPH (benign prostatic hyperplasia) Chronic anemia CKD (chronic kidney disease) stage 4, GFR 15-29 ml/min With baseline creatinine 2.8 in 3.5 Congestive heart failure Systolic congestive heart failure COPD (chronic obstructive pulmonary disease) CVA (cerebrovascular accident) Subacute right frontal temporal parietal infarct noted on CT 11/12/2019 Deficient knowledge of open reduction and internal (ORIF) fixation of hip Left on 11/14/2019 Dementia With hallucinations and episodes of agitation Diabetes Endocarditis GERD (gastroesophageal reflux disease) Hyperlipidemia Hypertension Hypothyroidism Obstructive sleep apnea Inte
[2020-05-12 22:40] LABS: Troponin I < 0.012 ng/mL (0.000-0.034)
[2020-05-12] MEDS: APIXABAN 5 MG TABLET PO (23:04)
[2020-05-12] MEDS: MELATONIN 3 MG TABLET PO (23:04)
[2020-05-12] MEDS: QUEtiapine FUMARATE XR 50 MG TAB.ER.24H 150 MG PO (23:05)
[2020-05-12] MEDS: METOPROLOL SUCCINATE EXT REL 100 MG TABCR 200 MG PO (23:05)
[2020-05-12] MEDS: CARBAMAZEPINE XR 200 MG TAB.ER.12H PO (23:08)
[2020-05-12] MEDS: DIVALPROEX SODIUM DR 250 MG TABEC PO (23:08)
[2020-05-12] MEDS: TAMSULOSIN HCL 0.4 MG CAPSULE PO (23:09)
[2020-05-12] MEDS: ROSUVASTATIN 10 MG TABLET 20 MG PO (23:10)
[2020-05-12] MEDS: AMIODARONE HCL 200 MG TABLET PO (23:11)
[2020-05-13] VITALS (8 sets, daily range): BP systolic 134–170; BP diastolic 72–99; PULSE 73–80; RESP 12–17; TEMP 36–36.8; O2SAT 96–100
[2020-05-13 00:30] LABS: Glucose Point of Care 117 (65-105)
[2020-05-13] MEDS: LEVOTHYROXINE SODIUM 125 MCG TABLET PO (05:56)
[2020-05-13 06:19] LABS: Basophils Percent Auto 0.2 % (0.2-1.2); Eosinophils Absolute Auto 0.1 K/mm3 (0-0.3); Eosinophils Percent Auto 1.7 % (0-4.4); Hematocrit 29.7 % (42.0-52.0); Hemoglobin 9.4 g/dL (14.0-18.0); Immature Granulocyte Absolute 0.02 K/mm3 (0.00-0.031); Immature Granulocyte Percent A 0.3 % (0-0.5); Lymphocytes Absolute Auto 1.96 K/mm3 (0.9-3.2); Lymphocytes Percent Auto 34.1 % (18.3-44.2); Mean Corpuscular HGB Conc 31.6 g/dl (32-36); Mean Corpuscular Hemoglobin 26.7 pg (26-34); Mean Corpuscular Volume 84.4 fl (80-100); Mean Platelet Volume 10.2 fl (7.4-10.4); Monocytes Absolute Auto 0.6 K/mm3 (0.1-0.6); Monocytes Percent Auto 9.9 % (2.6-8.5); Neutrophils Absolute Auto 3.1 K/mm3 (1.3-6.7); Neutrophils Percent Auto 53.8 % (45.5-73.1); Platelet Count Result 105 k/mm3 (150-375); Red Blood Count 3.52 M/mm3 (4.6-6.20); Red Cell Distribution Width 15.5 % (11.5-14.5); White Blood Count 5.7 K/mm3 (4.5-10.0)
[2020-05-13 06:35] LABS: Anion Gap 7 mmol/L (8-16); Blood Urea Nitrogen 41 mg/dL (9-20); Calcium 9.1 mg/dL (8.4-10.2); Carbon Dioxide 30 mmol/L (22-30); Chloride 104 mmol/L (98-107); Estimated CRCL calculation 25 ml/min; Estimated Glomerular Filt Rate 19; Glucose 106 mg/dL (75-110); Potassium 3.1 mmol/L (3.4-5.0); Sodium 141 mmol/L (137-145)
[2020-05-13 06:44] LABS: Hemoglobin A1C 5.6 % (<5.7)
[2020-05-13] MEDS: APIXABAN 5 MG TABLET PO ×2 (08:49→20:12)
[2020-05-13] MEDS: FAMOTIDINE 20 MG TABLET PO ×2 (08:49→18:22)
[2020-05-13] MEDS: DOCUSATE SODIUM 100 MG CAPSULE PO ×2 (08:50→18:22)
[2020-05-13] MEDS: PANTOPRAZOLE 40 MG TABLET PO (08:50)
[2020-05-13] MEDS: DULoxetine HCL 60 MG CAPSULE.DR PO (08:50)
[2020-05-13] MEDS: FINASTERIDE 5 MG TABLET PO (08:50)
[2020-05-13] MEDS: MULTIVITAMINS /C LUTEIN (CENTRUM SILVER) TABLET *BKC 1 TAB PO (08:50)
[2020-05-13] MEDS: CLOPIDOGREL BISULFATE 75 MG TABLET PO (08:50)
[2020-05-13] MEDS: AMIODARONE HCL 200 MG TABLET PO ×2 (08:51→20:12)
[2020-05-13] MEDS: DIVALPROEX SODIUM DR 250 MG TABEC 500 MG PO (08:56)
[2020-05-13] MEDS: CARBAMAZEPINE XR 200 MG TAB.ER.12H PO (08:57)
[2020-05-13 09:01] LABS: Glucose Point of Care 96 (65-105)
[2020-05-13] MEDS: POTASSIUM CHLORIDE 20 MEQ TABLET 40 MEQ PO (09:01)
--- NOTE | 2020-05-13 11:35 | PM.IMPN ---
Progress Note: A&P Assessment and Plan (1) Acute delirium: Code(s): R41.0 - Disorientation, unspecified Status: Acute Assessment and Plan: Patient has history of dementia and has history of becoming agitated at times. His describes that he is normally up and walking and talking but a lot of times does not make sense. She describes in the last 1 week, he has become more confused. In the last 3 days, she has noticed he has trouble standing, walking, and following simple commands. She describes it does not seem like he has weakness, but rather poor comprehension as if he does not remember how to do these tasks. He was recently started on Tegretol 05/08/20 and his noted these worsening symptoms 2 days following the initiation of new Tegretol. Neurology consulted. He is a patient of Dr Tolentinos. I discussed the case with Dr Mendez and he recommends stopping Tegretol and continuing with his increased dose of Depakote. Dr. Mendez recommends EEG Friday. Hopeful this is a delirium that may improve with stopping new medication, however it is possible his symptoms are a result of progressing dementia. Will continue to monitor during these medication changes for any improvement. PT/OT. CT brain with evidence of his old strokes, without any evidence of acute intracranial abnormalities. (2) Dementia: Qualifiers: Dementia type: unspecified type Dementia behavioral disturbance: with behavioral disturbance Qualified Code(s): F03.91 - Unspecified dementia with behavioral disturbance Code(s): F03.90 - Unspecified dementia without behavioral disturbance Status: Chronic Assessment and Plan: See above. He remains on his home Depakote, Seroquel. (3) CAD (coronary artery disease) of artery bypass graft: Qualifiers: [place] vs. transplanted heart: [place] heart Associated angina: without angina Qualified Code(s): I25.810 - Atherosclerosis of coronary artery bypass graft(s) without angina pectoris Code(s): I25.810 - Atherosclerosis of coronary artery bypass graft(s) without angina pectoris Status: Chronic Assessment and Plan: Stable. History of cardiac valve replacement and coronary stent placement. He remains on his home Plavix and Eliquis, metoprolol. (4) Atrial fibrillation: Qualifiers: Atrial fibrillation type: unspecified Qualified Code(s): I48.91 - Unspecified atrial fibrillation Code(s): I48.91 - Unspecified atrial fibrillation Status: Chronic Assessment and Plan: Cardioversion attempted 04/10/2020, unsuccessful converted back to AFib. Continue his amiodarone and Eliquis. He is a patient of Dr. Hunter. (5) CKD stage 4 due to type 1 diabetes mellitus: Code(s): E10.22 - Type 1 diabetes mellitus with diabetic chronic kidney disease; N18.4 - Chronic kidney disease, stage 4 (severe) Status: Acute Assessment and Plan: The patient is at his baseline please continue to monitor. (6) Hypothyroidism: Qualifiers: Hypothyroidism type: unspecified Qualified Code(s): E03.9 - Hypothyroidism, unspecified Code(s): E03.9 - Hypothyroidism, unspecified Status: Chronic Assessment and Plan: Patient's thyroid level was slightly low. I am unsure if the patient has been taking his medication as prescribed. For now will continue with the same dose of levothyroxine. (7) COPD (chronic obstructive pulmonary disease): Qualifiers: COPD type: unspecified COPD Qualified Code(s): J44.9 - Chronic obstructive pulmonary disease, unspecified Code(s): J44.9 - Chronic obstructive pulmonary disease, unspecified Status: Chronic Assessment and Plan: Continue with home medications. (8) Congestive heart failure:
[2020-05-13 12:13] LABS: Glucose Point of Care 190 (65-105)
[2020-05-13] MEDS: FUROSEMIDE 40 MG TABLET PO (13:17)
--- NOTE | 2020-05-13 14:07 | WPDNEURCNPN ---
Assessment and Plan Assessment and plan (1) Seizure: Code(s): R56.9 - Unspecified convulsions Status: Chronic (2) Acute delirium: Code(s): R41.0 - Disorientation, unspecified Status: Acute (3) Hallucinations: Code(s): R44.3 - Hallucinations, unspecified Status: Acute Additional Plan multifactorial with atrial fibrillation, dementia, and considering the possibility of infarction in the right frontal lobe and secondary frontal lobe disorder was started on carbamazepine which she was unable to handle will continue the increasing dosage of the Depakote obviously he should not be driving Consult date: 05/13/20 Time Seen: 12:30 HPI: Dustin Angel is a 60 year old male admitted to the hospital for the complaints of confusion in addition to history of 1. Seizure disorder 3. Dementia 4. Living at home with significant other patient himself was unable to understand why he was in the hospital he wanted to go home he had been in the emergency room on April 20, 2020 for possible seizures when he was noted to have prolonged postictal. Patient was seen in the ER Mouna noted leave very weak and was not able to hold himself up on his lower extremities patient had been started on carbamazepine only 200 mg twice a day in addition to all his other medication but that medication was discontinued he has not been eating or drinking very well and has been documented to have right frontal and parietal infarction in the past . head CT scan was compatible with chronic right frontal and parietal lobe infarction but no other abnormalities. has had MRI of the brain on January 01, 2020 when it was documented small to moderate sized acute to subacute infarction in the right frontal lobe addition to 3 a dish in small regions of encephalomalacia consistent with chronic infarcts in the right frontal lobe, that time carotid study was unrewarding and also echocardiogram was not abnormal, at this stage is being continued on the apixaban 5 mg q.12 hours carbamazepine will be discontinued his taking Depakote 500 mg daily which will be increased further and will also obtain an EEG Review of Systems Review of Systems: All systems reviewed & are unremarkable except as noted in HPI and below PMFSH Past Medical History Medical History Atrial fibrillation Bowel obstruction 2011 BPH (benign prostatic hyperplasia) Chronic anemia CKD (chronic kidney disease) stage 4, GFR 15-29 ml/min With baseline creatinine 2.8 in 3.5 Congestive heart failure Systolic congestive heart failure COPD (chronic obstructive pulmonary disease) CVA (cerebrovascular accident) Subacute right frontal temporal parietal infarct noted on CT 11/12/2019 Deficient knowledge of open reduction and internal (ORIF) fixation of hip Left on 11/14/2019 Dementia With hallucinations and episodes of agitation Diabetes Endocarditis GERD (gastroesophageal reflux disease) Hyperlipidemia Hypertension Hypothyroidism Obstructive sleep apnea Intermittent use of BiPAP Peripheral neuropathy Seizure Surgical History Surgical History H/O aortic valve replacement with porcine valve Bioprosthetic valve due to severe aortic regurgitation performed at [place] August 2018 H/O mitral valve repair August 2018 at [place] History of bunionectomy of both great toes History of colonoscopy with polypectomy S/P CABG x 29 August 2018 [place] graft to the LAD S/P ORIF (open reduction internal fixation) fracture left hip October 2019 S/P peripheral artery angioplasty with stent placement a total of 7 stents between both of his legs. Family History Family History Father Family history of liver disease Mother Family history of heart disease in male family member before age 55 Sibling Acute myocardial infarction Social History Social History (Reviewed
[2020-05-13 17:14] LABS: Glucose Point of Care 108 (65-105)
[2020-05-13] MEDS: QUEtiapine FUMARATE XR 50 MG TAB.ER.24H 150 MG PO (20:12)
[2020-05-13] MEDS: DIVALPROEX SODIUM DR 250 MG TABEC PO (20:13)
[2020-05-13] MEDS: ROSUVASTATIN 10 MG TABLET 20 MG PO (20:14)
[2020-05-13] MEDS: METOPROLOL SUCCINATE EXT REL 100 MG TABCR 200 MG PO (20:14)
[2020-05-13] MEDS: MELATONIN 3 MG TABLET PO (20:14)
[2020-05-13] MEDS: TAMSULOSIN HCL 0.4 MG CAPSULE PO (20:15)
[2020-05-13 21:21] LABS: Glucose Point of Care 120 (65-105)
[2020-05-14 05:36] VITALS: BP 176/97; PULSE 64; RESP 16; TEMP 36.3; O2SAT 97
[2020-05-14] MEDS: LEVOTHYROXINE SODIUM 125 MCG TABLET PO (05:43)
[2020-05-14 05:47] LABS: Alanine Aminotransferase 18 U/L (4-50); Alkaline Phosphatase 161 U/L (38-126); Anion Gap 10 mmol/L (8-16); Aspartate Amino Transferase 36 U/L (17-59); Bilirubin,Total 0.5 mg/dL (0.2-1.3); Blood Urea Nitrogen 40 mg/dL (9-20); Calcium 9.3 mg/dL (8.4-10.2); Carbon Dioxide 30 mmol/L (22-30); Chloride 102 mmol/L (98-107); Creatine Kinase 48 U/L (55-170); Estimated CRCL calculation 23 ml/min; Estimated Glomerular Filt Rate 17; Glucose 126 mg/dL (75-110); Magnesium 2.1 mg/dL (1.6-2.3); Phosphorus 3.3 mg/dL (2.5-4.5); Potassium 3.9 mmol/L (3.4-5.0); Sodium 142 mmol/L (137-145)
[2020-05-14 05:55] LABS: Basophils Percent Auto 0.1 % (0.2-1.2); Eosinophils Absolute Auto 0.2 K/mm3 (0-0.3); Eosinophils Percent Auto 2.2 % (0-4.4); Hematocrit 31.2 % (42.0-52.0); Hemoglobin 9.7 g/dL (14.0-18.0); Immature Granulocyte Absolute 0.03 K/mm3 (0.00-0.031); Immature Granulocyte Percent A 0.4 % (0-0.5); Lymphocytes Absolute Auto 1.94 K/mm3 (0.9-3.2); Lymphocytes Percent Auto 28.7 % (18.3-44.2); Mean Corpuscular HGB Conc 31.1 g/dl (32-36); Mean Corpuscular Hemoglobin 26.4 pg (26-34); Monocytes Absolute Auto 0.5 K/mm3 (0.1-0.6); Monocytes Percent Auto 7.3 % (2.6-8.5); Neutrophils Absolute Auto 4.1 K/mm3 (1.3-6.7); Neutrophils Percent Auto 61.3 % (45.5-73.1); Platelet Count Result 123 k/mm3 (150-375); Red Blood Count 3.67 M/mm3 (4.6-6.20); Red Cell Distribution Width 15.6 % (11.5-14.5); White Blood Count 6.8 K/mm3 (4.5-10.0)
[2020-05-14 07:38] LABS: Glucose Point of Care 106 (65-105)
[2020-05-14 08:00] VITALS: PULSE 67; RESP 16; O2SAT 97
[2020-05-14] MEDS: FUROSEMIDE 80 MG TABLET PO (09:21)
[2020-05-14] MEDS: DULoxetine HCL 60 MG CAPSULE.DR PO (09:21)
[2020-05-14] MEDS: FAMOTIDINE 20 MG TABLET PO ×2 (09:21→16:30)
[2020-05-14] MEDS: APIXABAN 5 MG TABLET PO ×2 (09:22→20:52)
[2020-05-14] MEDS: DIVALPROEX SODIUM DR 250 MG TABEC 500 MG PO (09:22)
[2020-05-14] MEDS: MULTIVITAMINS /C LUTEIN (CENTRUM SILVER) TABLET *BKC 1 TAB PO (09:22)
[2020-05-14] MEDS: DOCUSATE SODIUM 100 MG CAPSULE PO ×2 (09:22→18:31)
[2020-05-14 09:23] VITALS: PULSE 67
[2020-05-14] MEDS: PANTOPRAZOLE 40 MG TABLET PO (09:23)
[2020-05-14] MEDS: CLOPIDOGREL BISULFATE 75 MG TABLET PO (09:23)
[2020-05-14] MEDS: FINASTERIDE 5 MG TABLET PO (09:23)
[2020-05-14] MEDS: AMIODARONE HCL 200 MG TABLET PO ×2 (09:23→20:54)
[2020-05-14 11:22] LABS: Glucose Point of Care 107 (65-105)
[2020-05-14] MEDS: ACETAMINOPHEN 500 MG TABLET 1000 MG PO (12:10)
[2020-05-14 14:00] VITALS: BP 136/85; PULSE 82; RESP 16; TEMP 36; O2SAT 96
--- NOTE | 2020-05-14 14:23 | PM.IMPN ---
Progress Note: A&P Assessment and Plan (1) Acute delirium: Code(s): R41.0 - Disorientation, unspecified Status: Acute Assessment and Plan: Patient has history of dementia and has history of becoming confused with hallucinations at times. His describes that he is normally up and walking and talking but a lot of times does not make sense. She describes in the last 1 week, he has become more confused. In the last 3 days, she has noticed he has trouble standing, walking, and following simple commands. She describes it does not seem like he has weakness, but rather poor comprehension as if he does not remember how to do these tasks (standing, walking, chewing/swallowing food). He was recently started on Tegretol 05/08/20 and his noted these worsening symptoms 2 days following the initiation of new Tegretol. Neurology consulted. He is a patient of Dr Mendez's. I discussed the case with Dr Mendez yesterday and he recommended stopping Tegretol and continuing with his increased dose of Depakote. Dr. Mendez recommends EEG Friday. Depakote level was just below therapeutic range on arrival. is concerned with why his level is dropping despite being on increased dose. Tegretol level is a send-out lab and is still pending. Hopeful this is a delirium that may improve with stopping new medication, however it is possible his symptoms are a result of progressing dementia. Will continue to monitor during these medication changes for any improvement. PT/OT. CT brain with evidence of his old strokes, without any evidence of acute intracranial abnormalities. (2) Seizure: Code(s): R56.9 - Unspecified convulsions Status: Chronic Assessment and Plan: Patient had first tonic-clonic seizure in December 2019 and has been maintained on Depakote. He did have another seizure on 04/20/2020, Depakote level was low at that time, and followed up with Dr. Mendez outpatient. At that time his Depakote dose was increased in addition to being started on a new Tegretol 05/08/2020. These new symptoms seem to be correlated with the same time line of starting the new Tegretol which could be contributing. See above, Tegretol has been stopped. Further medication adjustments per Dr. Mendez. EEG Friday. Seizure precautions initiated. (3) Dementia: Qualifiers: Dementia type: unspecified type Dementia behavioral disturbance: with behavioral disturbance Qualified Code(s): F03.91 - Unspecified dementia with behavioral disturbance Code(s): F03.90 - Unspecified dementia without behavioral disturbance Status: Chronic Assessment and Plan: See above. He remains on his home Depakote, Seroquel. (4) CAD (coronary artery disease) of artery bypass graft: Qualifiers: [place] vs. transplanted heart: [place] heart Associated angina: without angina Qualified Code(s): I25.810 - Atherosclerosis of coronary artery bypass graft(s) without angina pectoris Code(s): I25.810 - Atherosclerosis of coronary artery bypass graft(s) without angina pectoris Status: Chronic Assessment and Plan: Stable. History of cardiac valve replacement and coronary stent placement. He remains on his home Plavix and Eliquis, metoprolol. (5) Atrial fibrillation: Qualifiers: Atrial fibrillation type: unspecified Qualified Code(s): I48.91 - Unspecified atrial fibrillation Code(s): I48.91 - Unspecified atrial fibrillation Status: Chronic Assessment and Plan: Cardioversion attempted 04/10/2020, unsuccessful converted back to AFib. Continue his amiodarone and Eliquis. He is a patient of Dr. Hunter. (6) CKD stage 4 due to type 1 diabetes mellitus: Code(s): E10.22 - Type
[2020-05-14 16:25] LABS: Glucose Point of Care 128 (65-105)
[2020-05-14 19:42] VITALS: BP 169/95; PULSE 76; RESP 14; TEMP 36; O2SAT 100
[2020-05-14] MEDS: ROSUVASTATIN 10 MG TABLET 20 MG PO (20:51)
[2020-05-14] MEDS: TAMSULOSIN HCL 0.4 MG CAPSULE PO (20:51)
[2020-05-14] MEDS: MELATONIN 3 MG TABLET PO (20:52)
[2020-05-14 20:54] VITALS: PULSE 76
[2020-05-14] MEDS: DIVALPROEX SODIUM DR 250 MG TABEC 750 MG PO (20:54)
[2020-05-14] MEDS: QUEtiapine FUMARATE XR 50 MG TAB.ER.24H 150 MG PO (20:55)
[2020-05-14] MEDS: METOPROLOL SUCCINATE EXT REL 100 MG TABCR 200 MG PO (20:55)
[2020-05-15] MEDS: LEVOTHYROXINE SODIUM 125 MCG TABLET PO (05:35)
[2020-05-15 05:42] VITALS: BP 117/66; PULSE 77; RESP 14; TEMP 36.8; O2SAT 100
[2020-05-15 06:24] LABS: Alanine Aminotransferase 21 U/L (4-50); Albumin Level 4.1 g/dL (3.5-5.1); Alkaline Phosphatase 180 U/L (38-126); Anion Gap 9 mmol/L (8-16); Aspartate Amino Transferase 35 U/L (17-59); Bilirubin,Total 0.5 mg/dL (0.2-1.3); Blood Urea Nitrogen 40 mg/dL (9-20); Calcium 9.3 mg/dL (8.4-10.2); Carbon Dioxide 30 mmol/L (22-30); Chloride 101 mmol/L (98-107); Estimated CRCL calculation 22 ml/min; Estimated Glomerular Filt Rate 16; Glucose 115 mg/dL (75-110); Potassium 3.4 mmol/L (3.4-5.0); Sodium 140 mmol/L (137-145)
[2020-05-15 08:02] LABS: Glucose Point of Care 99 (65-105)
[2020-05-15 09:27] VITALS: PULSE 60
[2020-05-15] MEDS: AMIODARONE HCL 200 MG TABLET PO ×2 (09:27→20:31)
[2020-05-15] MEDS: POTASSIUM CHLORIDE 20 MEQ PACKET (FOR LIQUID) PO (09:27)
[2020-05-15] MEDS: APIXABAN 5 MG TABLET PO ×2 (09:28→20:30)
[2020-05-15] MEDS: DOCUSATE SODIUM 100 MG CAPSULE PO ×2 (09:28→16:33)
[2020-05-15] MEDS: FAMOTIDINE 20 MG TABLET PO ×2 (09:28→16:33)
[2020-05-15] MEDS: DULoxetine HCL 60 MG CAPSULE.DR PO (09:28)
[2020-05-15] MEDS: FINASTERIDE 5 MG TABLET PO (09:28)
[2020-05-15] MEDS: CLOPIDOGREL BISULFATE 75 MG TABLET PO (09:28)
[2020-05-15] MEDS: DIVALPROEX SODIUM DR 250 MG TABEC 500 MG PO (09:28)
[2020-05-15] MEDS: PANTOPRAZOLE 40 MG TABLET PO (09:29)
[2020-05-15] MEDS: FUROSEMIDE 40 MG TABLET PO (09:29)
[2020-05-15] MEDS: MULTIVITAMINS /C LUTEIN (CENTRUM SILVER) TABLET *BKC 1 TAB PO (09:29)
--- NOTE | 2020-05-15 11:10 | WPDNEUROLOGY ---
Neurology EEG Report General Information Date of Study: 05/15/20 TEST eeg DIAGNOSIS seizure disorder CONDITION OF RECORDING Awake drowsy and sleep EEG NUMBER [id number] CLINICAL HISTORY patient unable to communicate why he is here but EEG ordered by the physician for the complaints of confusion along with the weakness and the history of seizure disorder EEG DESCRIPTION whole record consists of medium to high voltage 15 to 36 hertz per 2nd beta activity during wakefulness and drowsiness. Bihemispheric sleep activity is seen superimposed by beta activity. Hyperventilation not done photic stimulation not done. Non paroxysmal. Nonfocal. Nonlateralizing. IMPRESSION Abnormal record due to the presence of excessive amount of beta activity superimposed on underlying sleep activity as well. This tracing does not show any paroxysmal discharge throughout the tracing and also no focal elements. Clinical correlation recommended ,fast activity may be related to medications.
[2020-05-15 12:06] LABS: Glucose Point of Care 158 (65-105)
[2020-05-15 12:55] LABS: Levetiracetam Keppra <1.0 mcg/mL (12.0-46.0)
--- NOTE | 2020-05-15 12:59 | WPDNEUROPN ---
Progress Note: A&P Additional Plan status post right frontal lobe stroke with intermittent change in the personality raising the possibility of frontal lobe seizure patient is being treated with the anticonvulsants .he was unable to handle carbamazepine, will continue as such Review of Systems Review of Systems: All systems reviewed & are unremarkable except as noted in HPI and below Exam Const: General: healthy appearing and no acute distress Nutritional Appearance: average body habitus Limitations: behavioral limitations HENMT: Head: normocephalic Ears: hearing grossly normal bilaterally General nose exam: Normal external nose present Face and sinus: normal facial exam Mouth: Yes Normal oral and palatal mucosa present Eyes: EOM: EOMs intact bilaterally Resp: Effort & Inspection: normal respiratory effort Cardio: Rate: regular rate Rhythm: regular rhythm GI: Auscultation: normal bowel sounds Neuro: General: oriented to person and oriented to place Cranial nerves: Yes CN's II-XII intact bilaterally Cognition (Neuro): normal cognition Motor exam (neuro): 5/5 motor strength present throughout Sensory Exam: normal sensation Deep tendon reflexes (DTR's): Right triceps reflex intensity grade: 1+, Left triceps reflex intensity grade: 1+, Rt Biceps (C5, C6): 1+, Left biceps reflex intensity grade: 1+, Right brachioradialis reflex intensity grade: 1+, Left brachioradialis reflex intensity grade: 1+, Right patellar reflex intensity grade: 1+, Left patellar reflex intensity grade: 1+, Right ankle reflex intensity grade: 1+ and Left ankle reflex intensity grade: 1+ Plantar Reflex Responses: downgoing: bilateral Coordination: [id number] test normal Psych: Appearance: grossly normal Objective Data Vital Signs Vital Signs: Vital Signs - 24 hr 05/14/20 14:00 05/14/20 19:42 05/14/20 20:54 Temperature 36.0 C L 36.0 C L Pulse Rate 82 76 76 Respiratory Rate 16 14 Blood Pressure 136/85 169/95 H Pulse Oximetry 96 100 05/15/20 05:42 05/15/20 09:27 Temperature 36.8 C Pulse Rate 77 60 Respiratory Rate 14 Blood Pressure 117/66 Pulse Oximetry 100 Intake/Output Intake/Output: Intake & Output 05/12/20 05/13/20 05/14/20 05/15/20 23:59 23:59 23:59 23:59 Intake Total 1480 400 930 440 Output Total 200 600 Balance 1480 200 930 -160 Meds/Results Medications: Active Medications Generic Name Dose Route Start Last Admin Trade Name Freq PRN Reason Stop Dose Admin Acetaminophen 1,000 mg 05/14/20 11:51 05/14/20 12:10 Acetaminophen 500 Mg Tablet PO 1,000 mg Q6H PRN Administration Pain or Fever Amiodarone HCl 200 mg 05/12/20 22:20 05/15/20 09:27 Amiodarone Hcl 200 Mg Tablet PO 200 mg Q12HR BEN Administration Apixaban 5 mg 05/12/20 22:30 05/15/20 09:28 Apixaban 5 Mg Tablet PO 5 mg Q12HR BEN Administration Clopidogrel Bisulfate 75 mg 05/13/20 09:00 05/15/20 09:28 Clopidogrel Bisulfate 75 Mg Tablet PO 75 mg DAILY BEN Administration Dextrose 12.5 gm 05/12/20 22:32 Dextrose 50% 25 Gm/50 Ml Syringe IV PUSH PRN PRN Hypoglycemia Protocol Divalproex Sodium 500 mg 05/13/20 09:00 05/15/20 09:[address] 250 Mg Tabec PO 500 mg DAILY BEN Administration Divalproex Sodium 750 mg 05/14/20 21:00 05/14/20 20:[address] 250 Mg Tabec PO 750 mg HS BEN Administration Docusate Sodium 100 mg 05/13/20 09:00 05/15/20 09:28 Docusate Sodium 100 Mg Capsule PO 100 mg BID BEN Administration Duloxetine HCl 60 mg 05/13/20 09:00 05/15/20 09:28 Duloxetine Hcl 60 Mg Caps[address].Dr PO 60 mg DAILY BEN Administration Famotidine 20 mg 05/13/20 09:00 05/15/20 09:28 Famotidine 20 Mg Tablet PO 20 mg BID BEN Administration Finasteride 5 mg 05/13/20 09:00 05/15/20 09:28 Finasteride 5 Mg Tablet PO 5 mg DAILY BEN Administration Fluticasone Propionate 1 spray 05/12/20 22:17 Fluticas
[2020-05-15 14:00] VITALS: BP 121/77; PULSE 73; RESP 16; TEMP 36.2; O2SAT 100
--- NOTE | 2020-05-15 15:32 | PCSTNOTE ---
Bedside Swallow Evaluation not completed this date due to patient fatigue, falling asleep throughout communication evaluation. Will attempt tomorrow when more awake and alert when therapist present.
[2020-05-15 16:35] LABS: Glucose Point of Care 104 (65-105)
[2020-05-15 20:04] LABS: Glucose Point of Care 173 (65-105)
[2020-05-15 20:12] VITALS: BP 147/97; PULSE 77; RESP 14; TEMP 36.3; O2SAT 92
[2020-05-15 20:30] VITALS: PULSE 72
[2020-05-15] MEDS: DIVALPROEX SODIUM DR 250 MG TABEC 750 MG PO (20:30)
[2020-05-15] MEDS: ROSUVASTATIN 10 MG TABLET 20 MG PO (20:30)
[2020-05-15] MEDS: METOPROLOL SUCCINATE EXT REL 100 MG TABCR 200 MG PO (20:30)
[2020-05-15 20:31] VITALS: PULSE 72
[2020-05-15] MEDS: MELATONIN 3 MG TABLET PO (20:31)
[2020-05-15] MEDS: TAMSULOSIN HCL 0.4 MG CAPSULE PO (20:31)
[2020-05-15] MEDS: QUEtiapine FUMARATE XR 50 MG TAB.ER.24H 150 MG PO (20:31)
--- NOTE | 2020-05-15 20:58 | PM.IMPN ---
Progress Note: A&P Assessment and Plan (1) Acute delirium: Code(s): R41.0 - Disorientation, unspecified Status: Acute Assessment and Plan: Patient has history of dementia and has history of becoming confused with hallucinations at times. His describes that he is normally up and walking and talking but a lot of times does not make sense. She describes in the last 1 week, he has become more confused. 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 She describes it does not seem like he has weakness, but rather poor comprehension as if he does not remember how to do these tasks (standing, walking, chewing/swallowing food). He was recently started on Tegretol 05/08/20 and his noted these worsening symptoms 2 days following the initiation of new Tegretol. Neurology consulted. He is a patient of Dr Mendez's. I discussed the case with Dr Mendez he recommended stopping Tegretol and continuing with his increased dose of Depakote. EEG this morning. Depakote level was just below therapeutic range on arrival. is concerned with why his level is dropping despite being on increased dose. Tegretol level is a send-out lab and is still pending. While this could be a delirium that may improve with stopping new medication, it is quite possible his symptoms are a result of progressing dementia and chronic frontal lobe CVA. Will continue to monitor during these medication changes for any improvement. PT/OT. CT brain with evidence of his old strokes, without any evidence of acute intracranial abnormalities. (2) Seizure: Code(s): R56.9 - Unspecified convulsions Status: Chronic Assessment and Plan: Patient had first tonic-clonic seizure in December 2019 and has been maintained on Depakote. He did have another seizure on 04/20/2020, Depakote level was low at that time, and followed up with Dr. Mendez outpatient. At that time his Depakote dose was increased in addition to being started on a new Tegretol 05/08/2020. See above, Tegretol has been stopped. Further medication adjustments per Dr. Mendez. EEG today. Seizure precautions. (3) Dementia: Qualifiers: Dementia type: unspecified type Dementia behavioral disturbance: with behavioral disturbance Qualified Code(s): F03.91 - Unspecified dementia with behavioral disturbance Code(s): F03.90 - Unspecified dementia without behavioral disturbance Status: Chronic Assessment and Plan: See above. He remains on his home Depakote, Seroquel. (4) CAD (coronary artery disease) of artery bypass graft: Qualifiers: [place] vs. transplanted heart: [place] heart Associated angina: without angina Qualified Code(s): I25.810 - Atherosclerosis of coronary artery bypass graft(s) without angina pectoris Code(s): I25.810 - Atherosclerosis of coronary artery bypass graft(s) without angina pectoris Status: Chronic Assessment and Plan: Stable. History of cardiac valve replacement and coronary stent placement. He remains on his home Plavix and Eliquis, metoprolol. (5) Atrial fibrillation: Qualifiers: Atrial fibrillation type: unspecified Qualified Code(s): I48.91 - Unspecified atrial fibrillation Code(s): I48.91 - Unspecified atrial fibrillation Status: Chronic Assessment and Plan: Cardioversion attempted 04/10/2020, unsuccessful converted back to AFib. Continue his amiodarone and Eliquis. He is a patient of Dr. Hunter. (6) CKD stage 4 due to type 1 diabetes mellitus: Code(s): E10.22 - Type 1 diabetes mellitus with diabetic chronic kidney disease; N18.4 - Chronic kidney disease, stage 4 (severe) Status: Acut
[2020-05-16] VITALS (8 sets, daily range): BP systolic 134–140; BP diastolic 70–74; PULSE 57–111; RESP 17–20; TEMP 36.1–36.6; O2SAT 94–97
[2020-05-16 05:46] LABS: Basophils Percent Auto 0.1 % (0.2-1.2); Eosinophils Absolute Auto 0.1 K/mm3 (0-0.3); Eosinophils Percent Auto 1.4 % (0-4.4); Hematocrit 31.4 % (42.0-52.0); Immature Granulocyte Absolute 0.04 K/mm3 (0.00-0.031); Immature Granulocyte Percent A 0.5 % (0-0.5); Lymphocytes Absolute Auto 1.73 K/mm3 (0.9-3.2); Lymphocytes Percent Auto 22.3 % (18.3-44.2); Mean Corpuscular HGB Conc 31.8 g/dl (32-36); Mean Corpuscular Hemoglobin 27.2 pg (26-34); Mean Corpuscular Volume 85.6 fl (80-100); Mean Platelet Volume 9.8 fl (7.4-10.4); Monocytes Absolute Auto 0.6 K/mm3 (0.1-0.6); Monocytes Percent Auto 7.9 % (2.6-8.5); Neutrophils Absolute Auto 5.3 K/mm3 (1.3-6.7); Neutrophils Percent Auto 67.8 % (45.5-73.1); Platelet Count Result 118 k/mm3 (150-375); Red Blood Count 3.67 M/mm3 (4.6-6.20); Red Cell Distribution Width 15.7 % (11.5-14.5); White Blood Count 7.8 K/mm3 (4.5-10.0)
[2020-05-16] MEDS: LEVOTHYROXINE SODIUM 125 MCG TABLET PO (05:52)
[2020-05-16 07:44] LABS: Ammonia < 9 umol/L (9-30)
[2020-05-16 07:48] LABS: CRP 5.5 mg/dL (<1.0); Lactate Dehydrogenase 425 U/L (313-618)
[2020-05-16 08:01] LABS: Alanine Aminotransferase 19 U/L (4-50); Albumin Level 3.6 g/dL (3.5-5.1); Alkaline Phosphatase 161 U/L (38-126); Anion Gap 9 mmol/L (8-16); Aspartate Amino Transferase 49 U/L (17-59); Bilirubin,Total 0.4 mg/dL (0.2-1.3); Blood Urea Nitrogen 41 mg/dL (9-20); Calcium 8.7 mg/dL (8.4-10.2); Carbon Dioxide 27 mmol/L (22-30); Chloride 104 mmol/L (98-107); Estimated CRCL calculation 24 ml/min; Estimated Glomerular Filt Rate 18; Glucose 121 mg/dL (75-110); Potassium 3.3 mmol/L (3.4-5.0); Sodium 140 mmol/L (137-145)
[2020-05-16 08:03] LABS: Glucose Point of Care 135 (65-105)
[2020-05-16] MEDS: DOCUSATE SODIUM 100 MG CAPSULE PO ×2 (08:05→16:07)
[2020-05-16] MEDS: DIVALPROEX SODIUM DR 250 MG TABEC 500 MG PO (08:05)
[2020-05-16] MEDS: DULoxetine HCL 60 MG CAPSULE.DR PO (08:06)
[2020-05-16] MEDS: CLOPIDOGREL BISULFATE 75 MG TABLET PO (08:06)
[2020-05-16] MEDS: PANTOPRAZOLE 40 MG TABLET PO (08:06)
[2020-05-16] MEDS: AMIODARONE HCL 200 MG TABLET PO ×2 (08:06→20:03)
[2020-05-16] MEDS: APIXABAN 5 MG TABLET PO ×2 (08:06→20:06)
[2020-05-16] MEDS: FINASTERIDE 5 MG TABLET PO (08:07)
[2020-05-16] MEDS: FAMOTIDINE 20 MG TABLET PO ×2 (08:07→16:08)
[2020-05-16] MEDS: MULTIVITAMINS /C LUTEIN (CENTRUM SILVER) TABLET *BKC 1 TAB PO (08:07)
[2020-05-16] MEDS: FUROSEMIDE 80 MG TABLET PO (08:07)
[2020-05-16 12:12] LABS: Glucose Point of Care 149 (65-105)
--- NOTE | 2020-05-16 14:55 | WPDNEUROPN ---
Progress Note: A&P Assessment and Plan (1) Seizure: Code(s): R56.9 - Unspecified convulsions Status: Chronic (2) Acute delirium: Code(s): R41.0 - Disorientation, unspecified Status: Acute (3) Atrial fibrillation with RVR: Code(s): I48.91 - Unspecified atrial fibrillation Status: Acute (4) CAD (coronary artery disease) of artery bypass graft: Qualifiers: [place] vs. transplanted heart: [place] heart Associated angina: without angina Qualified Code(s): I25.810 - Atherosclerosis of coronary artery bypass graft(s) without angina pectoris Code(s): I25.810 - Atherosclerosis of coronary artery bypass graft(s) without angina pectoris Status: Chronic (5) COPD (chronic obstructive pulmonary disease): Qualifiers: COPD type: unspecified COPD Qualified Code(s): J44.9 - Chronic obstructive pulmonary disease, unspecified Code(s): J44.9 - Chronic obstructive pulmonary disease, unspecified Status: Chronic Additional Plan stable be continued as such Review of Systems Review of Systems: All systems reviewed & are unremarkable except as noted in HPI and below Exam Const: General: cooperative Orientation/consciousness: oriented to person and oriented to place HENMT: Head: normocephalic Mouth: Yes Normal oral and palatal mucosa present Eyes: General: appearance normal, both eyes and all related structures Neck: Neck: full ROM Resp: Effort & Inspection: able to speak in complete sentences Auscultation: clear to auscultation bilaterally Cardio: Rate: regular rate Rhythm: abnormal rhythm GI: Auscultation: normal bowel sounds Skin: General skin exam: no rashes or lesions noted Neuro: General: oriented to person and oriented to place Cognition (Neuro): normal cognition Speech: normal speech Motor exam (neuro): 5/5 motor strength present throughout Deep tendon reflexes (DTR's): Right triceps reflex intensity grade: 1+, Left triceps reflex intensity grade: 1+, Rt Biceps (C5, C6): 1+, Left biceps reflex intensity grade: 1+, Right brachioradialis reflex intensity grade: 1+, Left brachioradialis reflex intensity grade: 1+, Right patellar reflex intensity grade: 1+, Left patellar reflex intensity grade: 1+, Right ankle reflex intensity grade: 1+ and Left ankle reflex intensity grade: 1+ Plantar Reflex Responses: downgoing: bilateral Coordination: [id number] test normal Psych: Speech and movement: Normal speech and movement present Affect: normal affect Attitude: cooperative Thought process: Normal thought process present Thought content: Yes Normal thought content present Insight: Fair insight present (Psych) Judgement: Fair judgement present (Psych) Objective Data Vital Signs Vital Signs: Vital Signs - 24 hr 05/15/20 20:12 05/15/20 20:30 05/15/20 20:31 Temperature 36.3 C L Pulse Rate 77 72 72 Respiratory Rate 14 Blood Pressure 147/97 H Pulse Oximetry 92 05/16/20 06:00 05/16/20 07:56 05/16/20 08:06 Temperature 36.1 C L Pulse Rate 70 72 Respiratory Rate 18 Blood Pressure 134/70 Pulse Oximetry 97 94 Intake/Output Intake/Output: Intake & Output 05/13/20 05/14/20 05/15/20 05/16/20 23:59 23:59 23:59 23:59 Intake Total 964 441 8593 320 Output Total 200 600 Balance 758 612 7778 320 Meds/Results Medications: Active Medications Generic Name Dose Route Start Last Admin Trade Name Freq PRN Reason Stop Dose Admin Acetaminophen 1,000 mg 05/14/20 11:51 05/14/20 12:10 Acetaminophen 500 Mg Tablet PO 1,000 mg Q6H PRN Administration Pain or Fever Amiodarone HCl 200 mg 05/12/20 22:20 05/16/20 08:06 Amiodarone Hcl 200 Mg Tablet PO 200 mg Q12HR BEN Administration Apixaban 5 mg 05/12/20 22:30 05/16/20 08:06 Apixaban 5 Mg Tablet PO 5 mg Q12HR BEN Administration Clopidogrel Bisulfate 75 mg 05/13/20 09:00 05/16/20 08:06 Clopidogrel Bisulfate 75 Mg Tablet PO 75 mg
--- NOTE | 2020-05-16 15:51 | PM.IMPN ---
Progress Note: A&P Assessment and Plan (1) Acute delirium: Code(s): R41.0 - Disorientation, unspecified Status: Acute Assessment and Plan: Resolved -could be multifactorial with a combination of new medication carbamazepine, possible seizure, low Depakote level, and history of dementia -UA negative for infection -anion gap normal -Patient has history of dementia and has history of becoming confused with hallucinations at times. His describes that he is normally up and walking and talking but a lot of times does not make sense. She describes in the last 1 week, he has become more confused. 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 She describes it does not seem like he has weakness, but rather poor comprehension as if he does not remember how to do these tasks (standing, walking, chewing/swallowing food). -He was recently started on Tegretol 05/08/20 and his noted these worsening symptoms 2 days following the initiation of new Tegretol. -Neurology consulted. He is a patient of Dr Mendez's. -EEG pending -Tegretol level is a send-out lab and is still pending. -CT brain with evidence of his old strokes, without any evidence of acute intracranial abnormalities. -COVID less likely d/t normal inflammatory markers and no symptoms (2) Seizure: Code(s): R56.9 - Unspecified convulsions Status: Chronic Assessment and Plan: Patient had first tonic-clonic seizure in December 2019 and has been maintained on Depakote. He did have another seizure on 04/20/2020, Depakote level was low at that time, and followed up with Dr. Mendez outpatient. At that time his Depakote dose was increased in addition to being started on a new Tegretol 05/08/2020. See above, Tegretol has been stopped. -Further medication adjustments per Dr. Mendez. EEG pending (3) Dementia: Qualifiers: Dementia type: unspecified type Dementia behavioral disturbance: with behavioral disturbance Qualified Code(s): F03.91 - Unspecified dementia with behavioral disturbance Code(s): F03.90 - Unspecified dementia without behavioral disturbance Status: Chronic Assessment and Plan: See above. He remains on his home Depakote, Seroquel. (4) CAD (coronary artery disease) of artery bypass graft: Qualifiers: [place] vs. transplanted heart: [place] heart Associated angina: without angina Qualified Code(s): I25.810 - Atherosclerosis of coronary artery bypass graft(s) without angina pectoris Code(s): I25.810 - Atherosclerosis of coronary artery bypass graft(s) without angina pectoris Status: Chronic Assessment and Plan: Stable. History of cardiac valve replacement and coronary stent placement. He remains on his home Plavix and Eliquis, metoprolol. (5) Atrial fibrillation: Qualifiers: Atrial fibrillation type: unspecified Qualified Code(s): I48.91 - Unspecified atrial fibrillation Code(s): I48.91 - Unspecified atrial fibrillation Status: Chronic Assessment and Plan: Cardioversion attempted 04/10/2020, unsuccessful converted back to AFib. -Continue his amiodarone and Eliquis. He is a patient of Dr. Hunter. (6) CKD stage 4 due to type 1 diabetes mellitus: Code(s): E10.22 - Type 1 diabetes mellitus with diabetic chronic kidney disease; N18.4 - Chronic kidney disease, stage 4 (severe) Status: Acute Assessment and Plan: Renal function at baseline, will monitor. (7) COPD (chronic obstructive pulmonary disease): Qualifiers: COPD type: unspecified COPD Qualified Code(s): J44.9 - Chronic obstructive pulmonary disease, unspecified Code(s): J44.9 - Chronic obstructive pulmonary disease, unspecified Status: Chronic Assessment and Plan: No evidence of respiratory distress. Continue with home medications. (8) Congestive
[2020-05-16] MEDS: POTASSIUM CHLORIDE 20 MEQ TABLET PO (16:07)
[2020-05-16 17:18] LABS: Glucose Point of Care 102 (65-105)
[2020-05-16 19:47] LABS: Carbamazepine Tegretol 9.4 mcg/mL (4.0-12.0)
[2020-05-16] MEDS: DIVALPROEX SODIUM DR 250 MG TABEC 750 MG PO (20:05)
[2020-05-16] MEDS: QUEtiapine FUMARATE XR 50 MG TAB.ER.24H 150 MG PO (20:06)
[2020-05-16] MEDS: MELATONIN 3 MG TABLET PO (20:06)
[2020-05-16] MEDS: METOPROLOL SUCCINATE EXT REL 100 MG TABCR 200 MG PO (20:06)
[2020-05-16] MEDS: ROSUVASTATIN 10 MG TABLET 20 MG PO (20:06)
[2020-05-16] MEDS: TAMSULOSIN HCL 0.4 MG CAPSULE PO (20:06)
[2020-05-16 22:03] LABS: Glucose Point of Care 127 (65-105)
[2020-05-17] VITALS (7 sets, daily range): BP systolic 109–128; BP diastolic 63–89; PULSE 76–94; RESP 17–18; TEMP 35.8–36.6; O2SAT 97–100; BMI 10.0
[2020-05-17] MEDS: LEVOTHYROXINE SODIUM 125 MCG TABLET PO (06:33)
[2020-05-17 06:44] LABS: Anion Gap 12 mmol/L (8-16); Blood Urea Nitrogen 42 mg/dL (9-20); Carbon Dioxide 24 mmol/L (22-30); Chloride 105 mmol/L (98-107); Estimated CRCL calculation 23 ml/min; Estimated Glomerular Filt Rate 17; Glucose 103 mg/dL (75-110); Potassium 3.5 mmol/L (3.4-5.0); Sodium 141 mmol/L (137-145)
[2020-05-17 07:51] LABS: Glucose Point of Care 104 (65-105)
[2020-05-17] MEDS: FINASTERIDE 5 MG TABLET PO (09:05)
[2020-05-17] MEDS: FAMOTIDINE 20 MG TABLET PO ×2 (09:05→17:19)
[2020-05-17] MEDS: FUROSEMIDE 40 MG TABLET PO (09:05)
[2020-05-17] MEDS: MULTIVITAMINS /C LUTEIN (CENTRUM SILVER) TABLET *BKC 1 TAB PO (09:06)
[2020-05-17] MEDS: DIVALPROEX SODIUM DR 250 MG TABEC 500 MG PO (09:06)
[2020-05-17] MEDS: DOCUSATE SODIUM 100 MG CAPSULE PO ×2 (09:06→17:19)
[2020-05-17] MEDS: CLOPIDOGREL BISULFATE 75 MG TABLET PO (09:06)
[2020-05-17] MEDS: DULoxetine HCL 60 MG CAPSULE.DR PO (09:06)
[2020-05-17] MEDS: PANTOPRAZOLE 40 MG TABLET PO (09:07)
[2020-05-17] MEDS: APIXABAN 5 MG TABLET PO ×2 (09:07→20:24)
[2020-05-17] MEDS: AMIODARONE HCL 200 MG TABLET PO ×2 (09:07→20:25)
[2020-05-17 11:05] LABS: Glucose Point of Care 135 (65-105)
--- NOTE | 2020-05-17 12:16 | WPDNEUROPN ---
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 Code(s): E11.9 - Type 2 diabetes mellitus without complications Status: Acute (3) Atrial fibrillation with RVR: Code(s): I48.91 - Unspecified atrial fibrillation Status: Acute (4) Hallucinations: Code(s): R44.3 - Hallucinations, unspecified Status: Acute (5) Hypertension: Qualifiers: Hypertension type: unspecified Qualified Code(s): I10 - Essential (primary) hypertension Code(s): I10 - Essential (primary) hypertension Status: Chronic Additional Plan stable, consider the long-term unit in addition will obtain the MRI of cervical and thoracic spine if not done previously Review of Systems Review of Systems: All systems reviewed & are unremarkable except as noted in HPI and below Exam Const: General: no acute distress Nutritional Appearance: average body habitus and thin Limitations: behavioral limitations and physical limitations HENMT: Head: normocephalic Ears: hearing grossly normal bilaterally General nose exam: Normal external nose present Face and sinus: normal facial exam Mouth: Yes Normal oral and palatal mucosa present Eyes: General: appearance normal, both eyes and all related structures Neck: Neck: full ROM Cardio: Rate: regular rate Rhythm: regular rhythm GI: Auscultation: normal bowel sounds Neuro: General: oriented to person and oriented to place Cranial nerves: Yes CN's II-XII intact bilaterally Cognition (Neuro): normal cognition and abnormal cognition ( fluctuating mental status yesterday was awake alert carried out conversat) Motor exam (neuro): Pronator motor function not present, No tremor noted, No asterixis, Motor fasciculations not present, Normal motor muscle tone present throughout and Motor abnormalities not present Sensory Exam: Sensory deficit (Neuro) and Abnormal lower extremity sensory exam Deep tendon reflexes (DTR's): Right triceps reflex intensity grade: 1+, Left triceps reflex intensity grade: 1+, Rt Biceps (C5, C6): 1+, Left biceps reflex intensity grade: 1+, Right brachioradialis reflex intensity grade: 1+, Left brachioradialis reflex intensity grade: 1+, Right patellar reflex intensity grade: 1+, Left patellar reflex intensity grade: 1+, Right ankle reflex intensity grade: 1+ and Left ankle reflex intensity grade: 1+ Plantar Reflex Responses: downgoing: right and equivocal: left and bilateral Psych: Appearance: disheveled Speech and movement: Slowed speech present (Psych) Affect: Labile affect present Attitude: Guarded attititude/behavior present Thought process: Circumstantial thought process present Insight: Limited insight present (Psych) Judgement: Limited judgement present (Psych) Objective Data Vital Signs Vital Signs: Vital Signs - 24 hr 05/16/20 14:20 05/16/20 19:47 05/16/20 20:03 Temperature 36.4 C L 36.6 C Pulse Rate 57 L 111 H 111 H Respiratory Rate 18 20 Blood Pressure 136/73 140/74 Pulse Oximetry 95 94 05/16/20 20:06 05/16/20 23:11 05/17/20 06:15 Temperature 36.6 C Pulse Rate 111 H 73 87 Respiratory Rate 17 18 Blood Pressure 124/89 Pulse Oximetry 95 98 05/17/20 08:10 05/17/20 09:07 Temperature 35.9 C L Pulse Rate 76 76 Respiratory Rate 18 Blood Pressure 128/63 Pulse Oximetry 100 Intake/Output Intake/Output: Intake & Output 05/14/20 05/15/20 05/16/20 05/17/20 23:59 23:59 23:59 23:59 Intake Total 930 1610 535 920 Output Total 600 400 Balance 930 1010 535 520 Meds/Results Medication
--- NOTE | 2020-05-17 14:04 | PM.IMPN ---
Progress Note: A&P Assessment and Plan (1) Acute delirium: Code(s): R41.0 - Disorientation, unspecified Status: Acute Assessment and Plan: Resolved -could be multifactorial with a combination of new medication carbamazepine, possible seizure, low Depakote level, and history of dementia -UA negative for infection -anion gap normal -Patient has history of dementia and has history of becoming confused with hallucinations at times. His describes that he is normally up and walking and talking but a lot of times does not make sense. She describes in the last 1 week, he has become more confused. 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 She describes it does not seem like he has weakness, but rather poor comprehension as if he does not remember how to do these tasks (standing, walking, chewing/swallowing food). -He was recently started on Tegretol 05/08/20 and his noted these worsening symptoms 2 days following the initiation of new Tegretol. This was stopped and his AMS resolved -Neurology consulted. He is a patient of Dr Mendez's. -EEG was abnormal -Tegretol level is a send-out lab and is still pending. -CT brain with evidence of his old strokes, without any evidence of acute intracranial abnormalities. -COVID less likely d/t normal inflammatory markers and no symptoms -will decrease Seroquel since he is more confused in the morning (2) Generalized weakness: Code(s): R53.1 - Weakness Status: Acute Assessment and Plan: Pt has been getting more and more weak throughout this last year -Pt not doing well with PT and OT -MRI of spine ordered -left leg weaknesses noted on exam. Previous notes state this is chronic on multiple occasions -Will likely need SNF (3) Seizure: Code(s): R56.9 - Unspecified convulsions Status: Chronic Assessment and Plan: Patient had first tonic-clonic seizure in December 2019 and has been maintained on Depakote. He did have another seizure on 04/20/2020, Depakote level was low at that time, and followed up with Dr. Mendez outpatient. At that time his Depakote dose was increased in addition to being started on a new Tegretol 05/08/2020. See above, Tegretol has been stopped. -Further medication adjustments per Dr. Mendez. He recommends depakote 750 BID (4) Dementia: Qualifiers: Dementia type: unspecified type Dementia behavioral disturbance: with behavioral disturbance Qualified Code(s): F03.91 - Unspecified dementia with behavioral disturbance Code(s): F03.90 - Unspecified dementia without behavioral disturbance Status: Chronic Assessment and Plan: See above. He remains on his home Depakote, Seroquel. (5) CAD (coronary artery disease) of artery bypass graft: Qualifiers: [place] vs. transplanted heart: [place] heart Associated angina: without angina Qualified Code(s): I25.810 - Atherosclerosis of coronary artery bypass graft(s) without angina pectoris Code(s): I25.810 - Atherosclerosis of coronary artery bypass graft(s) without angina pectoris Status: Chronic Assessment and Plan: Stable. History of cardiac valve replacement and coronary stent placement. He remains on his home Plavix and Eliquis, metoprolol. (6) Atrial fibrillation: Qualifiers: Atrial fibrillation type: unspecified Qualified Code(s): I48.91 - Unspecified atrial fibrillation Code(s): I48.91 - Unspecified atrial fibrillation Status: Chronic Assessment and Plan: Cardioversion attempted 04/10/2020, unsuccessful converted back to AFib. -Continue his amiodarone and Eliquis. He is a patient of Dr. Hunter. (7) CKD stage 4 due to type 1 diabetes mellitus: Code(s): E10.22 - Type 1 diabetes mellitus with diabetic chronic kidney disease; N18.4 - Chronic kidney disease, stage 4 (severe) Status: Ac
--- NOTE | 2020-05-17 14:15 | PCOTNOTE ---
Attempted OT treatment, patient unable to follow one step commands, kept closing eyes and unable to participate to complete bilateral UE exercises or ADLs. will attempt tomorrow for OT treatment, RN notified
--- NOTE | 2020-05-17 14:18 | PC.NURSE ---
On 05/17/20, the student, [ Tisha Rodrigez], provided care and completed [facility] documentation on this patient. I have reviewed the student's documentation and agree with the findings.
[2020-05-17 16:56] LABS: Glucose Point of Care 141 (65-105)
[2020-05-17] MEDS: ROSUVASTATIN 10 MG TABLET 20 MG PO (20:23)
[2020-05-17] MEDS: TAMSULOSIN HCL 0.4 MG CAPSULE PO (20:23)
[2020-05-17] MEDS: QUEtiapine FUMARATE XR 50 MG TAB.ER.24H 100 MG PO (20:24)
[2020-05-17] MEDS: MELATONIN 3 MG TABLET PO (20:24)
[2020-05-17] MEDS: METOPROLOL SUCCINATE EXT REL 100 MG TABCR 200 MG PO (20:25)
[2020-05-17] MEDS: DIVALPROEX SODIUM DR 250 MG TABEC 750 MG PO (20:25)
[2020-05-17 20:29] LABS: Glucose Point of Care 152 (65-105)
[2020-05-18 02:20] VITALS: PULSE 84; RESP 16; O2SAT 96
[2020-05-18 06:00] VITALS: BP 131/67; PULSE 95; RESP 18; TEMP 35.5; O2SAT 100
[2020-05-18] MEDS: LEVOTHYROXINE SODIUM 125 MCG TABLET PO (06:38)
[2020-05-18 08:20] LABS: Glucose Point of Care 109 (65-105)
[2020-05-18] MEDS: DULoxetine HCL 60 MG CAPSULE.DR PO (09:18)
[2020-05-18 09:19] VITALS: PULSE 95
[2020-05-18] MEDS: AMIODARONE HCL 200 MG TABLET PO ×2 (09:19→20:10)
[2020-05-18] MEDS: DIVALPROEX SODIUM DR 250 MG TABEC 750 MG PO ×2 (09:19→20:08)
[2020-05-18] MEDS: APIXABAN 5 MG TABLET PO ×2 (09:20→20:09)
[2020-05-18] MEDS: PANTOPRAZOLE 40 MG TABLET PO (09:20)
[2020-05-18] MEDS: FUROSEMIDE 80 MG TABLET PO (09:20)
[2020-05-18] MEDS: MULTIVITAMINS /C LUTEIN (CENTRUM SILVER) TABLET *BKC 1 TAB PO (09:20)
[2020-05-18] MEDS: DOCUSATE SODIUM 100 MG CAPSULE PO (09:20)
[2020-05-18] MEDS: FINASTERIDE 5 MG TABLET PO (09:20)
[2020-05-18] MEDS: CLOPIDOGREL BISULFATE 75 MG TABLET PO (09:20)
[2020-05-18] MEDS: FAMOTIDINE 20 MG TABLET PO ×2 (09:21→16:43)
[2020-05-18 12:32] LABS: Glucose Point of Care 140 (65-105)
[2020-05-18 13:51] VITALS: BP 133/81; PULSE 74; RESP 16; TEMP 35.9; O2SAT 100
--- NOTE | 2020-05-18 15:24 | PM.CNCAR ---
Assessment and Plan Assessment and plan (1) Atrial fibrillation: Qualifiers: Atrial fibrillation type: unspecified Qualified Code(s): I48.91 - Unspecified atrial fibrillation Code(s): I48.91 - Unspecified atrial fibrillation Status: Chronic Assessment and Plan: he has been on Eliquis. His significant other states that he has not missed any doses over the past 3 weeks and beyond. He is on amiodarone. Plan was to perform an outpatient elective cardioversion. He is here and I think it is reasonable to perform cardioversion before discharge. He has been on amiodarone for about 6 weeks. He does not need a LEIF. Will keep NPO after midnight for cardioversion only tomorrow. Will check a basic metabolic panel and magnesium level. (2) Dementia: Qualifiers: Dementia type: unspecified type Dementia behavioral disturbance: with behavioral disturbance Qualified Code(s): F03.91 - Unspecified dementia with behavioral disturbance Code(s): F03.90 - Unspecified dementia without behavioral disturbance Status: Chronic Assessment and Plan: Significant (3) CAD (coronary artery disease) of artery bypass graft: Qualifiers: [place] vs. transplanted heart: [place] heart Associated angina: without angina Qualified Code(s): I25.810 - Atherosclerosis of coronary artery bypass graft(s) without angina pectoris Code(s): I25.810 - Atherosclerosis of coronary artery bypass graft(s) without angina pectoris Status: Chronic Assessment and Plan: asymptomatic at this point (4) Valvular heart disease: Code(s): I38 - Endocarditis, valve unspecified Status: Acute Assessment and Plan: history of bioprosthetic aortic valve replacement and mitral valve repair History of Present Illness History of Present Illness Consult date/time: 05/18/20 15:24 Requesting physician: Dixie Erickson PA-C Consult reason: atrial fibrillation Reason For Visit: [place] Narrative: date of service 05/18/2020 History: Patient is a 60-year-old male patient of Dr. Hunter who has a history of atrial fibrillation. Also has a history of a PRESTON to LAD, mitral valve repair and aortic valve replacement with a bioprosthetic valve in August of 2018. He has had several cardioversions in the past and has been intermittently on amiodarone. Failed cardioversion with Multaq. He also has PVD with stenting by vascular surgery. His significant CKD also. He has been seen numerous times in the past by either Dr. Hunter were Selin menjivar. In reviewing the chart record, it appears the patient had recurrent atrial fibrillation in March of this year. He was on Multaq temporarily and cardioversion performed which was not successful. He was then started on amiodarone with the intention and plan to be seen in the office tomorrow and if still in atrial fibrillation undergo an outpatient elective cardioversion a couple of weeks. Patient was admitted though recently because of inability to stand up, difficulty in following commands and difficulty walking. This was thought to be related to some new seizure medications. His medications have been changed and his Depakote has been increased. Cardiology consultation is requested by his significant other as the patient is to be discharged to a nursing facility in [place]. Obviously transfer and perform an outpatient elective cardioversion will be difficult while there. Therefore the request is to consider cardioversion while here as an inpatient. Patient denies any chest pain, syncope, presyncope, paroxysmal nocturnal dyspnea, orthopnea, edema or palpitations. No significant bleeding problems or shortness of breath. Review of Systems Review of Systems: All systems reviewed & are unremarkable except as noted in HPI and below Constitutional: Constitutional: Reports fatigue and Reports weakness Eyes: Eyes: Denies blurry vision ENT: Repor
[2020-05-18 16:22] LABS: Glucose Point of Care 102 (65-105)
--- NOTE | 2020-05-18 16:25 | PM.IMPN ---
Progress Note: A&P Assessment and Plan (1) Acute delirium: Code(s): R41.0 - Disorientation, unspecified Status: Acute Assessment and Plan: Resolved -could be multifactorial with a combination of new medication carbamazepine, possible seizure, low Depakote level, and history of dementia -UA negative for infection -anion gap normal -Patient has history of dementia and has history of becoming confused with hallucinations at times. His describes that he is normally up and walking and talking but a lot of times does not make sense. She describes in the last 1 week, he has become more confused. 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 She describes it does not seem like he has weakness, but rather poor comprehension as if he does not remember how to do these tasks (standing, walking, chewing/swallowing food). -He was recently started on Tegretol 05/08/20 and his noted these worsening symptoms 2 days following the initiation of new Tegretol. This was stopped and his AMS resolved -Neurology consulted. He is a patient of Dr Mendez's. -EEG was abnormal -Tegretol level WNL -CT brain with evidence of his old strokes, without any evidence of acute intracranial abnormalities. -COVID less likely d/t normal inflammatory markers and no symptoms -Seroquel decreased since he is more confused in the morning. continue Depakote 750 b.i.d. (2) Generalized weakness: Code(s): R53.1 - Weakness Status: Acute Assessment and Plan: Pt has been getting more and more weak throughout this last year -Pt not doing well with PT and OT -MRI of spine showed no spinal cord compression -left leg weaknesses noted on exam. Previous notes state this is chronic on multiple occasions -Will likely need SNF (3) Seizure: Code(s): R56.9 - Unspecified convulsions Status: Chronic Assessment and Plan: Patient had first tonic-clonic seizure in December 2019 and has been maintained on Depakote. He did have another seizure on 04/20/2020, Depakote level was low at that time, and followed up with Dr. Mendez outpatient. At that time his Depakote dose was increased in addition to being started on a new Tegretol 05/08/2020. See above, Tegretol has been stopped. -Further medication adjustments per Dr. Mendez. He recommends depakote 750 BID (4) Dementia: Qualifiers: Dementia type: unspecified type Dementia behavioral disturbance: with behavioral disturbance Qualified Code(s): F03.91 - Unspecified dementia with behavioral disturbance Code(s): F03.90 - Unspecified dementia without behavioral disturbance Status: Chronic Assessment and Plan: See above. He remains on his home Depakote, Seroquel. (5) CAD (coronary artery disease) of artery bypass graft: Qualifiers: [place] vs. transplanted heart: [place] heart Associated angina: without angina Qualified Code(s): I25.810 - Atherosclerosis of coronary artery bypass graft(s) without angina pectoris Code(s): I25.810 - Atherosclerosis of coronary artery bypass graft(s) without angina pectoris Status: Chronic Assessment and Plan: Stable. History of cardiac valve replacement and coronary stent placement. He remains on his home Plavix and Eliquis, metoprolol. (6) Atrial fibrillation: Qualifiers: Atrial fibrillation type: unspecified Qualified Code(s): I48.91 - Unspecified atrial fibrillation Code(s): I48.91 - Unspecified atrial fibrillation Status: Chronic Assessment and Plan: Cardioversion attempted 04/10/2020, unsuccessful converted back to AFib. -Continue his amiodarone and Eliquis. He is a patient of Dr. Hunter. -plan for cardioversion tomorrow morning (7) CKD stage 4 due to type 1 diabetes mellitus: Code(s): E10.22 - Type 1 diabetes mellitus with diabetic chronic kidney disease; N18.4 -
[2020-05-18] MEDS: QUEtiapine FUMARATE XR 50 MG TAB.ER.24H 100 MG PO (20:07)
[2020-05-18] MEDS: ROSUVASTATIN 10 MG TABLET 20 MG PO (20:08)
[2020-05-18] MEDS: TAMSULOSIN HCL 0.4 MG CAPSULE PO (20:09)
[2020-05-18] MEDS: MELATONIN 3 MG TABLET PO (20:09)
[2020-05-18 20:10] VITALS: PULSE 80
[2020-05-18] MEDS: METOPROLOL SUCCINATE EXT REL 100 MG TABCR 200 MG PO (20:10)
[2020-05-18 20:12] LABS: SARS-CoV-2 RNA PCR Negative
[2020-05-18 20:57] LABS: Glucose Point of Care 111 (65-105)
[2020-05-18 21:38] VITALS: BP 148/87; PULSE 87; RESP 18; TEMP 36.3; O2SAT 98
[2020-05-19] VITALS (12 sets, daily range): BP systolic 108–153; BP diastolic 56–97; PULSE 49–120; RESP 12–20; TEMP 36.1–36.5; O2SAT 92–100
[2020-05-19] MEDS: LEVOTHYROXINE SODIUM 125 MCG TABLET PO (05:31)
[2020-05-19 06:06] LABS: Hematocrit 31.3 % (42.0-52.0); Mean Corpuscular HGB Conc 31.9 g/dl (32-36); Mean Corpuscular Hemoglobin 27.3 pg (26-34); Mean Corpuscular Volume 85.5 fl (80-100); Mean Platelet Volume 9.9 fl (7.4-10.4); Platelet Count Result 132 k/mm3 (150-375); Red Blood Count 3.66 M/mm3 (4.6-6.20); Red Cell Distribution Width 15.8 % (11.5-14.5); White Blood Count 6.1 K/mm3 (4.5-10.0)
[2020-05-19 06:15] LABS: Anion Gap 12 mmol/L (8-16); Blood Urea Nitrogen 42 mg/dL (9-20); Calcium 8.7 mg/dL (8.4-10.2); Carbon Dioxide 27 mmol/L (22-30); Chloride 100 mmol/L (98-107); Estimated CRCL calculation 21 ml/min; Estimated Glomerular Filt Rate 15; Glucose 103 mg/dL (75-110); Magnesium 2.1 mg/dL (1.6-2.3); Potassium 3.3 mmol/L (3.4-5.0); Sodium 139 mmol/L (137-145)
[2020-05-19] MEDS: APIXABAN 5 MG TABLET PO ×2 (10:46→20:09)
[2020-05-19] MEDS: DULoxetine HCL 60 MG CAPSULE.DR PO (10:46)
[2020-05-19] MEDS: FINASTERIDE 5 MG TABLET PO (10:46)
[2020-05-19] MEDS: DOCUSATE SODIUM 100 MG CAPSULE PO ×2 (10:46→17:20)
[2020-05-19] MEDS: FUROSEMIDE 40 MG TABLET PO (10:46)
[2020-05-19] MEDS: FAMOTIDINE 20 MG TABLET PO ×2 (10:46→17:21)
[2020-05-19] MEDS: POTASSIUM CHLORIDE 20 MEQ TABLET PO (10:47)
[2020-05-19] MEDS: CLOPIDOGREL BISULFATE 75 MG TABLET PO (10:47)
[2020-05-19] MEDS: AMIODARONE HCL 200 MG TABLET PO ×2 (10:47→20:10)
[2020-05-19] MEDS: DIVALPROEX SODIUM DR 250 MG TABEC 750 MG PO ×2 (10:47→20:10)
[2020-05-19] MEDS: PANTOPRAZOLE 40 MG TABLET PO (10:47)
[2020-05-19] MEDS: MULTIVITAMINS /C LUTEIN (CENTRUM SILVER) TABLET *BKC 1 TAB PO (10:47)
--- NOTE | 2020-05-19 11:01 | PC.NURSE ---
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
--- NOTE | 2020-05-19 11:21 | WPDMODSED ---
Moderate Sedation Note-Pt Data Patient Data Diagnosis: Paroxysmal atrial fibrillation with recurrence Patient loaded with amiodarone as an outpatient Coronary artery disease with previous surgical revascularization Dimension Present Complaint: Fatigue/TARIQ Procedure to be performed/Plan: DC cardioversion Allergies Allergy/AdvReac Type Severity Reaction Status Date / Time Penicillins Allergy Unknown Rash Verified 05/16/20 16:07 tramadol Allergy Rash Verified 05/16/20 16:07 carbamazepine AdvReac Unresponsiv Verified 05/16/20 16:07 e Home Medications Medication Instructions Recorded Confirmed Type clopidogrel 75 mg PO DAILY 11/12/19 05/12/20 History metoprolol succinate 200 mg PO HS 11/12/19 05/12/20 History rosuvastatin 20 mg PO HS 11/12/19 05/12/20 History tamsulosin 0.4 mg PO HS 11/12/19 05/12/20 History duloxetine 60 mg PO DAILY 11/13/19 05/12/20 History pantoprazole 40 mg PO DAILY 11/13/19 05/12/20 History melatonin 3 mg PO HS #30 tablet 11/18/19 05/12/20 Rx docusate sodium 100 mg PO BID 01/01/20 05/12/20 History ferrous sulfate [Iron (ferrous 142 mg PO DAILY 01/01/20 05/12/20 History sulfate)] furosemide 40 mg PO EVERY OTHER DAY 01/01/20 05/12/20 History levothyroxine 125 mcg PO DAILY 01/01/20 05/12/20 History hydrocodone-acetaminophen 1 tablet PO QID PRN #0 tablet 01/11/20 05/12/20 Rx Adults Multivitamin 1 tablet PO DAILY 04/09/20 05/12/20 History Narcan 1 spray INTRANASAL PRN PRN 04/09/20 05/12/20 History apixaban 5 mg PO BID 04/09/20 05/12/20 History evolocumab 140 mg SUBCUT [id number] 04/09/20 05/12/20 History famotidine 20 mg PO BID 04/09/20 05/12/20 History finasteride 5 mg PO DAILY 04/09/20 05/12/20 History fluticasone propionate 1 spray INTRANASAL DAILY PRN 04/09/20 05/12/20 History furosemide 80 mg PO EVERY OTHER DAY 04/09/20 05/12/20 History hydroxyzine HCl 25 mg PO TID PRN 04/09/20 05/12/20 History prochlorperazine maleate 10 mg PO Q6H PRN 04/09/20 05/12/20 History [Compazine] quetiapine 150 mg PO HS 04/09/20 05/12/20 History amiodarone [Pacerone] 200 mg PO Q12H #60 tablet 04/10/20 05/12/20 Rx Depakote 750 mg PO HS 05/12/20 05/13/20 History carbamazepine 200 mg PO BID 05/12/20 05/12/20 History divalproex [Depakote] 500 mg PO DAILY 05/12/20 05/12/20 History insulin aspart U-100 [Novolog See Rx Instructions .ROUTE .COMPLEX 05/13/20 05/13/20 History U-100 Insulin aspart] Current Medications: Active Medications Acetaminophen (Acetaminophen 500 Mg Tablet) 1,000 mg PO Q6H PRN PRN Reason: Pain or Fever Last Admin: 05/14/20 12:10 Dose: 1,000 mg Documented by: Amiodarone HCl (Amiodarone Hcl 200 Mg Tablet) 200 mg PO Q12HR [facility] Last Admin: 05/19/20 10:47 Dose: 200 mg Documented by: Apixaban (Apixaban 5 Mg Tablet) 5 mg PO Q12HR [facility] Last Admin: 05/19/20 10:46 Dose: 5 mg Documented by: Clopidogrel Bisulfate (Clopidogrel Bisulfate 75 Mg Tablet) 75 mg PO DAILY [facility] Last Admin: 05/19/20 10:47 Dose: 75 mg Documented by: Dextrose (Dextrose 50% 25 Gm/50 Ml Syringe) 12.5 gm IV PUSH PRN PRN; Protocol PRN Reason: Hypoglycemia Divalproex Sodium (Divalproex Sodium Dr 250 Mg [place]) 750 mg PO [facility] Last Admin: 05/18/20 20:08 Dose: 750 mg Documented by: Divalproex Sodium (Divalproex Sodium Dr 250 Mg [place]) 750 mg PO DAILY [facility] Last Admin: 05/19/20 10:47 Dose: 750 mg Documented by: Docusate Sodium (Docusate Sodium 100 Mg Capsule) 100 mg PO BID [facility] Last Admin: 05/19/20 10:46 Dose: 100 mg Documented by: Duloxetine HCl (Duloxetine Hcl 60 Mg Capsule.Dr) 60 mg PO DAILY [facility] Last Admin: 05/19/20 10:46 Dose: 60 mg Documented by: Famotidine (Famotidine 20 Mg Tablet) 20 mg PO BID [facility] Last Admin: 05/19/20 10:46 Dose: 20 mg Documented by: Finasteride (Finasteride 5 Mg Tablet) 5 mg PO DAILY [facility] Last Admin: 05/19/20 10:46 Dose: 5 mg Documented by: Fluticasone Propionate (Fluticasone Propionate 0.05% Na Spr 16 Gm Btl (*Bkc)) 1 spray NASAL DAILY PRN PRN Reason: Allergy Symptoms Furosemide
--- NOTE | 2020-05-19 11:30 | ECG_ITS ---
Measurements Intervals [place] Rate: 49 P: 24 WV: 196 QRS: 64 QRSD: 113 T: 83 QT: 482 QTc: 435 Interpretive Statements SINUS BRADYCARDIA INTRAVENTRICULAR CONDUCTION DELAY NONSPECIFIC ST & T-WAVE ABNORMALITY- DIFFUSE LEADS ABNORMAL ECG Electronically Signed On 05-19-2020 12:03:55 INSURANCE PRODUCER by Deondre Wise D.O.
--- NOTE | 2020-05-19 11:30 | P.PCNCC_ITS ---
Cardiac Cath Procedure Note Date of procedure:: 05/19/20 Performing physician:: Jose Manuel Hendricks MD Indication:: Recurrent atrial fibrillation Brief clinical history:: This is a patient with coronary artery disease, previous bypass grafting and valvular heart disease. He has a history of paroxysmal atrial fibrillation. He has been loaded with amiodarone after failing to maintain sinus rhythm with Multaq. An attempt at restoring sinus rhythm electrically has been recommended. Procedure Procedure performed:: DC cardioversion Sedation/Medication given:: Propofol in aliquots total dosage of 60 mg given Estimated blood loss:: No blood loss Procedure note:: Patient was brought to the cathode washer holding area in the postabsorptive state. The defibrillator patches were placed in the AP position. He was then sedated with propofol in aliquots a total dose to 60 mg was given which provided excellent sedation. He was then counter shock in a synchronized fashion with 200 joules x1 shock restoring sinus bradycardia. Findings:: As above Conclusion:: Successful uncomplicated DC cardioversion of recurrent atrial fib to sinus bradycardia following loading with amiodarone and systemic anticoagulation with apixaban. Jose Manuel Hendricks MD [facility]
--- NOTE | 2020-05-19 12:16 | PC.NURSE ---
Pt returned from [facility] per bed.
[2020-05-19 12:21] LABS: Glucose Point of Care 102 (65-105)
--- NOTE | 2020-05-19 15:00 | PM.DS ---
DS: Admitting Diagnosis Admitting Diagnosis Admitting Diagnosis: AMS DS: Discharge Diagnosis Discharge Diagnosis (1) Acute delirium: Code(s): R41.0 - Disorientation, unspecified Status: Acute Assessment and Plan: Resolved -Likely due to new medication carbamazepine, possible seizure, low Depakote level, and history of dementia -UA negative for infection -anion gap normal -He was recently started on Tegretol 05/08/20 and his noted these worsening symptoms 2 days following the initiation of new Tegretol. This was stopped and his AMS resolved -Neurology consulted and saw the patient throughout his stay -EEG was abnormal, depakote increased -Tegretol level WNL -CT brain with evidence of his old strokes, without any evidence of acute intracranial abnormalities. -COVID less likely d/t normal inflammatory markers and no symptoms -Seroquel decreased since he is more confused in the morning. continue Depakote 750 b.i.d. (2) Generalized weakness: Code(s): R53.1 - Weakness Status: Acute Assessment and Plan: Pt has been getting more and more weak throughout this last year -Pt not doing well with PT and OT -MRI of spine showed no spinal cord compression -left leg weaknesses noted on exam. Previous notes state this is chronic on multiple occasions -discharge to SNF (3) Seizure: Code(s): R56.9 - Unspecified convulsions Status: Chronic Assessment and Plan: Patient had first tonic-clonic seizure in December 2019 and has been maintained on Depakote. He did have another seizure on 04/20/2020, Depakote level was low at that time, and followed up with Dr. Mendez outpatient. At that time his Depakote dose was increased in addition to being started on a new Tegretol 05/08/2020. See above, Tegretol has been stopped. -Further medication adjustments per Dr. Mendez. He recommends depakote 750 BID (4) Dementia: Qualifiers: Dementia type: unspecified type Dementia behavioral disturbance: with behavioral disturbance Qualified Code(s): F03.91 - Unspecified dementia with behavioral disturbance Code(s): F03.90 - Unspecified dementia without behavioral disturbance Status: Chronic Assessment and Plan: See above. He remains on his home Depakote, Seroquel. (5) CAD (coronary artery disease) of artery bypass graft: Qualifiers: [place] vs. transplanted heart: [place] heart Associated angina: without angina Qualified Code(s): I25.810 - Atherosclerosis of coronary artery bypass graft(s) without angina pectoris Code(s): I25.810 - Atherosclerosis of coronary artery bypass graft(s) without angina pectoris Status: Chronic Assessment and Plan: Stable. History of cardiac valve replacement and coronary stent placement. He remains on his home Plavix and Eliquis, metoprolol. (6) Atrial fibrillation: Qualifiers: Atrial fibrillation type: unspecified Qualified Code(s): I48.91 - Unspecified atrial fibrillation Code(s): I48.91 - Unspecified atrial fibrillation Status: Chronic Assessment and Plan: Cardioversion attempted 04/10/2020, unsuccessful converted back to AFib. -Cardioversion 05/19/20 successful and pt now in NSR -Continue his amiodarone and Eliquis. He is a patient of Dr. Hunter. (7) CKD stage 4 due to type 1 diabetes mellitus: Code(s): E10.22 - Type 1 diabetes mellitus with diabetic chronic kidney disease; N18.4 - Chronic kidney disease, stage 4 (severe) Status: Acute Assessment and Plan: Renal function at baseline, will monitor. (8) COPD (chronic obstructive pulmonary disease): Qualifiers: COPD type: unspecified COPD Qualified Code(s): J44.9 - Chronic obstructive pulmonary disease, unspecified Code(s): J44.9 - Chronic obstructive pulmonary disease, unspecified Status: Chronic Assessment and Plan: No evidence of resp
[2020-05-19 16:40] LABS: Glucose Point of Care 131 (65-105)
[2020-05-19] MEDS: QUEtiapine FUMARATE XR 50 MG TAB.ER.24H 100 MG PO (20:10)
[2020-05-19] MEDS: ROSUVASTATIN 10 MG TABLET 20 MG PO (20:10)
[2020-05-19] MEDS: MELATONIN 3 MG TABLET PO (20:10)
[2020-05-19] MEDS: METOPROLOL SUCCINATE EXT REL 100 MG TABCR 200 MG PO (20:10)
[2020-05-19] MEDS: TAMSULOSIN HCL 0.4 MG CAPSULE PO (20:11)
[2020-05-19 21:12] LABS: Glucose Point of Care 155 (65-105)
== END 2020-05-19 21:04 | DRG 948 ==
LOC: ANHED 15:15 → ANH3MED 15:57
PROVIDERS: Family Medicine; Internal Medicine Cardiovascular Disease; Nurse Practitioner; Physician Assistant; Specialist; Admitting Provider Family Medicine; Emergency Provider Emergency Medicine; Visit Provider Physician Assistant
PROC: 5A2204Z Restoration of Cardiac Rhythm, Single (ICD-10-PCS; principal; 2020-05-19 11:00)
DX: R41.0 Disorientation, unspecified (principal); I13.0 Hypertensive heart and chronic kidney disease with heart failure and stage 1 through stage 4 chronic kidney disease, or unspecified chronic kidney disease; N18.4 Chronic kidney disease, stage 4 (severe); I25.810 Atherosclerosis of coronary artery bypass graft(s) without angina pectoris; F03.91 Unspecified dementia, unspecified severity, with behavioral disturbance; I38 Endocarditis, valve unspecified; I50.22 Chronic systolic (congestive) heart failure; D63.1 Anemia in chronic kidney disease; T42.1X5A Adverse effect of iminostilbenes, initial encounter; Z20.822 Contact with and (suspected) exposure to COVID-19; I48.0 Paroxysmal atrial fibrillation; R44.3 Hallucinations, unspecified; R53.1 Weakness; E11.22 Type 2 diabetes mellitus with diabetic chronic kidney disease; E11.42 Type 2 diabetes mellitus with diabetic polyneuropathy; G40.909 Epilepsy, unspecified, not intractable, without status epilepticus; E86.0 Dehydration; N40.0 Benign prostatic hyperplasia without lower urinary tract symptoms; R30.0 Dysuria; J44.9 Chronic obstructive pulmonary disease, unspecified; E03.9 Hypothyroidism, unspecified; K21.9 Gastro-esophageal reflux disease without esophagitis; G47.33 Obstructive sleep apnea (adult) (pediatric); E78.5 Hyperlipidemia, unspecified; Z79.01 Long term (current) use of anticoagulants; Z79.02 Long term (current) use of antithrombotics/antiplatelets; Z79.4 Long term (current) use of insulin; Z79.899 Other long term (current) drug therapy; Z87.891 Personal history of nicotine dependence; Z86.73 Personal history of transient ischemic attack (TIA), and cerebral infarction without residual deficits; Z88.0 Allergy status to penicillin; Z88.5 Allergy status to narcotic agent; Z88.8 Allergy status to other drugs, medicaments and biological substances; Z95.2 Presence of prosthetic heart valve; Z95.5 Presence of coronary angioplasty implant and graft; Z95.820 Peripheral vascular angioplasty status with implants and grafts
CPT/HCPCS: 36415; 51701; 70450; 72141; 72146; 72148; 80048; 80053; 80156; 80164; 80165; 80177; 80307; 81001; 82140; 82550; 82728; 82948; 83036; 83615; 83735; 84100; 84439; 84443; 84480; 84484; 85025; 85027; 86140; 92507; 92523; 92526; 92610; 92960; 93005; 95816; 96360; 97110; 97116; 97161; 97166; 97530; 97535; 99285; A9270; C9803; G0378; J2704; J7040; J7120; U0003; U0005